=== PATIENT | female | born 1935 | race Caucasian/White ===

== ENCOUNTER 2023-09-21 10:09 | Emergency (ER) | payer MEDICARE, SELFPAY ==
[2023-09-21 10:16] VITALS: BP 183/63; PULSE 56; RESP 20; TEMP 36.7; O2SAT 98
--- NOTE | 2023-09-21 10:37 | ED.SOB ---
HPI - SOB/Dyspnea General Chief Complaint: Unspecified Stated Complaint: Swelling / doesn't feel well History of Present Illness HPI Narrative: Patient presents stating that she just does not feel well. Patient states she has had a 5 lb weight gain over the last 2 weeks and complains of increased swelling to both of her lower extremities with were swelling to the left than the right. Patient is short of breath at rest but denies a history of COPD. 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 Patient also reports that her blood pressure has been elevated home and she has a headache with dizziness at rest. Patient denies any syncopal episodes denies any chest pain. Related Data Home Medications Medication Instructions Recorded Confirmed cephalexin 500 mg capsule See Rx Instructions .Route .COMPLEX 09/21/23 09/21/23 cholecalciferol (vitamin D3) 25 25 mcg PO DAILY 09/21/23 09/21/23 mcg (1,000 unit) tablet (Vitamin D3) cyanocobalamin (vitamin B-12) 1,000 mcg PO DAILY 09/21/23 09/21/23 1,000 mcg tablet donepezil 5 mg tablet 5 mg PO DAILY 09/21/23 09/21/23 escitalopram oxalate 10 mg tablet 10 mg PO DAILY 09/21/23 09/21/23 hydralazine 25 mg tablet 25 mg PO BID 09/21/23 09/21/23 ipratropium bromide 21 mcg (0.03 See Rx Instructions .Route .COMPLEX 09/21/23 09/21/23 %) nasal spray levothyroxine 25 mcg tablet 25 mcg PO DAILY 09/21/23 09/21/23 lisinopril 20 mg tablet 20 mg PO DAILY 09/21/23 09/21/23 meclizine 25 mg tablet 25 mg PO QID PRN Dizziness 09/21/23 09/21/23 metoprolol succinate 25 mg 25 mg PO DAILY 09/21/23 09/21/23 tablet,extended release 24 hr oxybutynin chloride 10 mg 10 mg PO DAILY 09/21/23 09/21/23 tablet,extended release 24 hr ropinirole 2 mg tablet 2 mg PO DAILY 09/21/23 09/21/23 solifenacin 10 mg tablet 10 mg PO DAILY 09/21/23 09/21/23 Allergies Allergy/AdvReac Type Severity Reaction Status Date / Time No Known Allergies Allergy Unverified 09/21/23 10:20 Review of Systems Review of Systems: CONSTITUTIONAL: Denies fever, chills, or sweats. EYES: Denies visual changes, redness, or discharge. ENT: Denies rhinorrhea, congestion, sore throat, or otalgia. CARDIOVASCULAR: Denies chest pain, palpitations, or edema. RESPIRATORY: Denies cough or dyspnea. GASTROINTESTINAL: Denies abdominal pain, nausea, vomiting, or diarrhea. GENITOURINARY: Denies dysuria or hematuria. SKIN: Denies rash or itching. MUSCULOSKELETAL: Denies back pain, joint pain, or myalgia. NEUROLOGIC: Denies headache, numbness, or weakness. PSYCHIATRIC: Denies anxiety or depression. PMFSH Comments At time of signature, agree with nursing past medical, surgical, social and family history. There is no relevant family history pertinent to the presenting complaint Exam Narrative: GENERAL: Well-appearing, well-nourished, and in no acute distress. HEAD: Normocephalic, atraumatic. EYES: PERRLA and EOMI. ENT: Nares clear, no rhinorrhea or epistaxis. Mucous membranes moist. NECK: Supple. CHEST: No respiratory distress. Lungs diminished all 4 quadrants HEART: Regular rate and rhythm. No murmur heard. Normal peripheral pulses. ABDOMEN: Soft, nontender, nondistended, normal active bowel sounds. EXTREMITIES: Normal range of motion. Bilateral edema to both lower extremities with 1+2 left lower extremity pedal pulses palpable SKIN: Warm, dry, no rash. NEURO: No focal deficits. Alert and oriented x3. Darlene Coma Scale Eye Opening: Spontaneous 4 Isabel Coma Scale Motor: Obeys Commands 6 Darlene Coma Scale Verbal: Oriented 5 Isabel Coma Scale Total 15 Course Course Level of Care: Express Care Visit Vital Signs Vital signs: Vital Signs Temperature 36.7 C 09/21/23 10:16 Pulse Rate 56 L 09/21/23 10:16 Respiratory Rate 20 09/21/23 10:16 Blood Pressure 183/63 H 09/21/23 10:16 Pulse Oximetry 98
== END 2023-09-21 10:40 | disposition short-term general hospital (02) ==
PROVIDERS: Emergency Provider Nurse Practitioner Family; PCP Internal Medicine
DX: R06.00 Dyspnea, unspecified (principal); R60.0 Localized edema; R42 Dizziness and giddiness; E78.00 Pure hypercholesterolemia, unspecified; I10 Essential (primary) hypertension; E11.9 Type 2 diabetes mellitus without complications; E03.9 Hypothyroidism, unspecified; Z85.828 Personal history of other malignant neoplasm of skin
CPT/HCPCS: 99212; G0463

== ENCOUNTER 2024-09-24 10:35 | Outpatient (CLI) | payer MEDICARE, SELFPAY ==
--- OUTSIDE RECORDS SUMMARY | 2024-09-24 10:42 | XMS_ITS | Clinical Summary ---
Author Organization [facility] [address] Address [address] [place] [address] Phone Care Team Providers Care Lead Care Manager Name Role Phone Pierre Fuentes Primary Care Provider [phone] Allergies Active Allergy Reactions Criticality Noted Date Comments Penicillin G Itching Low Simvastatin Muscle pain Medium Reaction: Myalgias, Sulfa (Sulfonamide Antibiotics) Unknown Medications cyanocobalamin (Vitamin B-12) 1,000 mcg tablet Take 1 tablet (1,000 mcg total) by mouth daily Active meclizine (ANTIVERT) 25 mg tablet Take 1 tablet (25 mg total) by mouth 4 (four) times a day as needed for dizziness 100 tablet 2 Active solifenacin (VESIcare) 10 mg tablet Take 1 tablet (10 mg total) by mouth daily 30 tablet 11 4 Active escitalopram (LEXAPRO) 10 mg tablet Take 1 tablet (10 mg total) by mouth daily 90 tablet 1 4 Active UNABLE TO FIND 1 each daily Med Name: Neuriva Active donepeziL (ARICEPT) 5 mg tablet Take 1 tablet by mouth once daily 90 tablet 1 4 Active Additional Information Patient taking differently: 5 mg oral Nightly, Take 1 tablet by mouth once daily, Reported on 01/16/2024 levothyroxine (SYNTHROID) 25 mcg tablet Take 1 tablet by mouth once daily 90 tablet 1 4 Active Additional Information Patient taking differently: 25 mcg oral Daily (early AM), Reported on 01/16/2024 oxyBUTYnin XL (DITROPAN-XL) 10 mg 24 hr tablet Take 1 tablet (10 mg total) by mouth daily 4 Active amLODIPine (NORVASC) 2.5 mg tablet Take 1 tablet (2.5 mg total) by mouth daily Active ipratropium (ATROVENT) 21 mcg (0.03 %) nasal spray USE 2 SPRAY(S) IN EACH NOSTRIL TWICE DAILY Active lisinopriL (PRINIVIL,ZESTR IL) 20 mg tablet Take 1 tablet by mouth once daily 90 tablet 4 Active Additional Information Patient taking differently: 20 mg oral Daily, Reported on 01/16/2024 polyethylene glycol (MIRALAX) 17 gram/dose bulk powder Take 17 g by mouth daily 510 g 4 Active rOPINIRole (REQUIP) 2 mg tabletIndicatio ns:Restless legs Take 1 tablet by mouth nightly 90 tablet 4 Active Active Problems Problem Noted Date Diagnosed Date Bilateral impacted cerumen 02/18/2024 Assessment & Plan (02/18/2024 3:52 PM CDT): Avoid ear cleaning techniques Have hearing aids evaluated by Dr [facility] Acute blood loss anemia 01/17/2024 Hematochezia 01/16/2024 Assessment & Plan (01/16/2024 11:03 PM CDT): Pt with BRBPR during several bowel movements x1 day. Differentials include brisk diverticular bleed, colorectal cancer, hemorrhoidal bleed, angiodysplasia. Hgb 10.0 on presentation, acutely decreased from 12.2 on 12/03. - GI consult - NPO from midnight - IVF - continue to monitor CBC STANTON (acute kidney injury) 01/16/2024 Assessment & Plan (01/16/2024 11:14 PM CDT): Patient noted to have STANTON with Cr 1.91 over baseline 1.56 (1 month ago). Suspect due to relative hypovolemia and systemic illness. Currently producing urine; will defer additional lab/imaging diagnostics pending fluid resuscitation. - BMP - s/p 1 L IVF - Continue NS 100 mL/hr - Consider UA with microscopy, Renal/bladder US, Mann, UCr if refractory or significant STANTON - renally dose medications Other forms of dyspnea 11/28/2023 Basal cell carcinoma (BCC) of skin of nose 09/28 Assessment & Plan (10/01/2023 11:11 AM CDT): Continue to cleanse nose and apply Aquaphor ointment twice daily and as needed for 2 more weeks Assessment & Plan (09/29/2023 11:54 AM CDT): Continue to cleanse area twice daily and apply Aquaphor ointment for constant layer Follow up next week for further suture removal Lesion of nose 09/10/2023 Assessment & Plan (09/15/2023 1:47 PM CDT): Excision of 1 cm Nasal dorsum skin lesion with Frozen section and graft or flap repair Risks and complications: Anesthesia, bleeding, infection, benign versus malignant pathology, recurrence of lesion, injury to arteries, nerves and veins, scarring and need for further treatment Assessment & Plan (09/10/2023 10:59 AM CDT): Patient has a lesion on her nose states will not heal she is very concerned worried about it I am going to refer her to Ear Nose and Throat for evaluation. 88 years old I do not want to refer her to [place] to her Ear Nose and Throat or corporate development officer take a look at this so we will for for her to Dr. Xavier at [facility] Persistent cough 08/26/2023 Assessment & Plan (09/10/2023 10:57 AM CDT): Patient has been taking Roxanna. Thinks it is making her feel hung over advised to discontinue the medication. She has not convinced that really helped her in the 1st place. Cough is allergy related so-so chest pain or shortness a breath or fever or chills. She is understands it may just have to run his course with allergy changes Assessment & Plan (08/26/2023 12:30 PM CDT): Patient has a persistent cough productive she is very worried about this chest x-ray was negative patient is so advised. Cough has been present about 3-6 weeks postnasal drainage associated with cough Anxiety 12/30/2022 Assessment & Plan (01/16/2024 11:11 PM CDT): On escitalopram 10 mg p.o. daily prior to admission - citalopram 10 mg p.o. od Assessment & Plan (09/10/2023 10:57 AM CDT): Patient advised me that the citalopram at 5 mg daily is not working would like something stronger advised patient we will increase the dose to 10 mg.. Patient's notify me if this is ineffective. Acute rhinitis 10/08/2022 Assessment & Plan (10/08/2022 3:47 PM CDT): Runny nose for weeks, no other sinus symptoms. Was not tested for COVID. No acute findings on exam. Encouraged Flonase as directed. Can use claritin also. Increase fluids (water) Cool mist humidifier at night Use sinus rinses to help flush bacteria and help with congestion. Encouraged honey, marshmallows, or chloraseptic to help coat throat. Call with any worsening or persistent symptoms. Restless legs 08/20/2022 Assessment & Plan (01/16/2024 11:11 PM CDT): Continue Ropinirole 2 mg p.o. b.i.d. Assessment & Plan (02/22/2023 4:12 PM CDT): Requip 2 mg daily has helped her with her leg cramps. She would like greater improvement but does not want to go to higher dose of the Requip because of side effects . I have no other recommendations at this time patient's so advised Assessment & Plan (12/30/2022 6:08 PM CDT): Patient did not get immediate relief so she stopped taking the medication. Advised patient she needs to resume medication and I am increasing the dose from 1 mg at HS to 2 mg. Assessment & Plan (08/21/2022 1:00 PM CDT): Patient is having restless legs syndrome . Patient's heart day and night. I am starting her on ropinirole 1 mg 2-3 hours before bedtime dispensed 30 with 3 refills. Conductive hearing loss, bilateral 05/16/2022 Assessment & Plan (10/08/2022 3:48 PM CDT): Patient states hearing aides have not helped symptoms. No acute findings on exam. Keep follows with tank house operator. Encouraged flonase and antihistamine as needed for rhinitis. Assessment & Plan (05/16/2022 5:59 PM PRINT LINE SUPERVISOR): Patient did follow through in see the tank house operator. 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 04/04 Assessment & Plan (04/19/2022 12:29 PM PRINT LINE SUPERVISOR): Patient is a poor historian she noticed that she is having more and more difficulty hearing out of her right ear will refer to audiology Overactive bladder 10/07/2019 Assessment & Plan (01/16/2024 11:10 PM CDT): On solifenacin 10 mg po od, oxybutynin XL 10 mg po od at home - continue oxybutynin XL Assessment & Plan (09/10/2023 10:56 AM CDT): Patient states oxybutynin is not working therefore I am going to give this patient a trial of VESIcare 10 mg daily Assessment & Plan (02/22/2023 4:10 PM CDT): Patient's is very happy with results with oxybutynin. Assessment & Plan (08/21/2022 1:01 PM CDT): Symptoms remain control on present medication Ditropan/oxybutynin 10 mg daily Assessment & Plan (11/17/2021 3:41 PM CDT): Symptoms controlled with present medication Assessment & Plan (06/15/2021 2:34 PM PRINT LINE SUPERVISOR): Symptoms well control on present medication no change in therapy Assessment & Plan (08/22/2020 4:51 PM CDT): Patient's condition reasonable control present medication no change in therapy Assessment & Plan (10/07/2019 5:02 PM CDT): Patient complains of frequency urgency and sometimes incontinence month started on oxybutynin 10 mg daily. Medicare annual wellness visit, subsequent 03/03 Assessment & Plan (08/26/2023 12:28 PM CDT): History and physical completed patient's health risk assessment health maintenance reviewed in addressed. Patient's my care for 20 years she is doing very well . Her diabetes has been well controlled patient is not nearly as anxious she has been in the past when her was in living in deteriorating health.. EGFR lipid profile not indicated and 88-year-old lady who is diabetes is excellent. Assessment & Plan (08/21/2022 12:59 PM CDT): History and physical completed patient's health risk assessment health maintenance reviewed in addressed. No new health problems since her last visit with me. Patient's anxiety is decreased over the past year. Diabetes well controlled patient is very stable. Assessment & Plan (06/15/2021 2:32 PM PRINT LINE SUPERVISOR): History and physical completed patient's health risk assessment health maintenance reviewed in addressed. No new health problems since her last visit with me. Patient's health is overall unchanged for last 3 years. She is diabetic which is been well controlled. He has a long anxiety unchanged Assessment & Plan (08/22/2020 4:51 PM CDT): History and physical completed patient's health risk assessment health maintenance reviewed in addressed. Patient's COVID vaccine completed. Assessment & Plan (03/03/2019 2:15 PM CDT): Patient's history and physical completed health risk assessment also come reviewed in completed patient is 84 years old she is doing very well.. Is not in ears anxious today as on previous occasions anxiety seems to be reasonably controlled. I have no new recommendations for this patient she is able to her activities daily living without significant difficulties.. Patient given Prevnar 13 and immunization today Chronic vertigo 07/20/2017 Assessment & Plan (08/22/2020 4:53 PM CDT): Reviewed with this patient she has seen specialists before for this problem.. Patient is description often times describes positional vertigo.. He is aware to fact she that she needs to slow down in changing positions. [place] straining did not help her. Antivert is no longer helping. She complains of her legs jumping at night and frequent dizziness I mother trial on amitriptyline 10 mg see if this will not help. Assessment & Plan (12/29/2018 4:30 PM CDT): Patient constantly complains of dizziness. Had a walk today she had a normal gait I reassured her she has a normal gait. She is afraid on going down stairs she uses four quad cane when doing this. In talking with this patient she admits that she has had a fear of dizziness 40 year in reality is no worse than it was years ago. She discontinue meclizine last has not had any negative effects of getting off this medicine.. In fact she has a little bit more energy without the meclizine. She is less sleepy.. I advised this patient that the dizziness is predominant psychological up more than physiological and is probably going to always be a part of her.. Reassured this patient that she is doing very well for age her gait is normal in terms of steps distance and pace of her walking. Assessment & Plan (04/06/2018 6:26 PM PRINT LINE SUPERVISOR): Patient in the past with complaint of dizziness very frequently on her visit today this not a problem. Assessment & Plan (12/13/2017 4:11 PM CDT): Patient's dizziness is continues I do not think is ever going to go away several times a week she has seen ear nose and throat with this particular problem. Very worried about if she tolerates it is not progressed over the last 5 years. Assessment & Plan (10/15/2017 5:50 PM CDT): Patient's saw Dr. Banuelos for dizziness workup was negative . She was referred to Neurology at [facility] Patient not going to follow through on this because of appointment is into February. Patient realizes not a long time weight since she has been having dizziness 20+ years or longer. She feels the meclizine does help her. Assessment & Plan (07/20/2017 5:58 PM CDT): Patient's dizziness is a chronic problems getting worse she has been using meclizine which helps sometimes. With her dizziness she has no severe headaches no nausea no vomiting no hearing loss. Referred to Ear Nose and Throat for evaluation. SOB (shortness of breath) on exertion 06/21/2017 Assessment & Plan (12/30/2022 6:09 PM CDT): Patient complains breath. Especially on exertion he ambulated in the office using a pulse ox had no difficulty to saturation remained above 94% patient is reassured that she is breathing normal. Patient has a history of anxiety this is an expression of that. Assessment & Plan (04/06/2018 6:26 PM PRINT LINE SUPERVISOR): Patient on previous visits frequently complained of dyspnea today this is not a problem. Assessment & Plan (06/21/2017 4:55 PM PRINT LINE SUPERVISOR): Nonspecific dyspnea check a BNP level Type 2 diabetes mellitus wit hout complication, without long-term current use of insulin 09/18/2013 Overview (08/07/2016): DMII WO CMP NT ST UNCNTR Assessment & Plan (01/16/2024 11:04 PM CDT): Last HbA1c: 6.5 on 08/24; BG 202 on presentation Diet controlled - Pt placed on SSI Assessment & Plan (08/26/2023 12:29 PM CDT): No polyuria polyphagia polydipsia. BP well controlled HgbA1c 6.5 no change in therapy Hgb A1C Estim. Avg Glu (eAG) Latest Ref Rng 4.0 - 5.6 % mg/dL 03/02/2019 6.4 (H) 137 07/12/2019 6.2 (H) 131 03/10/2020 6.3 (H) 134 02/12/2021 6.4 (H) 137 11/16/2021 6.8 (H) 148 04/18/2022 6.5 (H) 140 08/25/2023 6.5 (H) 140 Legend: (H) High Assessment & Plan (02/22/2023 4:12 PM CDT): Hemoglobin HgbA1c has been ordered patient will postpone the test to another date. Diabetic 20 years excellent controlled Assessment & Plan (08/21/2022 1:02 PM CDT): Diabetes has consistently been well controlled HgbA1c less than 6.5 Assessment & Plan (05/16/2022 5:57 PM PRINT LINE SUPERVISOR): Diabetes very well controlled hemoglobin HgbA1c 6.5 Assessment & Plan (04/19/2022 12:23 PM PRINT LINE SUPERVISOR): Diabetes remains well controlled HgbA1c 6.5 no change in therapy Assessment & Plan (11/17/2021 3:40 PM CDT): Update patient's hemoglobin HgbA1c get a BMP would like to know patient's renal functions.. Assessment & Plan (06/15/2021 2:33 PM PRINT LINE SUPERVISOR): Patient's diabetes is well controlled past 4 years her HgbA1c ranges been between 6.0-6.4. Foot exam is normal. Diabetic 20+ years I see no benefit in getting a urine microalbuminuria on this lady at age 86 stable diabetes. Lipid profile done. Blood pressure controlled. Assessment & Plan (02/12/2021 5:49 PM CDT): Update patient's hemoglobin HgbA1c results respect to her diabetes she has been doing very well.. Retinopathy and no nephropathy or neuropathy she has been diabetic 20 plus years. Assessment & Plan (08/22/2020 4:52 PM CDT): Diabetes consistently well control no laboratory studies today Assessment & Plan (03/10/2020 5:27 PM PRINT LINE SUPERVISOR): Check patient's HgbA1c today. Is not bring her glucometer today. Assessment & Plan (11/19/2019 2:55 PM CDT): Glucometer was reviewed blood pressure well control no change in therapy Assessment & Plan (10/07/2019 5:05 PM CDT): Diabetes is continues to be well controlled metformin discontinue. Assessment & Plan (05/06/2019 10:54 AM PRINT LINE SUPERVISOR): Patient's HgbA1c is been excellent him discontinue metformin because of potential cause of diarrhea she has been a diabetic over 20+ years. See her back in the next 3 months HgbA1c 1 week before. Assessment & Plan (03/03/2019 2:16 PM CDT): Patient's HgbA1c came back at 6.4 I reviewed a glucometer she has not had any hypoglycemic reactions patient's diabetic foot exam is very good and I eye exam is current. Assessment & Plan (02/19/2019 6:25 PM CDT): Patient's last hemoglobin HgbA1c was 5.8. Reviewed patient's glucometer findings results were excellent. PATIENT'S DISAPPOINTED BECAUSE HER GLUCOSE SOMETIMES REACHES 166. CHANGE OF HER GLUCOMETER READINGS FOR FROM 104-166. PATIENT'S ADVISED HGBA1C IS EXCELLENT AND THAT HER DIABETES IS VERY WELL CONTROLLED. NO CHANGES IN THERAPY NO EVIDENCE OF HYPOGLYCEMIA BY DESCRIPTION ARE REVIEWING HER GLUCOMETER RESULTS. PATIENT LEFT SOMEWHAT DISSATISFIED BECAUSE OF HER GLUCOSE READINGS IN THE 160S.. Assessment & Plan (04/06/2018 6:25 PM PRINT LINE SUPERVISOR): Patient glucometer readings very good in the low 100s. No change in therapy check a hemoglobin HgbA1c today. B12 Assessment & Plan (12/13/2017 4:13 PM CDT): Diabetes is unchanged. Continue current treatment regimen. Reminded to bring in blood sugar diary at next visit. Dietary recommendations for ADA diet. Discussed ways to avoid symptomatic hypoglycemia. Diabetes will be reassessed in 6 months. Hemoglobin HgbA1c 6.0. Hyperlipidemia 09/18/2013 Overview (08/07/2016): HYPERLIPIDEMIA NEC/NOS Assessment & Plan (10/07/2019 5:04 PM CDT): Discontinue simvastatin as a possible cause of her diarrhea Acquired hypothyroidism 09/18/2013 Overview (08/09/2016): HYPOTHYROIDISM NOS Assessment & Plan (01/16/2024 11:04 PM CDT): On levothyroxine 25 mcg po od prior to admission TSH 2.01 08/2022 - continue same Assessment & Plan (08/21/2022 1:01 PM CDT): TSH level in therapeutic range Assessment & Plan (03/10/2020 5:26 PM PRINT LINE SUPERVISOR): TSH levels have been in therapeutic range will update lab today. Assessment & Plan (07/19/2019 6:07 PM CDT): Update patient's TSH level Assessment & Plan (03/03/2019 2:21 PM CDT): Patient's hypothyroid remains a well controlled Assessment & Plan (08/10/2018 5:57 PM CDT): TSH level in therapeutic range recheck on the next visit. Assessment & Plan (04/06/2018 6:24 PM PRINT LINE SUPERVISOR): TSH level will be checked today. Assessment & Plan (12/13/2017 4:13 PM CDT): Continue to monitor TSH level as well as no change in therapy medication this time. Hypertension, essential 09/18/2013 Overview (08/09/2016): HYPERTENSION NOS Assessment & Plan (01/16/2024 11:05 PM CDT): On amlodipine 2.5 mg po od, hydralazine 25 mg po bid, lisinopril 20 mg po od, toprol XL 25 mg po od - continue same Assessment & Plan (08/26/2023 12:27 PM CDT): Blood pressure readings 146/66 previous blood pressures have been at goal less than 140 systolic less than 90 diastolic is 88 years old and doing well no change in therapy Assessment & Plan (02/22/2023 4:10 PM CDT): Blood pressure remains well controlled patient is tolerating medications no change in therapy Assessment & Plan (12/30/2022 6:08 PM CDT): Blood pressure remains well controlled patient is tolerating medications no change in therapy Assessment & Plan (08/21/2022 1:02 PM CDT): Blood pressure results excellent continue present therapy no symptoms referable to hypertension. Assessment & Plan (04/19/2022 12:22 PM PRINT LINE SUPERVISOR): Blood pressure is elevated today will make no changes. Here back in one-month Assessment & Plan (11/17/2021 3:40 PM CDT): Blood pressure well controlled patient continues present therapy. Assessment & Plan (06/15/2021 2:35 PM PRINT LINE SUPERVISOR): Hypertension remains well control no change in therapy Assessment & Plan (03/27/2021 4:47 PM PRINT LINE SUPERVISOR): Blood pressure remains well controlled increase in pain over joint special left hip. Assessment & Plan (02/12/2021 5:48 PM CDT): Hypertension remains well control no change in therapy Assessment & Plan (03/10/2020 5:25 PM PRINT LINE SUPERVISOR): Blood pressure well controlled patient has no new health problems since her last visit. She is tolerating medications no change in therapy. Assessment & Plan (10/07/2019 5:03 PM CDT): Hypertension well controlled patient is tolerating the present medication no change in therapy. Assessment & Plan (03/03/2019 2:15 PM CDT): Hypertension remains well control no change in therapy Assessment & Plan (02/19/2019 6:26 PM CDT): Hypertension reasonably controlled patient is somewhat anxious today. She has no nausea vomiting no headaches no chest pain. Patient is chronically dizzy for 20 years. Assessment & Plan (12/29/2018 4:27 PM CDT): I added hydralazine 25 mg b.i.d. To her her regimen week ago her blood pressure is very well controlled at this time.. She is tolerating medications she has no side effects no change in therapy at this point. Assessment & Plan (12/26/2018 3:45 PM CDT): Patient's high blood pressure can be very high on some occasions and other times the blood pressure is well controlled patient has been to the emergency room on repeated occasions for blood pressure. She also has a high anxiety level. Patient's blood pressure today is 182/90. Patient does not feel well her pulse is 49 repeated blood pressure is similar pulse and blood pressures were obtained he here in office again. Patient has no chest pain no shortness of breath no severe headaches no diplopia she feels tired which is a chronic problem. And she has dizziness also chronic. I wrote out clear instructions for this patient reviewed with her understands she is to his not take metoprolol for blood pressure. Minutes started on hydralazine 25 mg daily and she is to continue lisinopril 20 mg daily.. Did not think at this time this patient will follow instructions well enough to take hydralazine 3 times a day. I will see this patient back in 3-4 days re-evaluate her blood pressure and pulse. Review of her chart visits prior to this time her pulse is been acceptable above 50. Assessment & Plan (10/19/2018 2:40 PM CDT): I received several phone calls from home health last week in a week for regarding patient's blood pressure. Patient has some occasions refused to come in. On October 16, 2018 she did not feel well advised to get an appointment she walked into the office without appointment I talked to her we checked her blood pressure extraordinary high 200/110. Referred this patient to emergency room advised him prior to arrival. Blood pressure in emergency room was 210 /96 he was treated emergency room observe for several hours released.. She does not feel as nervous anxious or is bad today she did Friday as several other day. Patient's stress concerns regarding her gait. She feels unsteady on her feet she will not use a walker. She is agreeable to start using her cane again.. Patient knows her blood pressure medicines I am going to continue on her present medicine on metoprolol and lisinopril her blood pressure is 119 over 55. Patient give me a progress report later this week. I spent at least 20 minutes of sleep is discussing her hypertension medications and the need for her to use a walker since she is concerned about falling. See her in 2 months. Assessment & Plan (08/10/2018 5:59 PM CDT): Hypertension well controlled patient is tolerating the medication no change in therapy. Assessment & Plan (04/06/2018 6:24 PM PRINT LINE SUPERVISOR): Hypertension is unchanged. Continue current treatment regimen. Dietary sodium restriction. Continue current medications. Blood pressure will be reassessed at the next regular appointment. Assessment & Plan (12/13/2017 4:12 PM CDT): Hypertension is unchanged. Continue current treatment regimen. Blood pressure will be reassessed at the next regular appointment. Assessment & Plan (10/15/2017 5:58 PM CDT): Blood pressure elevated today patient is asymptomatic however she is quite a bit more anxious today than usual will monitor blood pressure on outpatient basis per no change in therapy at this time. She has had elevations like this in the past office and after visit blood pressure comes down however I did not repeat blood pressure today in visit. Assessment & Plan (07/20/2017 5:57 PM CDT): Patient's blood pressure is elevated with a diastolic of 100 this is unusual for her. Patient's more anxious today she has no severe headaches chest pain or shortness of breath. No change in medication will continue monitor blood pressure. Assessment & Plan (03/09/2017 9:20 PM PRINT LINE SUPERVISOR): Hypertension is unchanged. Continue current treatment regimen. Dietary sodium restriction. Continue current medications. Blood pressure will be reassessed at the next regular appointment. Patient's patient's blood pressure is well controlled. Diverticulosis of intestine 03/09/2012 Overview (08/09/2016): Diverticulosis Osteoarthritis 03/09/2012 Overview (08/09/2016): Osteoarthritis Assessment & Plan (03/27/2021 4:46 PM PRINT LINE SUPERVISOR): Patient a of increasing pain in left hip she is convinced she has a fracture despite having no history of a fall. Or any trauma to the hip.. Patient has some symptoms consistent with osteoarthritis and possible bursitis. X-ray of her hip shows degenerative changes and no fracture. Place this patient on prednisone 20 mg twice a day for 10 days progress report next Friday. Patient has been taking about 800 ibuprofen for the day with mild response in terms of pain she has is advised stop ibuprofen while taking the prednisone. Assessment & Plan (02/12/2021 5:51 PM CDT): Patient is having a lot a hip pain is calling his sciatica is more likely this osteoarthritis. Occasional heat or ice to the area. At her age I do not want to take any non steroidal anti-inflammatory as a first-line therapy recommend and ruled out for her to take arthritis Tylenol 1 tablet 3 times a day.. This patient can not ambulate and weightbear without any difficulty. Resolved Problems Problem Noted Date Diagnosed Date Resolved Date Sensation of plugged ear on right side 02/12/2021 06/15/2021 Assessment & Plan (02/12/2021 5:53 PM CDT): Normal exam patient was given samples Zyrtec dry. Ear pain, right 12/23/2019 03/27/2021 Assessment & Plan (12/23/2019 3:44 PM CDT): Patient is not a good historian she complains of with sounds like of sensation of fullness in a year. He denies actual pain. He has been hard hearing for years. Examination of her ear is completely normal he does have some mucus production a nasal pack. No sore throat no fever no chills no headaches.. Possible mild parotitis I gave some Roxanna see if it will help her. Her the 180 mg 10 the samples given. Chronic diarrhea 10/07/2019 11/17/2021 Assessment & Plan (08/22/2020 4:52 PM CDT): Continue Lomotil. Assessment & Plan (11/19/2019 2:54 PM CDT): Patient is here for because of diarrhea and we sent a prescription to [facility] go through head call it and. Diarrhea has improved she is doing well.. Denies any blood or mucus in her stools Assessment & Plan (10/07/2019 5:02 PM CDT): Patient complains of chronic diarrhea she is no longer taking metformin. Plans at this time discontinue simvastatin is a possible cause of her diarrhea. Patient is a poor historian her she may still be taking the metformin.. I am going to start her on Lomotil 2.5 mg b.i.d. I dispense 40. Onychomycosis 07/19/2019 08/22/2020 Assessment & Plan (07/19/2019 6:05 PM CDT): Patient concerned about fungal toenail she has minimal findings on her feet. Been using athlete's feet clean. Patient's advised that up problems a minimal she can continue to athlete's foot cream as needed. Patient reassured this health conditions not a wrist her overall health. Pain of right lower extremity 06/22/2019 08/22/2020 Assessment & Plan (06/22/2019 4:25 PM PRINT LINE SUPERVISOR): S/p fall that occurred greater than one month. She reports numbness and tingling associated in the RLE. Reflex intact, ROM normal, pulses present and no discoloration. Given known injury we will do xray to r/o any acute fracture. Localized edema 06/22/2019 02/12/2021 Assessment & Plan (06/22/2019 4:24 PM PRINT LINE SUPERVISOR): Patient with bilateral lower extremity R>L that occurred post fall over one month ago. She has pain and slight erythema of the RLE. Given her sedentary lifestyle and persistent edema we will do venous doppler to r/o DVT. If no DVT noted have encouraged her to decrease her salt intake and to keep feet elevated to level of heart. She can also use compression for edema. Pain of left lower extremity 06/22/2019 08/22/2020 Assessment & Plan (03/10/2020 5:26 PM PRINT LINE SUPERVISOR): Patient's nonspecific hip pain very mild. Tylenol as needed. Patient is very concerned about her gait. Patient's gait is normal and consistent with someone 85 years of age. Head congestion 05/06/2019 11/19/2019 Assessment & Plan (05/06/2019 10:51 AM PRINT LINE SUPERVISOR): Patient having a lot head congestion mainly nasal passages blockage postnasal drainage no headache no fever no chills some coughing. I recommend this lady try the nasal rinse call simply saline I gave her photocopy of the product she can get a [facility]. No pills are given. Patient's exam is benign lungs are clear no wheezing no rhonchi the mucus in the nasal passage. Generalized anxiety disorder 02/19/2019 08/20/2022 Assessment & Plan (05/16/2022 5:58 PM PRINT LINE SUPERVISOR): Lexapro has made a significant improvement in his patient's mood anxiety is less depression is gone will continue 5 mg daily. Assessment & Plan (04/19/2022 12:22 PM PRINT LINE SUPERVISOR): Patient is not having outbreaks of anger diabetes gotten worse and depression symptoms I am going to discontinue BuSpar start her on Lexapro 5 mg daily see her back in one-month Assessment & Plan (11/17/2021 3:41 PM CDT): Patient's recently diet he been sick for several years. Her anxiety level least 50-75%. Patient is here with her medical power managing attorney who concurs that since her passed patient's more focused and anxiety levels down. Assessment & Plan (06/15/2021 2:35 PM PRINT LINE SUPERVISOR): Patient's anxiety days focus on her 's recent become a patient of mine. This patient is 89 years old he cares on reasonable conversation he walks with the are a slow gait he has advanced arthritis. Patient had bruises easily and skin is thin he sometimes has some bleeding. Laceration scan she is very focus on this bleeding is minimal I advised her is no series consequences from the bleeding is nothing anyone can do he is not on aspirin or blood thinners.. Assessment & Plan (11/19/2019 2:55 PM CDT): Anxieties complete improved over the past year Assessment & Plan (10/07/2019 5:04 PM CDT): Anxieties continues to be improved will continue BuSpar. Assessment & Plan (07/19/2019 6:02 PM CDT): Patient has a generalized anxiety disorder less intense today it has been in the past. Assessment & Plan (03/03/2019 2:20 PM CDT): Today's date patient's general anxiety is very calm and controlled. Assessment & Plan (02/19/2019 6:35 PM CDT): Patient admitted she is very anxious she complains of not being walk straight, she complains that her vision is not right. Patient is seen the manager oncology as sure vision she informs me that day advised her vision was normal.. Patient's gait is normal despite she feels like she is walking awkwardly. He does consistent with someone her age of 84. She is across chronic history of dizziness worry about her 's health. She is on BuSpar. Patient request that she is start on Aricept she because of memory. Patient's mini-mental exam was a 26. Patient was started on Aricept 5 mg daily. Patient's advised Aricept has lots of side effects specially GI. I spent 45 minutes some more going over with very is symptomatology the most likely psychologically related than actual disease UTI (urinary tract infection) 02/19/2019 03/03/2019 Assessment & Plan (02/19/2019 6:34 PM CDT): Patient's convinced she has UTI because of back pain in the morning. She tells and back pain goes away after she urinates.. Patient would not be status foot I without having a urinalysis. However when she was sent to the lab she was not able to give a specimen.. Feeling tired 12/26/2018 02/12/2021 Assessment & Plan (11/19/2019 2:55 PM CDT): Patient's fatigue is resolved she feels well no particular complaints today.. She is less anxious which is I think a big part of her sensation of fatigue. Assessment & Plan (07/19/2019 6:01 PM CDT): Discussed patient's impression of fatigue. Her level of function consistent with a a patient so advised. I previously done laboratory studies for fatigue they were all negative. Assessment & Plan (12/29/2018 4:28 PM CDT): Patient does not have any symptoms of fatigue at this time it may be related to the fact she to stop taking the Antivert.. Part of her fatigue I have always believe was psychological. Assessment & Plan (12/26/2018 3:42 PM CDT): Patient complains of feeling tired she is not any more [place] than this. He has had this complaint on previous occasions. Focus is a lot on feeling dizzy this been going on least 3 years. Takes the meclizine. Possible meclizine is aggravating her sense of feeling tired. Previous TSH level in B12 levels have been normal. This patient does have bradycardia today pulse rate of 49. She saw her orthopedic physician several weeks and had a very slow pulse at that time. Medication changes are made to improve her pulse patient will be seen in the next few days for monitoring. Pityriasis in adult 10/19/2018 10/20/19 19 Diarrhea 08/10/2018 07/19/2019 Assessment & Plan (05/06/2019 10:52 AM PRINT LINE SUPERVISOR): Advised patient totally stop metformin and simvastatin. Both these medications can cause diarrhea she is 84 years old she is very bothered by the diarrhea. Advised to call me in 1 week can give me a progress report anticipate if the medications because that she be 90% improved between 2 and 4 weeks after discontinuing. Assessment & Plan (08/10/2018 5:55 PM CDT): Patient advised me she is having diarrhea 6 months to a year multiple times a day she goes to the bathroom sometimes watery often times very loose. She has had a few accidents. She is taking no medications a causes she has use Lomotil in the past and has helped her some. Her abdominal exam is benign she has no blood or mucus in the stools he has no abdominal pain. At this time I advised her to start with a boat forming age. Call pharmacist [facility] to give this patient Metamucil/FiberCon type product patient like to begin taking the tablet form patient will let me know in a few weeks this helps her. Immunization due 10/15/2017 12/13/2017 Assessment & Plan (10/15/2017 6:02 PM CDT): Will contact patient in update the for Prevnar 13 between now and the next visit. Will consider mailing her prescription he uses a pharmacy. Dry lips 07/20/2017 03/03/2019 Assessment & Plan (07/20/2017 6:00 PM CDT): Patient complains of lips feeling dry she has no medications that should cause excessive dryness. Examination lips are dry no lesions are present nothing to suggest malignancy. Plans give her Kenalog dental paste applied to her lips. Twice a day p.r.n. Acute cystitis without hematuria 06/21/2017 07/20/2017 Assessment & Plan (06/21/2017 4:54 PM PRINT LINE SUPERVISOR): Patient may very well have acute cystitis I am going to not wait for urine results started on doxycycline 100 milligrams twice a day. See assessment on the left flank pain Left lower quadrant pain 05/30/2017 Assessment & Plan (06/21/2017 4:50 PM PRINT LINE SUPERVISOR): Patient complains of urinary urgency frequency and vague left lower quadrant pain. Pain level is approximately 3/10. She is not sure to urine looks any different smells any different. She feels tired. This is not necessary new symptom. Patient has no acute distress. Plans UA reflex culture and sensitivity, started on doxycycline 100 milligrams twice a day for 10 days. Next 4-5 days. Allergic reaction 03/03/2017 08/26/2023 Abdominal aortic aneurysm (AAA) 03/09/2012 05/06/2019 Overview (08/07/2016): Abdominal aortic aneurysm Vitamin D deficiency 03/09/2012 017 Overview (08/07/2016): Vitamin d deficiency Hypercholesterolemia 02/25/2012 019 Overview (08/09/2016): Hypercholesteremia Encounters Date Type Department Care Team Description 08/30/2024 Telephone [facility] Orthopedics and Sports Medicine 4 [facility] [address] [place] [id number] Humble Marquis MD 08/21/2024 9:21 PM CDT - 08/21/2024 11:59 PM CDT Hospital Encounter [facility] Emergency, Room R Discharge Disposition: Discharge to home or self care 08/21/2024 2:03 PM CDT - 08/21/2024 9:21 PM CDT Emergency [facility] Emergency Department [address] [place] [address] Willie Noe MD Elbow fracture, left, closed, initial encounter (Primary Dx); Head injury, initial encounter; Fall, initial encounter; Inability to access health care due to transportation insecurity Discharge Disposition: Discharge to a short term hospital for IP from Last 3 Months Immunizations Immunization Administration Dates Next Due Influenza, Quadrivalent, Hig h Dose, Preservative Free, Intrr 02/18/2023,02/27/2022,02/12/2021 Influenza, Quadrivalent, Spl it, Preservative Free, Intramuscular 03/10/2020 Influenza, Trivalent, High D ose, Split, Preservative Free, Intramuscular 02/19/2019,04/06/2018,03/03/2017,02/21,02/21/2014,02/23/2013 Influenza, Trivalent, IM (MDV) 02/22/2015,2011,02/23/2008 Moderna Sars-cov-2 Bivalent Vaccine 50 Mcg/0.5 mL (12+ YRS)-Blue/Weiss 04/23/2022,11/28/2021 Pneumococcal Conjugate PCV 13 03/02/2019 Pneumococcal Conjugate Pcv20 09/02/2023 Pneumococcal Polysaccharide PPV23 03/10/2020 RSV Vaccine, Pref, Recombina nt, Subunit, Adjuvanted, PF, IM (Arexvy) 09/02/2023 Tdap 10/26/2013 Surgical History Surgery Date Site/Laterality Comments TUBAL LIGATION Bilateral tubal ligation OTHER SURGICAL HISTORY Multiple eye surgeries Medical History Medical History Date Comments Hypothyroidism hypothyroidism Hyperlipidemia Hyperlipidemia Diabetes mellitus (HCC) Diabetes Hypertension Hypertension Depression Depression Hx Other Medical cornea transpla nt Anxiety Family History Medical History Relation Name Comments Blood Clot Father 2 Blood clot; Cau se of : Blood clot Heart disease Father 2 Cardiovascular disease; Other Father 2 PE; Cause of De ath: PE Other Mother 2 Alive and well; Breast cancer Mother's Sister Cancer, padma ast; Hypertension Other Family history of Hypertension; Lung cancer Sister 2 Cancer, lung; C ause of : Cancer, lung Relation Name Status Comments Father 1 (Age 60) Father 2 Mother 1 Alive Mother 2 Mother's Sister Other Sister 1 Sister 2 Social History Tobacco Use Types Packs/Day Years Used Date Smoking Tobacco: Former Smokeless Tobacco: Never Tobacco Cessation:Counseling Given: Not Answered Comments:Smoking History Packs/day: 1 Packs Alcohol Use Standard Drinks/Week Comments No 0 (1 standard drink = 0.6 oz pur e alcohol) [facility] Utilities Answer Date Recorded In the past 12 months has th e electric, gas, oil, or water company threatened to shut off services in your home? No 01/19/2024 Social Connection and Isolat ion Panel [NHANES] Answer Date Recorded In a typical week, how many times do you talk on the phone with family, friends, or neighbors? More than three times a week 01/19/2024 How often do you get togethe r with friends or relatives? More than three times a week 01/19/2024 How often do you attend chur ch or mu-ism services? Never 01/19/2024 Do you belong to any clubs o r organizations such as bahai groups, unions, fraternal or athletic groups, or school groups? No 01/19/2024 How often do you attend meet ings of the clubs or organizations you belong to? Never 01/19/2024 Are you , , di vorced, , never , or living with a partner? 01/19/2024 AUDIT-C Answer Date Recorded Q1: How often do you have a drink containing alcohol? Never 01/16/2024 Q2: How many drinks containi ng alcohol do you have on a typical day when you are drinking? Patient does not drink Q3: How often do you have si x or more drinks on one occasion? Never 01/16/2024 Overall Financial Resource Strain (CARDIA) Answe r Date Recorded How hard is it for you to pa y for the very basics like food, housing, medical care, and heating? Not hard at all 01/19/2024 PHQ-2 Answer Date Recorded PHQ-2 Total Score (If total score is 3 or more points, staff should administer the PHQ-9) 2 08/25/2023 Hunger Vital Sign Answer Date Recorded Within the past 12 months, y ou worried that your food would run out before you got the money to buy more. Never true 01/19/20 24 Within the past 12 months, t he food you bought just didn't last and you didn't have money to get more. Never true 01/19/2024 PRAPARE - Transportation Answer Date Re corded In the past 12 months, has l ack of transportation kept you from medical appointments or from getting medications? No 01/03 In the past 12 months, has l ack of transportation kept you from meetings, work, or from getting things needed for daily living? No 01/19/2024 Housing Stability Vital Sign Answer Josafat e Recorded In the last 12 months, was t here a time when you were not able to pay the mortgage or rent on time? No 01/19/2024 In the past 12 months, how m any times have you moved where you were living? 0 01/19/2024 At any time in the past 12 m [facility], were you homeless or living in a detention (including now)? No 01/19/2024 Personal Safety Answer Date Recorded Have you ever been in or are you currently in a harmful physical or emotional relationship or is someone making you feel afraid or unsafe? Denies 08/21/2024 Comments No Sex and Gender Information Value Date Recorded Sex Assigned at Not on file Legal Sex Female 7:40 PM PRINT LINE SUPERVISOR Gender Identity Not on file Sexual Orientation Not on file Obstetrics History Last Filed Vital Signs Vital Sign Reading Time Taken Comments Blood Pressure 103/39 08/21/2024 8:45 PM CDT Pulse 61 08/21/2024 8:45 PM CDT Temperature 36.3 C (97.4 F) 08/21/2024 2:06 PM CDT Respiratory Rate 17 08/21/2024 8:45 PM CDT Oxygen Saturation 98% 08/21/2024 8:45 PM CDT Inhaled Oxygen Concentration - - Weight 71.2 kg (157 lb) 08/21/2024 2:06 PM CDT Height 157.5 cm (5' 2 ) 08/21/2024 2:06 PM CDT Body Mass Index 28.72 08/21/2024 2:06 PM CDT Plan of Treatment Health Maintenance Due Date Last Done Comments DTaP/Tdap/Td Vaccine (2 - Td or Tdap) 10/27/2023 10/26/2013 Covid-19 Vaccine (2023-2 5 season) 2024 02/18/2023, 04/23/2022, 11/28/2021, Additional history exists Hemoglobin A1C 02/24/2024 08/25/2023, 04/04, 11/16/2021, Additional history exists Dilated Eye Exam 03/13/2024 03/13/2023, 07/10/2022 Depression Screening 08/24/2024 08/25/2023, 08/20/2022, 08/20/2022, Additional history exists Foot Exam 08/24/2024 08/25/2023, 02/03, 12/04/2017, Additional history exists Well Visit 65+ 08/24/2024 08/25/2023, 08/03, 06/15/2021, Additional history exists Fall Risk Assessment 01/23/2025 01/24/2024, 08/25/2023, 08/20/2022, Additional history exists Albumin Creatinine Ratio, Urine Discontinued 03/02/2019, 10/13/2017, 10/01/2016, Additional history exists Lipid Panel Discontinued 03/10/2020, 03/02/2019 Osteoporosis Screening-Bone Density Scan Discontinued 02/15/2021, 02/22/2016 Pneumococcal vaccine 65+ Completed 024, 03/10/2020, 03/02/2019 Influenza Vaccine Completed 02/10/2024, , 02/27/2022, Additional history exists eGFR Discontinued 08/21/2024, 1105/2023, 01/24/2024, Additional history exists Hepatitis B Screening Discontinued Zoster Vaccine Discontinued Procedures Procedure Name Priority Date/Time Associated Diagnosis Comments CO CRITICAL CARE ILL/INJURED PATIENT INIT 30-74 MIN Routine 08/21/2024 9:21 PM CDT TROPONIN T HIGH-SENSITIVITY 6-HOUR Timed 08/21/2024 8:16 PM CDT INFLUENZA A/B, RSV, AND COVID-19 PCR STAT 08/21/2024 7:03 PM CDT ECG 12-LEAD Routine 08/21/2024 6:48 PM CDT TROPONIN T HIGH-SENSITIVITY 4-HR Timed 08/21/2024 6:42 PM CDT TROPONIN T HIGH-SENSITIVITY 2-HOUR Timed 08/21/2024 4:[address] CHEST ABDOMEN PELVIS WO CONTRAST ED 08/21/2024 4:[address] HEAD WO CONTRAST ED 08/21/2024 4 :02 PM CDT ECG 12-LEAD Routine 08/21/2024 2:44 PM CDT XR ELBOW LEFT 2 OR MORE VIEWS ED 08/21/2024 2:42 PM CDT XR HUMERUS LEFT 2 OR MORE VIEWS ED 08/21/2024 2:42 PM CDT XR CHEST 1 VIEW ED 08/21/2024 2:42 PM CDT EGFR STAT 08/21/2024 2:31 PM CDT DIFFERENTIAL AUTO STAT 08/21/2024 2:3 1 PM CDT TROPONIN T HIGH-SENSITIVITY SERIES (BASELINE, 2HR, 4HR, 6HR) STAT 08/21/2024 2:31 PM CDT PRO B-TYPE NATRIURETIC PEPTIDE STAT 08/21/2024 2:31 PM CDT CREATINE KINASE (CK), TOTAL STAT 08/21/2024 2:31 PM CDT PROTIME-INR STAT 08/21/2024 2:31 PM CDT COMPREHENSIVE METABOLIC PANEL STAT 08/21/2024 2:31 PM CDT CBC WITH AUTO DIFFERENTIAL STAT 08/21/2024 2:31 PM CDT HEMOGLOBIN A1C Routine 08/25/2023 2:54 PM CDT Type 2 diabetes mellitus with hyperosmolarity without coma, without long-term current use of insulin (HCC) DEXA AXIAL SKELETON BONE DENSITY 1 OR MORE SITES Schedule Routine, Read Routine (OP Routine) 02/15/2021 10:53 AM CDT Menopause LIPID PANEL Routine 03/10/2020 1:58 PM PRINT LINE SUPERVISOR Type 2 diabetes mellitus with hyperosmolarity without coma, without long-term current use of insulin (HCC) ALBUMIN CREATININE RATIO, URINE Routine 03/02/2019 2:52 PM CDT Type 2 diabetes mellitus with hyperosmolarity without coma, without long-term current use of insulin (HCC) from Last 3 Months or Most Recently Relevant to Health Maintenance Results * CO CRITICAL CARE ILL/INJURED PATIENT INIT 30-74 MIN (08/21/2024 9:21 PM CDT) Narrative Willie Noe MD - 08/21/2024 9:21 PM CDT Willie Noe MD 08/21/2024 10:02 PM Critical Care Performed by: Willie Noe MD Authorized by: Willie Noe MD Critical care provider statement: As reflected in the history, physical exam, orders, notes, and/or MDM, I was personally present while the patient was critically ill and provided critical care services for 35 minutes, excluding time involved in separately billable procedures. Critical care was necessary to treat or prevent imminent or life-threatening deterioration of the following condition(s): atrial fibrillation level 1 trauma Critical care was time spent by me providing the following: continuous telemetry, continuous pulse oximetry, serial bedside patient exams and resuscitation with fluids supplemental oxygen I provided emergent necessary critical care medicine services to this patient. I ordered and reviewed test results and/or imaging studies. I spent time discussing the management of this critically ill patient with consultants and the medical staff. I spent time discussing the management and therapeutic options for this critically ill patient with the patient themselves or with the appropriate designated surrogate decision-maker. I spent time documenting in the medical record. I admitted this patient to a continuous cardiac monitored bed. us Willie Noe MD IN CLINIC/BEDSIDE ORDERABLE S Final Result * (ABNORMAL) Troponin T high-sensitivity 6-hour (08/21/2024 8:16 PM CDT) Trop T hs 38(H) <=14 ng/L Comment: Interpretive Data For further hscTnT resources including the diagnostic algorithm and an aid in interpretation, copy and paste this link: https://nrl.testcatalog.org/show/hsTrop Current Interpretive Data last revised 2020. Trop T hs delta 8 ng/L [facility] ([facility]AT) Trop T hs interp Equivocal [facility]ER [facility] ([facility]) Blood 08/21/2024 8:16 PM CDT 08/21/2024 8:19 PM CDT Willie Noe MD LAB BLOOD ORDERABLES Final Result [facility] [place] [address] * Influenza A/B, RSV, and COVID-19 PCR Nasopharyngeal (08/21/2024 7:03 PM CDT) Pathologist [facility] COVID-19 RNA Negative Negative Influenza A RNA Negative Negative [facility] ([facility]) Influenza B RNA Negative Negative [facility] ([facility]) RSV RNA Negative Negative [facility] ([facility]ERVAT) Comment: Interpretive data: Testing performed by [facility]. This test is performed using the [employer] Xpert Xpress CoV-2/Flu/RSV plus assay. This is a multiplex, real- time reverse transcriptase PCR assay intended for the qualitative detection of nucleic acid from SARS-CoV-2, influenza A, influenza B, and respiratory syncytial virus. This assay has been cleared by the [place] Food and Drug administration. The performance characteristics have been verified by the [facility]. Results must be considered in the clinical context, and a negative result does not rule out infection. Interpretive Data last revised 2023 Nasopharyngeal 08/21/2024 7: 03 PM CDT 08/21/2024 7:06 PM CDT Narrative [facility] ([facility]) - 08/21/2024 7:56 PM CDT Is the Patient experiencing symptoms consistent with COVID?->Yes Willie Noe MD LAB MICROBIOLOGY - GENERAL ORDERABLES Final Result Performing Organization Address [facility] de Phone Number [facility] ([facility]) 1 [facility] Department [place] [address] * ECG 12 lead (08/21/2024 6:48 PM CDT) 08/21/2024 6:48 PM CDT Narrative [facility] - 08/23/2024 7:01 AM CDT Vent Rate: 63 bpm RR Interval: 940 msec CO Interval: 164 msec QRS Duration: 77 msec QT Interval: 325 msec QTC Interval: 333 msec P-R-T Alexander: 131 - 174 - 108 degrees IMPRESSION: SINUS RHYTHM ARM LEADS REVERSED [INVERTED P AND QRS IN I] NORMAL ECG NO CHANGE FROM PREVIOUS TRACING NOTED Electronically Signed By: Carlos Alberto Avery MD Willie Noe MD ECG ORDERABLES Final Resul t Performing Organization Address [facility] Phone Number tydy [facility] * (ABNORMAL) Troponin T high-sensitivity 4-hour (08/21/2024 6:42 PM CDT) Trop T hs 35(H) <=14 ng/L Comment: Interpretive Data For further hscTnT resources including the diagnostic algorithm and an aid in interpretation, copy and paste this link: [email or web address].testcatalog.org/show/hsTrop Current Interpretive Data last revised 2020. Trop T hs delta 5 ng/L [facility] ([facility]) Trop T hs interp Equivocal CER [facility] ([facility]) Blood 08/21/2024 6:42 PM CDT 08/21/2024 6:59 PM CDT Willie Noe MD LAB BLOOD ORDERABLES Final Result Performing Organization Address [facility]/ZIP Co de Phone Number [facility] ([facility]) 1 [facility] [place] [address] * (ABNORMAL) Troponin T high-sensitivity 2-hour (08/21/2024 4:50 PM CDT) Trop T hs 30(H) <=14 ng/L Comment: Interpretive Data For further hscTnT resources including the diagnostic algorithm and an aid in interpretation, copy and paste this link: https://nrl.testcatalog.org/show/hsTrop Current Interpretive Data last revised 2020. Trop T hs delta 0 ng/L [facility] ([place]) Trop T hs interp Insignificant [facility] ([place]) Blood 08/21/2024 4:50 PM CDT 08/21/2024 4:55 PM CDT Willie Noe MD LAB BLOOD ORDERABLES Final Result Performing Organization Address [facility] de Phone Number [facility] ([place]) 1 [facility] [place] [address] * CT Chest Abdomen Pelvis WO Contrast (08/21/2024 4:02 PM CDT) Anatomical Region Laterality Modality Body N/A Computed Tomogra phy 08/21/2024 4:52 PM CDT Narrative 08/21/2024 5:00 PM CDT EXAM DESCRIPTION: CT CHEST ABDOMEN PELVIS WO CONTRAST REASON FOR STUDY: Polytrauma, blunt Pt states she fell out of bed sometime lastnight, hitting her L side of her face on a nightstand. Denies LOC, denies neckpain. Obvious swelling and deformaty to L elbow, lac noted to left eye, dry blood noted with bruising around eye. Pt Ax03 at time of arrival. TECHNIQUE: CT scan of the chest, abdomen, and pelvis performed without intravenous and without oral contrast using helical scanning technique. Reconstructed coronal and sagittal MPR images reviewed. All images stored on PACS. Automated exposure control was used as a dose optimization technique for this examination. COMPARISON: CT abdomen and pelvis 01/16/2024 FINDINGS: The sensitivity for detection of visceral lesions is diminished without the use of intravenous contrast. CHEST LUNGS: No nodules or masses. No pneumonia. PLEURA: No effusion. No pneumothorax. MEDIASTINUM/ABDULLAHI: No identified masses or abnormal nodes. HEART: Heart size is normal with no pericardial effusion. CORONARY ARTERY CALCIFICATION: Severe. VASCULATURE CHEST: No thoracic aortic aneurysm. AXILLA: No adenopathy. CHEST WALL: No masses. No subcutaneous air. HARDWARE/LINES/TUBES: None. MUSCULOSKELETAL CHEST: No significant abnormality. ABDOMEN/PELVIS LIVER: Normal size. No suspicious hepatic lesions. Numerous calcified granulomas. GALLBLADDER: No stones identified. No wall thickening or inflammatory changes. BILE DUCTS: No intrahepatic or extrahepatic ductal dilatation. SPLEEN: Normal size. No suspicious lesion. Numerous splenic granulomas. PANCREAS: No identified cystic or solid masses. No significant calcifications. No adjacent inflammation or peripancreatic fluid collections. Pancreatic duct not dilated. ADRENALS: Normal. KIDNEYS/URINARY TRACT: No suspicious renal lesion. Stable right renal cyst. No stones. No hydronephrosis or hydroureter. Urinary bladder is decompressed with a Ewing catheter in place. GI: No dilated bowel loops. No obvious wall thickening. Normal appendix. Colonic diverticulosis. PERITONEUM: No ascites or free air. RETROPERITONEUM: No mass or adenopathy. REPRODUCTIVE: No significant abnormality. VASCULATURE ABDOMEN: No abdominal aortic aneurysm. MUSCULOSKELETAL ABDOMEN PELVIS: No acute finding. OTHER: No significant abnormality. IMPRESSION: No acute findings of the chest, abdomen, or pelvis. THIS IS AN ELECTRONICALLY VERIFIED FINAL REPORT 08/21/2024 5:00 PM - Electronically signed by German Sotelo M.D. KR: HIEN Report ID: [id number] Reading Location: [id number] Procedure Note German Sotelo MD - 08/21/2024 EXAM DESCRIPTION: CT CHEST ABDOMEN PELVIS WO CONTRAST REASON FOR STUDY: Polytrauma, blunt Pt states she fell out of bed sometime lastnight, hitting her L side ofher face on a nightstand. Denies LOC, denies neckpain. Obvious swelling and deformaty to L elbow, lac noted to left eye, dry blood noted with bruising around eye. Pt Ax03 at time of arrival. TECHNIQUE: CT scan of the chest, abdomen, and pelvis performed without intravenous and without oral contrast using helical scanning technique. Reconstructed coronal and sagittal MPR images reviewed. All images storedon PACS. Automated exposure control was used as a dose optimizationtechnique for this examination. COMPARISON: CT abdomen and pelvis 01/16/2024 FINDINGS: The sensitivity for detection of visceral lesions is diminished withoutthe use of intravenous contrast. CHEST LUNGS: No nodules or masses. No pneumonia. PLEURA: No effusion. No pneumothorax. MEDIASTINUM/ABDULLAHI: No identified masses or abnormal nodes. HEART: Heart size is normal with no pericardial effusion. CORONARY ARTERY CALCIFICATION: Severe. VASCULATURE CHEST: No thoracic aortic aneurysm. AXILLA: No adenopathy. CHEST WALL: No masses. No subcutaneous air. HARDWARE/LINES/TUBES: None. MUSCULOSKELETAL CHEST: No significant abnormality. ABDOMEN/PELVIS LIVER: Normal size. No suspicious hepatic lesions. Numerous calcified granulomas. GALLBLADDER: No stones identified. No wall thickening or inflammatory changes. BILE DUCTS: No intrahepatic or extrahepatic ductal dilatation. SPLEEN: Normal size. No suspicious lesion. Numerous splenicgranulomas. PANCREAS: No identified cystic or solid masses. No significant calcifications. No adjacent inflammation or peripancreatic fluidcollections. Pancreatic duct not dilated. ADRENALS: Normal. KIDNEYS/URINARY TRACT: No suspicious renal lesion. Stable right renalcyst. No stones. No hydronephrosis or hydroureter. Urinary bladder is decompressed with a Ewing catheter in place. GI: No dilated bowel loops. No obvious wall thickening. Normalappendix. Colonic diverticulosis. PERITONEUM: No ascites or free air. RETROPERITONEUM: No mass or adenopathy. REPRODUCTIVE: No significant abnormality. VASCULATURE ABDOMEN: No abdominal aortic aneurysm. MUSCULOSKELETAL ABDOMEN PELVIS: No acute finding. OTHER: No significant abnormality. IMPRESSION: No acute findings of the chest, abdomen, or pelvis. THIS IS AN ELECTRONICALLY VERIFIED FINAL REPORT 08/21/2024 5:00 PM - Electronically signed by German Sotelo M.D. KR: HIEN Report ID: [id number] Reading Location: [place] [address] Willie Noe MD IMG CT PROCEDURES Final Res ult * CT Head WO Contrast (08/21/2024 4:02 PM CDT) Anatomical Region Laterality Modality Head and Neck N/A Computed Tomogra phy 08/21/2024 4:48 PM CDT Narrative 08/21/2024 4:52 PM CDT EXAM DESCRIPTION: CT HEAD WO CONTRAST REASON FOR STUDY: Headache, no red flags Pt states she fell out of bed sometime lastnight, hitting her L side of her face on a nightstand. Denies LOC, denies neckpain. Obvious swelling and deformaty to L elbow, lac noted to left eye, dry blood noted with bruising around eye. Pt Ax03 at time of arrival. TECHNIQUE: Axial images acquired through the brain without intravenous contrast. Images stored on PACS. Automated exposure control was used as a dose optimization technique for this examination. COMPARISON: None FINDINGS: BRAIN: No hemorrhage, edema or mass effect. No recent infarct. Nonspecific periventricular white matter hypoattenuation, most consistent with chronic microvascular ischemic changes. EXTRA-AXIAL SPACES: No fluid collections. No masses. CALVARIUM: No fracture. SINUSES/MASTOIDS: No fluid or mucosal thickening. ORBITS: No significant abnormality. OTHER: No other significant abnormality. IMPRESSION: No acute intracranial findings. THIS IS AN ELECTRONICALLY VERIFIED FINAL REPORT 08/21/2024 4:52 PM - Electronically signed by German Sotelo M.D. KR: HIEN Report ID: [id number] Reading Location: [id number] Procedure Note German Sotelo MD - 08/21/2024 EXAM DESCRIPTION: CT HEAD WO CONTRAST REASON FOR STUDY: Headache, no red flags Pt states she fell out of bed sometime lastnight, hitting her L side ofher face on a nightstand. Denies LOC, denies neckpain. Obvious swelling and deformaty to L elbow, lac noted to left eye, dry blood noted with bruising around eye. Pt Ax03 at time of arrival. TECHNIQUE: Axial images acquired through the brain without intravenous contrast. Images stored on PACS. Automated exposure control was used asa dose optimization technique for this examination. COMPARISON: None FINDINGS: BRAIN: No hemorrhage, edema or mass effect. No recent infarct. Nonspecific periventricular white matter hypoattenuation, most consistentwith chronic microvascular ischemic changes. EXTRA-AXIAL SPACES: No fluid collections. No masses. CALVARIUM: No fracture. SINUSES/MASTOIDS: No fluid or mucosal thickening. ORBITS: No significant abnormality. OTHER: No other significant abnormality. IMPRESSION: No acute intracranial findings. THIS IS AN ELECTRONICALLY VERIFIED FINAL REPORT 08/21/2024 4:52 PM - Electronically signed by German Sotelo M.D. KR: HIEN Report ID: [id number] Reading Location: [place] [address] Willie Noe MD IMG [address] PROCEDURES Final Res ult * ECG 12 lead (08/21/2024 2:44 PM CDT) 08/21/2024 2:44 PM CDT Narrative [facility] - 08/23/2024 7:01 AM CDT Vent Rate: 74 bpm RR Interval: 803 msec CO Interval: 0 msec QRS Duration: 81 msec QT Interval: 318 msec QTC Interval: 346 msec P-R-T Alexander: 50311 - 29 - 52 degrees IMPRESSION: Baseline artifact, probable sinus rhythm with first-degree AV block LOW QRS VOLTAGE IN PRECORDIAL LEADS [QRS DEFLECTION < 1.0 mV IN CHEST LEADS] NONSPECIFIC ST \T\ T-WAVE ABNORMALITY Recommend repeat EKG with stable baseline for accurate rhythm assessment Electronically Signed By: Carlos Alberto Avery MD Willie Noe MD ECG ORDERABLES Final Resul t [facility] [employer] [facility] * XR Chest 1 Vw Portable (08/21/2024 2:42 PM CDT) Anatomical Region Laterality Modality Body, Chest N/A Computed Radiogr aphy 08/21/2024 3:09 PM CDT Narrative 08/21/2024 3:10 PM CDT EXAM DESCRIPTION: XR CHEST 1 VIEW REASON FOR STUDY: Shortness of breath Pt. arrives by EMS from home for complaints of a fall. Pt states she fell out of bed sometime lastnight, hitting her L side of her face on a nightstand. Denies LOC, denies neckpain. Obvious swelling and deformaty to L elbow, lac noted to left eye, dry blood noted with bruising around eye. Pt Ax03 at time of arrival. TECHNIQUE: 1 radiographic view(s) of the chest. COMPARISON: 08/25/2023. 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 No consolidative opacity is seen. No pulmonary edema identified. Left lung base calcified granulomas noted. No pleural effusion or pneumothorax is seen HEART/MEDIASTINUM: Heart size and cardiomediastinal contours are normal in unchanged. Aortic atherosclerosis is present. LINES/TUBES: None. BONES: No acute displaced fracture or aggressive bone lesion is identified grossly. IMPRESSION: No acute cardiopulmonary findings. THIS IS AN ELECTRONICALLY VERIFIED FINAL REPORT 08/21/2024 3:10 PM - Electronically signed by Erik Poon M.D. MZ: MZ Report ID: [id number] Reading Location: [place] [address] Procedure Note Erik Poon MD - 08/21/2024 EXAM DESCRIPTION: XR CHEST 1 VIEW REASON FOR STUDY: Shortness of breath Pt. arrives by EMS from home for complaints of a fall. Pt states she fellout of bed sometime lastnight, hitting her L side of her face on a nightstand. Denies LOC, denies neckpain. Obvious swelling and deformaty to L elbow,lac noted to left eye, dry blood noted with bruising around eye. Pt Ax03 attime of arrival. TECHNIQUE: 1 radiographic view(s) of the chest. COMPARISON: 08/25/2023. 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 No consolidative opacity is seen. No pulmonary edema identified. Left lungbase calcified granulomas noted. No pleural effusion or pneumothorax is seen HEART/MEDIASTINUM: Heart size and cardiomediastinal contours are normalin unchanged. Aortic atherosclerosis is present. LINES/TUBES: None. BONES: No acute displaced fracture or aggressive bone lesion isidentified grossly. IMPRESSION: No acute cardiopulmonary findings. THIS IS AN ELECTRONICALLY VERIFIED FINAL REPORT 08/21/2024 3:10 PM - Electronically signed by Erik Poon M.D. MZ: MZ Report ID: [id number] Reading Location: [place] [address] us Willie Noe MD IMG XR PROCEDURES Final Res ult * XR Elbow Left 2 Views (08/21/2024 2:42 PM CDT) Anatomical Region Laterality Modality Upper Extremities, Elbow Left Compute d Radiography 08/21/2024 3:03 PM CDT Narrative 08/21/2024 3:08 PM CDT EXAM DESCRIPTION: XR ELBOW LEFT 2 VIEWS; XR HUMERUS LEFT 2 OR MORE VIEWS REASON FOR STUDY: accidental fall Pt. arrives by EMS from home for complaints of a fall. Pt states she fell out of bed sometime lastnight, hitting her L side of her face on a nightstand. Denies LOC, denies neckpain. Obvious swelling and deformaty to L elbow, lac noted to left eye, dry blood noted with bruising around eye. Pt Ax03 at time of arrival. TECHNIQUE: Two views of the left humerus and two views of the left elbow submitted for interpretation. COMPARISON: None available FINDINGS: The humeral head projects over the glenoid. 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 There is a comminuted intra-articular fracture of the left olecranon with 13 mm of proximal displacement of the proximal fracture fragment on the lateral view. There is a large joint effusion. There is associated soft tissue swelling. There are multiple calcific densities in the posterior soft tissues of the forearm. Radiocapitellar alignment appears preserved IMPRESSION: Comminuted, displaced intra-articular left olecranon fracture. Large left elbow joint effusion. THIS IS AN ELECTRONICALLY VERIFIED FINAL REPORT 08/21/2024 3:08 PM - Electronically signed by Erik Poon M.D. MZ: MZ Report ID: [id number] Reading Location: [place] [address] Procedure Note Erik Poon MD - 08/21/2024 EXAM DESCRIPTION: XR ELBOW LEFT 2 VIEWS; XR HUMERUS LEFT 2 OR MORE VIEWS REASON FOR STUDY: accidental fall Pt. arrives by EMS from home for complaints of a fall. Pt states she fellout of bed sometime lastnight, hitting her L side of her face on a nightstand. Denies LOC, denies neckpain. Obvious swelling and deformaty to L elbow,lac noted to left eye, dry blood noted with bruising around eye. Pt Ax03 attime of arrival. TECHNIQUE: Two views of the left humerus and two views of the left elbow submitted for interpretation. COMPARISON: None available FINDINGS: The humeral head projects over the glenoid. 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 There is a comminuted intra-articular fracture of the left olecranonwith 13 mm of proximal displacement of the proximal fracture fragment on the lateral view. There is a large joint effusion. There is associated soft tissue swelling. There are multiple calcific densities in the posteriorsoft tissues of the forearm. Radiocapitellar alignment appears preserved IMPRESSION: Comminuted, displaced intra-articular left olecranon fracture. Large left elbow joint effusion. THIS IS AN ELECTRONICALLY VERIFIED FINAL REPORT 08/21/2024 3:08 PM - Electronically signed by Erik Poon M.D. MZ: MZ Report ID: [id number] Reading Location: [place] [address] us Willie Noe MD IMG XR PROCEDURES Final Res ult * XR Humerus Left 2 or More Views (08/21/2024 2:42 PM CDT) Anatomical Region Laterality Modality Upper Extremities, Upper Arm Left Com puted Radiography 08/21/2024 3:03 PM CDT Narrative 08/21/2024 3:08 PM CDT EXAM DESCRIPTION: XR ELBOW LEFT 2 VIEWS; XR HUMERUS LEFT 2 OR MORE VIEWS REASON FOR STUDY: accidental fall Pt. arrives by EMS from home for complaints of a fall. Pt states she fell out of bed sometime lastnight, hitting her L side of her face on a nightstand. Denies LOC, denies neckpain. Obvious swelling and deformaty to L elbow, lac noted to left eye, dry blood noted with bruising around eye. Pt Ax03 at time of arrival. TECHNIQUE: Two views of the left humerus and two views of the left elbow submitted for interpretation. COMPARISON: None available FINDINGS: The humeral head projects over the glenoid. 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 There is a comminuted intra-articular fracture of the left olecranon with 13 mm of proximal displacement of the proximal fracture fragment on the lateral view. There is a large joint effusion. There is associated soft tissue swelling. There are multiple calcific densities in the posterior soft tissues of the forearm. Radiocapitellar alignment appears preserved IMPRESSION: Comminuted, displaced intra-articular left olecranon fracture. Large left elbow joint effusion. THIS IS AN ELECTRONICALLY VERIFIED FINAL REPORT 08/21/2024 3:08 PM - Electronically signed by Erik Poon M.D. MZ: RUEL Report ID: [id number] Reading Location: [id number] Procedure Note Erik Poon MD - 08/21/2024 EXAM DESCRIPTION: XR ELBOW LEFT 2 VIEWS; XR HUMERUS LEFT 2 OR MORE VIEWS REASON FOR STUDY: accidental fall Pt. arrives by EMS from home for complaints of a fall. Pt states she fellout of bed sometime lastnight, hitting her L side of her face on a nightstand. Denies LOC, denies neckpain. Obvious swelling and deformaty to L elbow,lac noted to left eye, dry blood noted with bruising around eye. Pt Ax03 attime of arrival. TECHNIQUE: Two views of the left humerus and two views of the left elbow submitted for interpretation. COMPARISON: None available FINDINGS: The humeral head projects over the glenoid. 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 There is a comminuted intra-articular fracture of the left olecranonwith 13 mm of proximal displacement of the proximal fracture fragment on the lateral view. There is a large joint effusion. There is associated soft tissue swelling. There are multiple calcific densities in the posteriorsoft tissues of the forearm. Radiocapitellar alignment appears preserved IMPRESSION: Comminuted, displaced intra-articular left olecranon fracture. Large left elbow joint effusion. THIS IS AN ELECTRONICALLY VERIFIED FINAL REPORT 08/21/2024 3:08 PM - Electronically signed by Erik Poon M.D. MZ: RUEL Report ID: [id number] Reading Location: [place] [address] Willie Noe MD IMG XR PROCEDURES Final Res ult * (ABNORMAL) Troponin T high-sensitivity series (baseline, 2hr, 4hr, 6hr) (08/21/2024 2:31 PM CDT) Trop T hs 30(H) <=14 ng/L Comment: Interpretive Data For further hscTnT resources including the diagnostic algorithm and an aid in interpretation, copy and paste this link: https://nrl.testcatalog.org/show/hsTrop Current Interpretive Data last revised 2020. Blood 08/21/2024 2:31 PM CDT 08/21/2024 2:35 PM CDT Willie Noe MD LAB BLOOD ORDERABLES Final Result [facility] [place]) 1 [facility] [place] [address] [phone] * (ABNORMAL) eGFR (08/21/2024 2:31 PM CDT) Pathologist [facility] eGFR 38(L) >=60 mL/min/1. 73 m2 Comment: Interpretive Data Reference Interval Normal >/= 90 mL/min/1.73m2 Mildly decreased* 60 - 89 mL/min/1.73m2 Mildly to moderately decreased 45 - 59 mL/min/1.73m2 Moderately to severely decreased 30 - 44 mL/min/1.73m2 Severely decreased 15 - 29 mL/min/1.73m2 Kidney Failure < 15 mL/min/1.73m2 *Relative to young adult level Estimated glomerular filtration rate is determined by the 2020 CKD-EPI equation recommended by the [employer] (A Unifying Approach to GFR Estimation: Recommendations of the NKF-ASK Task Force on Reassessing the Inclusion of Race in Diagnosing Kidney Disease, JASN 2020). The CKD-EPI equation should not be used for patients with unstable renal function and has not been validated in children and those over 70. Current interpretive data was last reviewed 2021. Blood 08/21/2024 2:31 PM CDT 08/21/2024 2:35 PM CDT Willie Noe MD LAB BLOOD ORDERABLES Final Result [facility] ([place]) 1 [facility] [place] [address] * (ABNORMAL) Differential, auto (08/21/2024 2:31 PM CDT) Neutrophil abs 12.78(H) 1.50 - 6.50 K/cumm Imm gran abs 0.06 0.00 - 0.10 K/cumm [facility] ([place]) Lymphocyte abs 1.03 0.80 - 3.30 K/cumm [facility] ([place]) Monocyte abs 0.86(H) 0.20 - 0.80 K/cumm [facility] ([place]) Eosinophil abs 0.02 0.00 - 0.50 K/cumm [facility] ([place]) Basophil abs 0.06 0.00 - 0.10 K/cumm [facility] ([place]) Neutrophil pct 86.3 % [facility] ([place]) Comment: Interpretive Data Percent cell count reference ranges are not reported, since discordance with absolute values may lead to misinterpretation of CBC data. Current Interpretive Data was last revised on 2017. Imm gran pct 0.4 % [facility] ([place]) Comment: Interpretive Data Percent cell count reference ranges are not reported, since discordance with absolute values may lead to misinterpretation of CBC data. Current Interpretive Data was last revised on 2017. Lymphocyte pct 7.0 % [facility] ([place]) Comment: Interpretive Data Percent cell count reference ranges are not reported, since discordance with absolute values may lead to misinterpretation of CBC data. Current Interpretive Data was last revised on 2017. Monocyte pct 5.8 % [facility] ([place]) Comment: Interpretive Data Percent cell count reference ranges are not reported, since discordance with absolute values may lead to misinterpretation of CBC data. Current Interpretive Data was last revised on 2017. Eosinophil pct 0.1 % [facility] ([place]) Comment: Interpretive Data Percent cell count reference ranges are not reported, since discordance with absolute values may lead to misinterpretation of CBC data. Current Interpretive Data was last revised on 2017. Basophil pct 0.4 % [facility] ([place]) Comment: Interpretive Data Percent cell count reference ranges are not reported, since discordance with absolute values may lead to misinterpretation of CBC data. Current Interpretive Data was last revised on 2017. Blood 08/21/2024 2:31 PM CDT 08/21/2024 2:34 PM CDT us Willie Noe MD LAB BLOOD ORDERABLES Final Result [facility] ([place]) 1 [facility] [place] [address] * (ABNORMAL) Pro B-type natriuretic peptide (08/21/2024 2:31 PM CDT) NT-proBNP 596(H) <=450 pg/mL Comment: Interpretive Comments: A. Dyspnea in Acute Care Setting All Ages: < 300 pg/ml, acute heart failure unlikely. < 50 yrs: 300 - 450 pg/ml, further investigation warranted. > 450 pg/ml, acute heart failure likely. 50 - 74 yrs: 300 - 900 pg/ml, further investigation warranted. > 900 pg/ml, acute heart failure likely . > or = 75 yrs: 450 - 1800 pg/ml, further investigation warranted. > 1800 pg/ml, acute heart failure likely. B. Non-acute Setting < 75 yrs < 125 pg/ml, rules out heart failure. > or = 125 pg/ml, further investigation warranted. > or = 75 yrs < 450 pg/ml, rules out heart failure. > or = 450 pg/ml, further investigation warranted. - Knowledge of each individual patient's NT-proBNP range may be more useful than using similar cut-points for every patient. Please note that marked elevations in NT-proBNP levels may be observed in state other than Left Ventricular Congestive Failure, including: acute coronary syndromes, right heart strain/failure (including pulmonary embolism and cor pulmonale), critical illness, renal failure, as well as advanced age. - References: 1. Molly JL et.al. Eur Heart J. 2006:27:330-337. 2. Gage RW, Leny RICE. J. AM Cris Cardiol: Cardiovasc Imag. 2009;2: 216- 225. Interpretive Data Last Revised Date: 2017. Blood 08/21/2024 2:31 PM CDT 08/21/2024 5:50 PM CDT us Willie Noe MD LAB BLOOD ORDERABLES Final Result [facility] ([place]) 1 [facility] [place] [address] * (ABNORMAL) CBC with auto differential (08/21/2024 2:31 PM CDT) Pathologist [facility] WBC 14.81(H) 3.80 - 9.90 K/cumm Hgb 13.2 11.9 - 15.5 g/dL [facility] ([place]) Hct 39.8 35.6 - 45.5 % [facility] ([place]) Plt 271 150 - 400 K/cumm [facility] ([place]) MPV 9.2 9.1 - 12.3 fL [facility] ([place]) RBC 4.42 3.90 - 5.20 M/cumm [facility] ([place]) MCV 90.0 81.3 - 96.4 fL [facility] ([place]) MCH 29.9 27.1 - 33.3 pg [facility] ([place]) MCHC 33.2 32.3 - 35.7 g/dL [facility] ([place]) RDW CV 12.4 11.1 - 14.9 % [facility] ([place]) RDW SD 41.4 35.7 - 48.1 fL [facility] ([place]) NRBC abs 0.00 0.00 - 0.01 K/cumm [facility] ([place]) Blood 08/21/2024 2:31 PM CDT 08/21/2024 2:34 PM CDT Willie Noe MD LAB BLOOD ORDERABLES Final Result [facility] ([place]) 1 [facility] Department of Laboratories [place], [place] [id number] * Protime-INR (08/21/2024 2:31 PM CDT) PT 12.0 9.7 - 13.0 sec [facility] ([place]) INR 1.11 0.90 - 1.20 [facility] ([place]) Comment: Interpretive data Oral anticoagulant therapeutic ranges: Venous thromboembolism prophylaxis or treatment: 2.0-3.0 CARDIOLOGY Standard range: 2.0-3.0 High-intensity range: 2.5-3.5 Refer to indication-specific guidelines for appropriate target ranges for prosthetic heart valve replacement. Current interpretive data was last revised on 2019. Blood 08/21/2024 2:31 PM CDT 08/21/2024 2:35 PM CDT Willie Noe MD LAB BLOOD ORDERABLES Final Result [facility] ([place]) 1 [facility] [place] [address] * (ABNORMAL) Creatine kinase (CK), total (08/21/2024 2:31 PM CDT) Pathologist [facility] CK 1,102(H) 30 - 200 Units/L Blood 08/21/2024 2:31 PM CDT 08/21/2024 2:35 PM CDT Willie Noe MD LAB BLOOD ORDERABLES Final Result Performing Organization Address City/[facility]/ZIP Co de Phone Number [facility] ([place]) 1 [place] [address] * (ABNORMAL) Comprehensive metabolic panel (08/21/2024 2:31 PM CDT) [facility] Sodium 137 135 - 145 mmol/L Potassium, pl 3.6 3.3 - 4.9 mmol/L [facility] ([place]) Chloride 98 97 - 110 mmol/L [facility] ([place]) CO2 26 22 - 32 mmol/L [facility] ([place]) Anion gap 13 2 - 15 mmol/L [facility] ([place]) BUN 14 6 - 25 mg/dL [facility] ([place]) Creatinine 1.34(H) 0.60 - 1.10 mg/dL [facility] ([place] Glucose 157 70 - 199 mg/dL [facility] ([place]) Comment: Interpretive Data Fasting glucose >/= 126 mg/dl is diagnostic for diabetes. Fasting is defined as no caloric intake for at least 8 hours. Fasting glucose between 100 mg/dl to 125 mg/dl is diagnostic of prediabetes. In a patient with classic symptoms of hyperglycemia or hyperglycemic crisis, a random glucose >/= 200 mg/dl is diagnostic for diabetes. In the absence of unequivocal hyperglycemia, results should be confirmed by repeat testing. The classification and Diagnosis of Diabetes Diabetes Care 2021; 46: S19-S40. Current interpretive data was last revised 2022. Calcium 8.9 8.5 - 10.3 mg/dL [facility] ([place]) Bilirubin, total 1.0 0.1 - 1.2 mg/dL [facility] ([place] Protein, pl 6.5 6.5 - 8.5 g/dL [facility] ([place]) Albumin 3.5 3.5 - 5.0 g/dL [facility] ([place]) Alk phos 83 40 - 130 Units/L [facility] ([place]) ALT 18 7 - 45 Units/L [facility] ([place]) AST 41 10 - 45 Units/L [facility] ([place]) Comment:Slightly Hemolyzed S pecimen Blood 08/21/2024 2:31 PM CDT 08/21/2024 2:35 PM CDT us Willie Noe MD LAB BLOOD ORDERABLES Final Result Performing Organization Address City/[facility]/ZIP Co de Phone Number [facility] ([place]) [address] [place] [address] Department [place] [address] * (ABNORMAL) Hemoglobin A1c (08/25/2023 2:54 PM CDT) Hgb A1C 6.5(H) 4.0 - 5.6 % Comment:Testing performed by : [address] [place] [address] Estimated Average Glucose 140 mg/dL [facility] Comment: The ADA recommends reporting an estimated Average Glucose (eAG) with all Hemoglobin A1c results using the equation derived from a study of 507 normal and diabetic adults. Minority populations were underrepresented and children were not included. (Diabetes Care 31:1498-6262, 2008). The eAG is not equivalent to a fasting glucose. Testing performed by: [facility], [address] [place] [address], [place]., [address] Blood 08/25/2023 2:54 PM CDT 08/25/2023 5:36 PM CDT us Quincy Butt MD LAB BLOOD ORDERABLES Final Result Performing Organization Address City/[facility]/ZIP Co de Phone Number [facility] [id number] [place] [address] Department [place] [address] * Dexa Axial Skeleton Bone Density 1 or 2 Site (02/15/2021 10:53 AM CDT) Anatomical Region Laterality Modality Body N/A Other 02/15/2021 12:5 0 PM CDT Narrative 02/15/2021 12:52 PM CDT EXAM DESCRIPTION: DEXA AXIAL SKELETON BONE DENSITY 1 OR MORE SITES REASON FOR STUDY: 86 year old female with given history of osteoarthritis, postmenopausal state. 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 FINDINGS: AP LUMBAR SPINE L1-L4: Total BMD is 1.317 g/cm2 T-score is 2.5 LEFT HIP: Total BMD is 0.948 g/cm2 T-score is 0.0 Femoral neck BMD is 0.668 g/cm2 T-score is -1.6 IMPRESSION: Low bone mass (based on left femoral neck BMD). Fracture risk assessment (FRAX): 10 year risk for a major osteoporotic fracture is 14 % 10 year risk for a hip fracture is 3.8 % The FRAX tool has not been validated in patients currently or previously treated with pharmacotherapy for osteoporosis. In such patients, clinical judgement must be exercised in interpreting FRAX scores as the fracture risk may be overestimated. REFERENCE: Bone mineral density: Normal (T-score above or = -1.0) Low bone mass (T-score between -1.0 and -2.5) replaces the previously used term osteopenia Osteoporosis (T-score = or below -2.5) Medical evaluation for secondary causes of low bone mineral density may be appropriate. FRAX is a World Health Organization validated fracture risk assessment tool that calculates a person's 10 year probability of a major osteoporosis related fracture and hip fracture. According to the National Osteoporosis Foundation guidelines, postmenopausal women and men age 50 or older with low bone mass and a 10 year probability of a major osteoporosis related fracture = or greater than 20% or a 10 year probability of a hip fracture = or greater than 3% should be considered for treatment. For further information, including treatment recommendations, please refer to the 2013 ISCD Official Positions (http://www.iscd.org) and the NOF's Clinician's Guide to Prevention and Treatment of Osteoporosis (http://www.nof.org/professionals/clinical-guidelines) THIS IS AN ELECTRONICALLY VERIFIED FINAL REPORT 02/15/2021 12:52 PM - Electronically signed by Tavon Ferrera M.D. MD: Report ID: [id number] Reading Location: [place] [address] Procedure Note Tavon Ferrera MD - 02/15/2021 EXAM DESCRIPTION: DEXA AXIAL SKELETON BONE DENSITY 1 OR MORE SITES REASON FOR STUDY: 86 year old female with given history ofosteoarthritis, postmenopausal state. 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 FINDINGS: AP LUMBAR SPINE L1-L4: Total BMD is 1.317 g/cm2 T-score is 2.5 LEFT HIP: Total BMD is 0.948 g/cm2 T-score is 0.0 Femoral neck BMD is 0.668 g/cm2 T-score is -1.6 IMPRESSION: Low bone mass (based on left femoral neck BMD). Fracture risk assessment (FRAX): 10 year risk for a major osteoporotic fracture is 14 % 10 year risk for a hip fracture is 3.8 % The FRAX tool has not been validated in patients currently or previously treated with pharmacotherapy for osteoporosis. In such patients, clinical judgement must be exercised in interpreting FRAX scores as the fracturerisk may be overestimated. REFERENCE: Bone mineral density: Normal (T-score above or = -1.0) Low bone mass (T-score between -1.0 and -2.5) replaces thepreviously used term osteopenia Osteoporosis (T-score = or below -2.5) Medical evaluation for secondary causes of low bone mineral density may be appropriate. FRAX is a World Health Organization validated fracture risk assessmenttool that calculates a person's 10 year probability of a major osteoporosisrelated fracture and hip fracture. According to the National OsteoporosisFoundation guidelines, postmenopausal women and men age 50 or older with low bonemass and a 10 year probability of a major osteoporosis related fracture = or greater than 20% or a 10 year probability of a hip fracture = or greaterthan 3% should be considered for treatment. For further information, including treatment recommendations, please referto the 2013 ISCD Official Positions (http://www.iscd.org) and the NOF's Clinician's Guide to Prevention and Treatment of Osteoporosis (http://www.nof.org/professionals/clinical-guidelines) THIS IS AN ELECTRONICALLY VERIFIED FINAL REPORT 02/15/2021 12:52 PM - Electronically signed by Tavon Ferrera M.D. MD: Report ID: [id number] Reading Location: [place] [address] Quincy Butt MD IMG DXA PROCEDURES Final R esult * (ABNORMAL) Lipid panel (03/10/2020 1:58 PM PRINT LINE SUPERVISOR) [facility] Cholesterol 233(H) 30 - 199 mg/dL [facility] Comment: Interpretive Data Ages < or = 19 years Acceptable: <170 mg/dL Borderline high: 170-199 mg/dL High: >or= 200 mg/dL Ages > or = 20 years Desirable: <200 mg/dL Borderline high: 200-239 mg/dL High: >or= 240 mg/dL Literature References: 1. Expert Panel on Integrated Guidelines for Cardiovascular Health and Risk Reduction in Children and Adolescents. Pediatrics 2011;128:S213 2. NCEP Expert Panel. Circulation 2004;110:227 Current Interpretive Data was last revised on 2017. Triglycerides 216(H) <=149 mg/dL [facility] Comment: Interpretive Data Ages < or = 9 years Acceptable: <75 mg/dL Borderline high: 75-99 mg/dL High: >or= 100 mg/dL Ages 10 to 20 years Acceptable: <90 mg/dL Borderline high: 90-129 mg/dL High: >or= 130 mg/dL Ages > or = 20 years Desirable: <150 mg/dL Borderline high: 150-199 mg/dL High: 200-499 mg/dL Very high: >or= 499 mg/dL Literature References: 1. Expert Panel on Integrated Guidelines for Cardiovascular Health and Risk Reduction in Children and Adolescents. Pediatrics 2011;128:S213 2. NCEP Expert Panel. Circulation 2004;110:227 Current Interpretive Data was last revised on 2017. HDL 56 >=40 mg/dL JIN Comment: Interpretive Data Ages < or = 19 years Acceptable: >45 mg/dL Borderline low: 40-45 mg/dL Low: <40 mg/dL Ages > or = 20 years Desirable: >or= 60 mg/dL Low: <40 mg/dL Literature References: 1. Expert Panel on Integrated Guidelines for Cardiovascular Health and Risk Reduction in Children and Adolescents. Pediatrics 2011;128:S213 2. NCEP Expert Panel. Circulation 2004;110:227 Current Interpretive Data was last revised on 2017. LDL, calculated 134(H) <=129 mg/dL JIN Comment: Interpretive Data Ages < or = 19 years Acceptable: <110 mg/dL Borderline high: 110-129 mg/dL High: >or= 130 mg/dL Ages > or = 20 years Optimal: <100 mg/dL Near optimal: 100-129 mg/dL Borderline high: 130-159 mg/dL High: >160 mg/dL Literature References: 1. Expert Panel on Integrated Guidelines for Cardiovascular Health and Risk Reduction in Children and Adolescents. Pediatrics 2011;128:S213 2. NCEP Expert Panel. Circulation 2004;110:227 Current Interpretive Data was last revised on 2017. Non-HDL Cholesterol 177 mg/dL JIN Comment: Interpretive Data Ages < or = 19 years Acceptable: <120 mg/dL Borderline high: 120-144 mg/dL High: >145 mg/dL Ages > or = 20 years When triglycerides are >200 mg/dL, Non-HDL cholesterol is a secondary target of therapy with treatment goals that are 30 mg/dL greater than the LDL cholesterol target. Literature References: 1. Expert Panel on Integrated Guidelines for Cardiovascular Health and Risk Reduction in Children and Adolescents. Pediatrics 2011;128:S213 2. NCEP Expert Panel. Circulation 2004;110:227 Current Interpretive Data was last revised on 2017. Chol/HDL ratio 4 JIN Blood specimen (specimen) 03/10/2020 1:58 PM PRINT LINE SUPERVISOR 03/10/2020 4:49 PM PRINT LINE SUPERVISOR Quincy Butt MD LAB BLOOD ORDERABLES Final Result Performing Organization Address [facility] Co de Phone Number JIN [facility] [address] [place] [address] * Albumin Creatinine Ratio, Urine (03/02/2019 2:52 PM CDT) Albumin Ur 28.1 mg/L [facility] Comment: Interpretive Data No reference range established. Current interpretive data was last revised 2018. Creatinine Ur 148.4 mg/dL JIN Comment: Interpretive Data No reference range established. Current interpretive data was last revised 2018. Albumin Creatinine Ratio, Ur 19 1 - 29 mg/g [facility] Urine 03/02/2019 2:52 PM CDT 03/02/2019 8:54 PM CDT Quincy Butt MD LAB URINE ORDERABLES Final Result Performing Organization Address [facility] de Phone Number JIN [facility] [address] [place] [address] from Last 3 Months or Most Recently Relevant to Health Maintenance Insurance COMMERCIAL GENERIC MEDICARE MEDICARE ADVANTAGE [facility] MEDICARE ADVANTAGE Advance Directives For more information, please contact: [phone] * Full Code (Latest Code Status on File) Date Activated Date Inactivated Comments 01/20/2024 4:19 PM 01/24/2024 6:00 PM * Full Code Date Activated Date Inactivated Comments 01/16/2024 9:42 PM 01/20/2024 4:19 PM Care Teams Lead Care Manager Relationship Specialty Start Date End Date Pierre Fuentes PA [address] [place] [address] PCP - General Family Practice 10/01/23
--- OUTSIDE RECORDS SUMMARY | 2024-09-24 10:42 | XMS_ITS | Data Portability ---
Author Organization [facility] Address [address] [place] [address] Care Team Providers Care Armament Mechanic Name Role Phone CASIE FUENTES Primary Care Provider Assessment No assessment recorded. Plan of Treatment Reminders Order Date Submit Date Provider Last Modified By Organization Details Last Modified Time Details Appointments None recorded. Lab HbA1c (hemoglobi n A1c), blood 2024 025 jnann In-Office Order, Internal Use Only DO Not Attach Compendium DO Not Attach Compendium, Do Not Delete/merge, [id number] 5 12:03:49 influenza virus A + B + SARS-CoV-2 (COVID19) Ag panel, rapid IA, upper respirator y specimen 2024 025 [facility] Order, Internal Use Only DO Not Attach Compendium DO Not Attach Compendium, Do Not Delete/merge, [id number] 5 12:03:49 urinalysis , dipstick 2024 025 FREDDIE In-Office Order, Internal Use Only DO Not Attach Compendium DO Not Attach Compendium, Do Not Delete/merge, [id number] 5 12:17:36 CBC 2024 025 FREDDIE [facility], [address] [facility], [facility] [address], [place], [address], 5 10:14:14 CMP, serum or plasma 2024 025 FREDDIE [facility], [address] [facility], [place], [address], 5 10:14:11 lipid panel, serum 2024 025 FREDDIE [facility], [address], [place], [address], 5 10:14:09 CBC 2023 024 FREDDIE [facility], [address], [place], [address], 4 06:16:22 CBC 2023 024 FREDDIE [facility], [address], [place], [address], 4 15:11:40 CMP, serum or plasma 2023 024 FREDDIE [facility], [address], [place], [address], 4 15:11:37 lipid panel, serum 2023 024 FREDDIE [facility], [address], [place], [address], 4 15:11:36 HbA1c (hemoglobi n A1c), blood 2023 024 FREDDIE In-Office Order, Internal Use Only DO Not Attach Compendium DO Not Attach Compendium, Do Not Delete/merge, [id number] 4 11:04:54 TSH + free T4, serum 2023 024 FREDDIE [facility], [address], [place], [address], 4 15:11:35 BNP (B-type natriureti c peptide), serum or plasma 2023 024 FREDDIE [facility], [address], [place], [address], 4 08:27:[address] referral 2023 [place], [address], [facility] [address], [place], [address], 4 13:21:12 Procedures None recorded. Surgeries None recorded. Imaging US, echocardio gram, transthora cic, complete 2023 [facility], [address] [facility] [place], [address], 4 13:04:17 Medication Orders [facility]izine 25 [facility] tablet 2024 [facility] [address], [place], [address], 5 13:12:28 ondansetro n HCl 4 mg tablet 2023 024 [facility] [address], [address], [place], [address], 4 11:45:32 amlodipine 2.5 mg tablet 2023 [facility] [address], [address], [place], [address], 4 10:38:37 Patient TargetsNo targets recorded. Patient Instructions Encounter Date Encounter Id Patient Instructions Last Modified By Organization Details Last Modified Time 10/01/2023 [id number] type 2 diabetes: care instructions jnanney Not available 10/01/2023 10:33:41 learning about high blood pressure jnanney Not available 10/01/2023 10:33:40 hypothyroidism: care instructions jnanney Not available 10/01/2023 10:41:24 10/15/2023 [id number] A healthy lifestyle: care instructions jnanney Not available 10/15/2023 10:49:23 learning about high blood pressure jnanney Not available 10/15/2023 10:49:23 02/10/2024 [id number] influenza (flu) vaccine: care instructions jnanney Not available 02/10/2024 12:01:06 A healthy lifestyle: care instructions jnanney Not available 02/10/2024 11:45:26 nausea and vomiting: care instructions jnanney Not available 02/10/2024 11:45:26 diverticulosis: care instructions jnanney Not available 02/10/2024 11:45:27 learning about diverticulosis and diverticulitis jnanney Not available 02/10/2024 11:45:26 iron deficiency anemia: care instructions jnanney Not available 02/10/2024 11:45:27 07/09/2024 [id number] benign paroxysma l positional vertigo (bppv): care instructions jnanney Not available 07/09/2024 16:21:23 07/15/2024 [id number] learning about high blood sugar jnanney Not available 07/15/2024 12:03:49 Reason for Referral Report Developer Referral for Dy spnea on exertion Referring Physician: Casie Fuentes, Family Medicine, Encounter Date: 10/01/2023 Results Created Date Observation Date Name Description Value Unit Range Abnormal Flag Note LastModifiedBy Organization Detail LastModifiedTime 10/01/1910/02/2023 B-TYP E NATRI URETI C PEPTI DE B-type natriuretic peptide 197.3 pg/mL 0.0-10 0.0 above high normal Sieme ns [facility] Not Available [facility] ([facility]) [address] [facility], [place], [address], 10/02/2023 08:27:04 10/01/1910/02/2023 TSH+F REE T4 TSH 1.750 uIU/m L 0.450- 4.500 Not Available [facility] [id number] [place] [address], [address], 10/02/2023 15:11:35 10/01/1910/02/2023 TSH+F REE T4 T4,free(dire ct) 1.22 NG/dL 0.82-1 .77 Not Available [facility] [address] [place] [address], [address], 10/02/2023 15:11:35 10/01/19 24 10/02/2023 LIPID PANEL cholesterol, total 219 mg/dL 100-19 9 above high normal Not Available [address], [address], 10/02/2023 15:11:36 10/01/19 24 10/02/2023 LIPID PANEL triglyceride s 127 mg/dL 0-149 Not Available [address], [address], 10/02/2023 15:11:36 10/01/19 24 10/02/2023 LIPID PANEL HDL cholesterol 69 mg/dL >39 Not Available [address], [address], 10/02/2023 15:11:36 10/01/19 24 10/02/2023 LIPID PANEL VLDL cholesterol ines 22 mg/dL 5-40 Not Available [address], [address], 10/02/2023 15:11:36 10/01/19 24 10/02/2023 LIPID PANEL LDL chol calc (nih) 128 mg/dL 0-99 above high normal Not Available [address], [address], 10/02/2023 15:11:36 10/01/19 24 10/02/2023 COMP. METAB OLIC PANEL (14) glucose 128 mg/dL 70-99 above high normal Not Available [address], [address], 10/02/2023 15:11:37 10/01/19 24 10/02/2023 COMP. METAB OLIC PANEL (14) BUN 21 mg/dL 8-27 Not Available [address], [address], 10/02/2023 15:11:37 10/01/19 24 10/02/2023 COMP. METAB OLIC PANEL (14) creatinine 1.51 mg/dL 0.57-1 .00 above high normal Not Available [address], [address], 10/02/2023 15:11:37 10/01/19 24 10/02/2023 COMP. METAB OLIC PANEL (14) eGFR 33 mL/mi n/1.7 3 >59 below low normal Not Available [address], [address], 10/02/2023 15:11:37 10/01/19 24 10/02/2023 COMP. METAB OLIC PANEL (14) BUN/creatini ne ratio 14 12-28 Not Available [address], [address], 10/02/2023 15:11:37 10/01/19 24 10/02/2023 COMP. METAB OLIC PANEL (14) sodium 140 mmol/ L 134-14 4 Not Available [address], [address], 10/02/2023 15:11:37 10/01/19 24 10/02/2023 COMP. METAB OLIC PANEL (14) potassium 4.5 mmol/ L 3.5-5. 2 Not Available [address], [address], 10/02/2023 15:11:37 10/01/19 24 10/02/2023 COMP. METAB OLIC PANEL (14) chloride 101 mmol/ L 96-106 Not Available [address], [address], 10/02/2023 15:11:37 10/01/19 24 10/02/2023 COMP. METAB OLIC PANEL (14) carbon dioxide, total 25 mmol/ L Not Available [address], [address], 10/02/2023 15:11:37 10/01/19 24 10/02/2023 COMP. METAB OLIC PANEL (14) calcium 8.8 mg/dL 8.7-10 .3 Not Available [address], [address], 10/02/2023 15:11:37 10/01/19 24 10/02/2023 COMP. METAB OLIC PANEL (14) protein, total 6.0 g/dL 6.0-8. 5 Not Available [address], [address], 10/02/2023 15:11:37 10/01/19 24 10/02/2023 COMP. METAB OLIC PANEL (14) albumin 3.6 g/dL 3.7-4. 7 below low normal Not Available [address], [address], 10/02/2023 15:11:37 10/01/19 24 10/02/2023 COMP. METAB OLIC PANEL (14) globulin, total 2.4 g/dL 1.5-4. 5 Not Available [address], [address], 10/02/2023 15:11:37 10/01/19 24 10/02/2023 COMP. METAB OLIC PANEL (14) A/G ratio 1.5 1.2-2. 2 Not Available [address], [address], 10/02/2023 15:11:37 10/01/19 24 10/02/2023 COMP. METAB OLIC PANEL (14) bilirubin, total 0.4 mg/dL 0.0-1. 2 Not Available [address], [address], 10/02/2023 15:11:37 10/01/19 24 10/02/2023 COMP. METAB OLIC PANEL (14) alkaline phosphatase 83 IU/L 44-121 Not Available [address], [address], 10/02/2023 15:11:37 10/01/19 24 10/02/2023 COMP. METAB OLIC PANEL (14) AST (SGOT) 17 IU/L 0-40 Not Available [address], [address], 10/02/2023 15:11:37 10/01/19 24 10/02/2023 COMP. METAB OLIC PANEL (14) ALT (SGPT) 8 IU/L 0-32 Not Available [address], [address], 10/02/2023 15:11:37 10/01/19 24 10/02/2023 LITHO LINK CKD PROGR AM interpretati on Note Suppl ement al repor t is avail able. Not Available [address], [address], 10/02/2023 15:11:39 10/01/19 24 10/02/2023 LITHO LINK CKD PROGR AM pdf . Not Available [address], [address], 10/02/2023 15:11:39 10/01/19 24 10/02/2023 CARDI OVASC ULAR REPOR T interpretati on Note Suppl ement al repor t is avail able. Not Available [address], [address], 10/02/2023 15:11:40 10/01/19 24 10/02/2023 CARDI OVASC ULAR REPOR T pdf Not applic able Not Available [address], [address], 10/02/2023 15:11:40 10/01/19 24 10/02/2023 CBC, PLATE LET, NO DIFFE RENTI AL WBC 7.9 x10e3 /uL 3.4-10 .8 Not Available [address], [address], 10/02/2023 15:11:40 10/01/19 24 10/02/2023 CBC, PLATE LET, NO DIFFE RENTI AL RBC 4.21 x10e6 /uL 3.77-5 .28 Not Available [address], [address], 10/02/2023 15:11:40 10/01/19 24 10/02/2023 CBC, PLATE LET, NO DIFFE RENTI AL hemoglobin 12.4 g/dL 11.1-1 5.9 Not Available [address], [address], 10/02/2023 15:11:40 10/01/19 24 10/02/2023 CBC, PLATE LET, NO DIFFE RENTI AL hematocrit 39.3 % 34.0-4 6.6 Not Available [address], [address], 10/02/2023 15:11:40 10/01/19 24 10/02/2023 CBC, PLATE LET, NO DIFFE RENTI AL MCV 93 fL 79-97 Not Available [address], [address], 10/02/2023 15:11:40 10/01/19 24 10/02/2023 CBC, PLATE LET, NO DIFFE RENTI AL MCH 29.5 pg 26.6-3 3.0 Not Available [address], [address], 10/02/2023 15:11:40 10/01/19 24 10/02/2023 CBC, PLATE LET, NO DIFFE RENTI AL MCHC 31.6 g/dL 31.5-3 5.7 Not Available [address], [address], 10/02/2023 15:11:40 10/01/19 24 10/02/2023 CBC, PLATE LET, NO DIFFE RENTI AL RDW 13.1 % 11.7-1 5.4 Not Available [address], [address], 10/02/2023 15:11:40 10/01/19 24 10/02/2023 CBC, PLATE LET, NO DIFFE RENTI AL platelets 279 x10e3 /uL 150-45 0 Not Available [address], [address], 10/02/2023 15:11:40 10/01/19 24 10/01/2023 HbA1c (hemo globi n A1c), blood HbA1c 6.3 Not Available In-Office Order Internal Use Only DO Not Attach Compendium DO Not Attach Compendium, Do Not Delete/merge, [id number] 10/01/2023 10:29:09 02/10/20 24 02/11/2024 CBC, PLATE LET, NO DIFFE RENTI AL WBC 7.4 x10e3 /uL 3.4-10 .8 Not Available [facility] ([facility]) [address] [facility], [place], [address], 02/11/2024 06:16:22 02/10/20 24 02/11/2024 CBC, PLATE LET, NO DIFFE RENTI AL RBC 3.35 x10e6 /uL 3.77-5 .28 below low normal Not Available [facility] ([facility]) [address] [facility], [place], [address], 02/11/2024 06:16:22 02/10/2002/11/2024 CBC, PLATE LET, NO DIFFE RENTI AL hemoglobin 9.7 g/dL 11.1-1 5.9 below low normal Not Available [facility] ([facility]) [address] [facility], [place], [address], 02/11/2024 06:16:22 02/10/2002/11/2024 CBC, PLATE LET, NO DIFFE RENTI AL hematocrit 31.6 % 34.0-4 6.6 below low normal Not Available [facility] ([facility]) [address] [facility], [place], [address], 02/11/2024 06:16:22 02/10/2002/11/2024 CBC, PLATE LET, NO DIFFE RENTI AL MCV 94 fL 79-97 Not Available [facility] ([facility]) [address] [facility], [place], [address], 02/11/2024 06:16:22 02/10/2002/11/2024 CBC, PLATE LET, NO DIFFE RENTI AL MCH 29.0 pg 26.6-3 3.0 Not Available [facility] ([facility]) [address] [facility], [place], [address], 02/11/2024 06:16:22 02/10/2002/11/2024 CBC, PLATE LET, NO DIFFE RENTI AL MCHC 30.7 g/dL 31.5-3 5.7 below low normal Not Available [facility] ([facility]) [address] [facility], [place], [address], 02/11/2024 06:16:22 02/10/2002/11/2024 CBC, PLATE LET, NO DIFFE RENTI AL RDW 13.4 % 11.7-1 5.4 Not Available [facility] ([facility]) [address] [facility], [place], [address], 02/11/2024 06:16:22 02/10/20 24 02/11/2024 CBC, PLATE LET, NO DIFFE RENTI AL platelets 291 x10e3 /uL 150-45 0 Not Available [facility] ([facility]) [address] [facility], [place], [address], 02/11/2024 06:16:22 07/16/19 25 07/16/2024 LIPID PANEL cholesterol, total 235 mg/dL 100-19 9 above high normal Not Available [address], [address], 07/16/2024 10:14:09 07/16/19 25 07/16/2024 LIPID PANEL triglyceride s 206 mg/dL 0-149 above high normal Not Available [address], [address], 07/16/2024 10:14:09 07/16/19 25 07/16/2024 LIPID PANEL HDL cholesterol 63 mg/dL >39 Not Available [address], [address], 07/16/2024 10:14:09 07/16/19 25 07/16/2024 LIPID PANEL VLDL cholesterol ines 36 mg/dL 5-40 Not Available [address], [address], 07/16/2024 10:14:09 07/16/19 25 07/16/2024 LIPID PANEL LDL chol calc ([facility]) 136 mg/dL 0-99 above high normal Not Available [address], [address], 07/16/2024 10:14:09 07/16/19 25 07/16/2024 COMP. METAB OLIC PANEL (14) glucose 211 mg/dL 70-99 above high normal Not Available [address], [address], 07/16/2024 10:14:11 07/16/19 25 07/16/2024 COMP. METAB OLIC PANEL (14) BUN 17 mg/dL 8-27 Not Available [address], [address], 07/16/2024 10:14:11 07/16/19 25 07/16/2024 COMP. METAB OLIC PANEL (14) creatinine 1.36 mg/dL 0.57-1 .00 above high normal Not Available [address], [address], 07/16/2024 10:14:11 07/16/19 25 07/16/2024 COMP. METAB OLIC PANEL (14) eGFR 37 mL/mi n/1.7 3 >59 below low normal Not Available [address], [address], 07/16/2024 10:14:11 07/16/19 25 07/16/2024 COMP. METAB OLIC PANEL (14) BUN/creatini ne ratio 13 12-28 Not Available [address], [address], 07/16/2024 10:14:11 07/16/19 25 07/16/2024 COMP. METAB OLIC PANEL (14) sodium 140 mmol/ L 134-14 4 Not Available [address], [address], 07/16/2024 10:14:11 07/16/19 25 07/16/2024 COMP. METAB OLIC PANEL (14) potassium 4.0 mmol/ L 3.5-5. 2 Not Available [address], [address], 07/16/2024 10:14:11 07/16/19 25 07/16/2024 COMP. METAB OLIC PANEL (14) chloride 100 mmol/ L 96-106 Not Available [address], [address], 07/16/2024 10:14:11 07/16/19 25 07/16/2024 COMP. METAB OLIC PANEL (14) carbon dioxide, total 24 mmol/ L 20-29 Not Available [address], [address], 07/16/2024 10:14:11 07/16/19 25 07/16/2024 COMP. METAB OLIC PANEL (14) calcium 8.9 mg/dL 8.7-10 .3 Not Available [address], [address], 07/16/2024 10:14:11 07/16/19 25 07/16/2024 COMP. METAB OLIC PANEL (14) protein, total 6.1 g/dL 6.0-8. 5 Not Available [address], [address], 07/16/2024 10:14:11 07/16/19 25 07/16/2024 COMP. METAB OLIC PANEL (14) albumin 3.8 g/dL 3.7-4. 7 Not Available [address], [address], 07/16/2024 10:14:11 07/16/19 25 07/16/2024 COMP. METAB OLIC PANEL (14) globulin, total 2.3 g/dL 1.5-4. 5 Not Available [address], [address], 07/16/2024 10:14:11 07/16/19 25 07/16/2024 COMP. METAB OLIC PANEL (14) bilirubin, total 0.5 mg/dL 0.0-1. 2 Not Available [address], [address], 07/16/2024 10:14:11 07/16/19 25 07/16/2024 COMP. METAB OLIC PANEL (14) alkaline phosphatase 92 IU/L 44-121 Not Available [address], [address], 07/16/2024 10:14:11 07/16/19 25 07/16/2024 COMP. METAB OLIC PANEL (14) AST (SGOT) 15 IU/L 0-40 Not Available [address], [address], 07/16/2024 10:14:11 07/16/19 25 07/16/2024 COMP. METAB OLIC PANEL (14) ALT (SGPT) 6 IU/L 0-32 Not Available [address], [address], 07/16/2024 10:14:11 07/16/19 25 07/16/2024 LITHO LINK CKD PROGR AM interpretati on Note Suppl ement al repor t is avail able. Not Available [address], [address], 07/16/2024 10:14:12 07/16/19 25 07/16/2024 LITHO LINK CKD PROGR AM pdf . Not Available [address], [address], 07/16/2024 10:14:12 07/16/19 25 07/16/2024 CARDI OVASC ULAR REPOR T interpretati on Note Suppl ement al repor t is avail able. Not Available [address], [address], 07/16/2024 10:14:13 07/16/19 25 07/16/2024 CARDI OVASC ULAR REPOR T pdf Not applic able Not Available [address], [address], 07/16/2024 10:14:13 07/16/19 25 07/16/2024 CBC, PLATE LET, NO DIFFE RENTI AL WBC 12.0 x10e3 /uL 3.4-10 .8 above high normal Not Available [address], [address], 07/16/2024 10:14:14 07/16/1907/16/2024 CBC, PLATE LET, NO DIFFE RENTI AL RBC 4.57 x10e6 /uL 3.77-5 .28 Not Available [address], [address], 07/16/2024 10:14:14 07/16/19 25 07/16/2024 CBC, PLATE LET, NO DIFFE RENTI AL hemoglobin 13.4 g/dL 11.1-1 5.9 Not Available [address], [address], 07/16/2024 10:14:14 07/16/19 25 07/16/2024 CBC, PLATE LET, NO DIFFE RENTI AL hematocrit 43.6 % 34.0-4 6.6 Not Available [address], [address], 07/16/2024 10:14:14 07/16/1907/16/2024 CBC, PLATE LET, NO DIFFE RENTI AL MCV 95 fL 79-97 Not Available [address], [address], 07/16/2024 10:14:14 07/16/19 25 07/16/2024 CBC, PLATE LET, NO DIFFE RENTI AL MCH 29.3 pg 26.6-3 3.0 Not Available [address], [address], 07/16/2024 10:14:14 07/16/19 25 07/16/2024 CBC, PLATE LET, NO DIFFE RENTI AL MCHC 30.7 g/dL 31.5-3 5.7 below low normal Not Available [address], [address], 07/16/2024 10:14:14 07/16/1907/16/2024 CBC, PLATE LET, NO DIFFE RENTI AL RDW 13.1 % 11.7-1 5.4 Not Available [address], [address], 07/16/2024 10:14:14 07/16/19 25 07/16/2024 CBC, PLATE LET, NO DIFFE RENTI AL platelets 246 x10e3 /uL 150-45 0 Not Available [address], [address], 07/16/2024 10:14:14 07/16/1907/15/2024 urina lysis , dipst ick Leukocytes Negati ve Not Available In-Office Order Internal Use Only DO Not Attach Compendium DO Not Attach Compendium, Do Not Delete/merge, 07/15/2024 11:30:52 07/16/1907/15/2024 urina lysis , dipst ick Nitrite negati ve Not Available In-Office Order Internal Use Only DO Not Attach Compendium DO Not Attach Compendium, Do Not Delete/merge, 07/15/2024 11:30:52 07/16/19 25 07/15/2024 urina lysis , dipst ick Urobilinogen .2 Not Available In-Of fice Order Internal Use Only DO Not Attach Compendium DO Not Attach Compendium, Do Not Delete/merge, 07/15/2024 11:30:52 07/16/19 25 07/15/2024 urina lysis , dipst ick Protein Trace Not Available In-Office Order Internal Use Only DO Not Attach Compendium DO Not Attach Compendium, Do Not Delete/merge, 07/15/2024 11:30:52 07/16/19 25 07/15/2024 urina lysis , dipst ick pH 6.0 Not Available In-Office Order Internal Use Only DO Not Attach Compendium DO Not Attach Compendium, Do Not Delete/merge, 07/15/2024 11:30:52 07/16/19 25 07/15/2024 urina lysis , dipst ick Blood Negati ve Not Available In-Office Order Internal Use Only DO Not Attach Compendium DO Not Attach Compendium, Do Not Delete/merge, 07/15/2024 11:30:52 07/16/19 25 07/15/2024 urina lysis , dipst ick Specific Marsing 1.030 Not Available In-Off ice Order Internal Use Only DO Not Attach Compendium DO Not Attach Compendium, Do Not Delete/merge, 07/15/2024 11:30:52 07/16/19 25 07/15/2024 urina lysis , dipst ick Ketone Negati ve Not Available In-Office Order Internal Use Only DO Not Attach Compendium DO Not Attach Compendium, Do Not Delete/merge, 07/15/2024 11:30:52 07/16/19 25 07/15/2024 urina lysis , dipst ick Bilirubin Negati ve Not Available In-Office Order Internal Use Only DO Not Attach Compendium DO Not Attach Compendium, Do Not Delete/merge, 07/15/2024 11:30:52 07/16/19 25 07/15/2024 urina lysis , dipst ick Glucose Negati ve Not Available In-Office Order Internal Use Only DO Not Attach Compendium DO Not Attach Compendium, Do Not Delete/merge, 07/15/2024 11:30:52 07/16/19 25 07/15/2024 urina lysis , dipst ick Appearance Turbid Not Available In-Offi ce Order Internal Use Only DO Not Attach Compendium DO Not Attach Compendium, Do Not Delete/merge, 07/15/2024 11:30:52 07/16/19 25 07/15/2024 urina lysis , dipst ick Color Dark Yellow Not Available In-Office Order Internal Use Only DO Not Attach Compendium DO Not Attach Compendium, Do Not Delete/merge, 07/15/2024 11:30:52 07/16/19 25 07/15/2024 HbA1c (hemo globi n A1c), blood HbA1c 7.1 Not Available In-Office Order Internal Use Only DO Not Attach Compendium DO Not Attach Compendium, Do Not Delete/merge, 07/14/2024 17:30:38 07/16/19 25 07/15/2024 influ trav virus A + B + SARS- CoV-2 (COVI D19) Ag panel , rapid IA, upper respi rator y speci men Flu A negati ve Not Available In-Office Order Internal Use Only DO Not Attach Compendium DO Not Attach Compendium, Do Not Delete/merge, 07/15/2024 11:23:27 07/16/19 25 07/15/2024 influ trav virus A + B + SARS- CoV-2 (COVI D19) Ag panel , rapid IA, upper respi rator y speci men Flu B negati ve Not Available In-Office Order Internal Use Only DO Not Attach Compendium DO Not Attach Compendium, Do Not Delete/merge, 07/15/2024 11:23:27 07/16/19 25 07/15/2024 influ trav virus A + B + SARS- CoV-2 (COVI D19) Ag panel , rapid IA, upper respi rator y speci men Rapid SARS CoV 2 Ag, QL IA, respiratory specimen negati ve Not Available In-Office Order Internal Use Only DO Not Attach Compendium DO Not Attach Compendium, Do Not Delete/merge, 07/15/2024 11:23:27 08/23/19 25 08/22/2024 Urina lysis compl ete panel - Urine color of urine YELLOW COLOR (U) JEREMYLLO W 08/22 6:10 PM CDT [facility] Not Available Not Available 08/28/2024 02:22:24 08/23/19 25 08/22/2024 Urina lysis compl ete panel - Urine clarity of urine SLIGHT LY CLOUDY TRANS PAREN CY SLIGH TLY CLOUD Y 08/22 6:10 PM CDT [facility] Not Available Not Available 08/28/2024 02:22:24 08/23/19 25 08/22/2024 Urina lysis compl ete panel - Urine specific gravity of urine 1.02 low: 1.002h igh: 1.035 SPECI FIC GRAVI TY (U) 1.020 1.002 - 1.035 08/22 6:10 PM CDT [facility] Not Available Not Available 08/28/2024 02:22:24 08/23/19 25 08/22/2024 Urina lysis compl ete panel - Urine pH of urine 5 low: 5high: 8 U PH 5.0 5 - 8 08/22 6:10 PM CDT [facility] Not Available Not Available 08/28/2024 02:22:24 08/23/19 25 08/22/2024 Urina lysis compl ete panel - Urine protein [presence] in urine by automated test strip 20 text: negati ve abnormal PROTE IN RANDO M (U) 20 (A) NEGAT MADISYN 08/22 6:10 PM CDT [facility] Not Available Not Available 08/28/2024 02:22:24 08/23/19 25 08/22/2024 Urina lysis compl ete panel - Urine glucose [mass/volume ] in urine NEGATI VE text: negati ve mg/dL GLUCO SE (U) NEGAT MADISYN NEGAT MADISYN MG/DL 08/22 6:10 PM CDT [facility] Not Available Not Available 08/28/2024 02:22:24 08/23/19 25 08/22/2024 Urina lysis compl ete panel - Urine ketones [presence] in urine by automated test strip NEGATI VE text: negati ve KETON ES MG/DL (U) NEGAT MADISYN NEGAT MADISYN 08/22 6:10 PM CDT [facility] Not Available Not Available 08/28/2024 02:22:24 08/23/19 25 08/22/2024 Urina lysis compl ete panel - Urine bilirubin.to bita [presence] in urine by automated test strip NEGATI VE text: negati ve BILIR UBIN (U) NEGAT MADISYN NEGAT MADISYN 08/22 6:10 PM CDT [facility] Not Available Not Available 08/28/2024 02:22:24 08/23/19 25 08/22/2024 Urina lysis compl ete panel - Urine erythrocytes [#/volume] in urine by automated test strip 1+ text: negati ve abnormal BLOOD (U) 1+ (A) NEGAT MADISYN 08/22 6:10 PM CDT [facility] Not Available Not Available 08/28/2024 02:22:24 08/23/19 25 08/22/2024 Urina lysis compl ete panel - Urine nitrite [presence] in urine by test strip NEGATI VE text: negati ve NITRI SIMIN NEGAT MADISYN NEGAT MADISYN 08/22 6:10 PM CDT [facility] Not Available Not Available 08/28/2024 02:22:24 08/23/19 25 08/22/2024 Urina lysis compl ete panel - Urine urobilinogen [units/volum e] in urine by test strip 2 text: 0 - 1 eu/dL high UROBI LINOG EN 2.0 (H) 0 - 1 EU/DL 08/22 6:10 PM CDT [facility] Not Available Not Available 08/28/2024 02:22:24 08/23/19 25 08/22/2024 Urina lysis compl ete panel - Urine leukocyte esterase [presence] in urine by test strip 2+ text: negati ve abnormal LEUKO CYTES (U) 2+ (A) NEGAT MADISYN 08/22 6:10 PM CDT [facility] Not Available Not Available 08/28/2024 02:22:24 08/23/19 25 08/22/2024 Urina lysis compl ete panel - Urine erythrocytes [#/area] in urine sediment by microscopy high power field 17 text: 0 - 3 /hpf high RBC/H PF 17 (H) 0 - 3 /HPF 08/22 6:10 PM CDT [facility] Not Available Not Available 08/28/2024 02:22:24 08/23/19 25 08/22/2024 Urina lysis compl ete panel - Urine leukocytes [#/area] in urine sediment by microscopy high power field 26 text: 0 - 6 /hpf high WBC/H PF 26 (H) 0 - 6 /HPF 08/22 6:10 PM CDT [facility] Not Available Not Available 08/28/2024 02:22:24 08/23/19 25 08/22/2024 Urina lysis compl ete panel - Urine bacteria [#/area] in urine sediment by microscopy high power field PRESEN T text: /hpf BACTE DOMINIQUE (U) PRESE NT /HPF 08/22 6:10 PM CDT [facility] Not Available Not Available 08/28/2024 02:22:24 08/23/19 25 08/22/2024 Urina lysis compl ete panel - Urine epithelial cells.squamo us [presence] in urine sediment by light microscopy SQUAM OUS EPITH ELIAL S <1 08/22 6:10 PM CDT [facility] Not Available Not Available 08/28/2024 02:22:24 08/23/19 25 08/22/2024 Urina lysis compl ete panel - Urine epithelial cells.non-sq uamous [#/area] in urine sediment by microscopy high power field text: /hpf NON SQUAM OUS EPITH ELIAL <1 /HPF 08/22 6:10 PM CDT [facility] Not Available Not Available 08/28/2024 02:22:24 08/23/19 25 08/22/2024 Urina lysis compl ete panel - Urine hyaline casts [#/area] in urine sediment by microscopy low power field 54 HYALI NE CASTS 54 08/22 6:10 PM CDT [facility] Not Available Not Available 08/28/2024 02:22:24 08/23/19 25 08/22/2024 Urina lysis compl ete panel - Urine interpretati on and review of laboratory results Abnorm al Not Available Not Available 02:22:24 08/23/19 25 08/22/2024 Thyro tropi n [Unit s/vol ume] in Serum or Plasm a thyrotropin [units/volum e] in serum or plasma 1.5 text: 0.358 - 3.740 uIU/mL TSH 1.500 0.358 - 3.740 uIU/M L 08/22 4:11 AM T [facility] Not Available Not Available 08/28/2024 02:22:24 08/23/19 25 08/22/2024 Creat ine kinas e [Enzy matic activ ity/v olume ] in Serum or Plasm a creatine kinase [enzymatic activity/vol ume] in serum or plasma 637 U/L low: 26U/Lh igh: 192U/L high CPK 637 (H) 26 - 192 U/L 08/22 4:11 AM T [facility] Not Available Not Available 08/28/2024 02:22:24 08/23/19 25 08/22/2024 Creat ine kinas e [Enzy matic activ ity/v olume ] in Serum or Plasm a interpretati on and review of laboratory results Abnorm al Not Available Not Available 02:22:24 08/23/19 25 08/22/2024 Basic metab olic 2000 panel - Serum or Plasm a sodium [moles/volum e] in serum or plasma 141 text: 136 - 145 mmol/L SODIU M S/P/B 141 136 - 145 MMOL/ L 08/22 4:11 AM [facility] Not Available Not Available 08/28/2024 02:22:24 08/23/19 25 08/22/2024 Basic metab olic 1999 panel - Serum or Plasm a potassium [moles/volum e] in serum or plasma 3.2 text: 3.5 - 5.1 mmol/L low POTAS SIUM S/P/B 3.2 (L) 3.5 - 5.1 MMOL/ L 08/22 4:[address] [facility] Not Available Not Available 08/28/2024 02:22:24 08/23/19 25 08/22/2024 Basic metab olic 1999 panel - Serum or Plasm a chloride [moles/volum e] in serum or plasma 106 text: 97 - 115 mmol/L CHLOR CORDELL S/P/B 106 97 - 115 MMOL/ L 08/22 4:[address] [facility] Not Available Not Available 08/28/2024 02:22:24 08/23/19 25 08/22/2024 Basic metab olic 1999 panel - Serum or Plasm a carbon dioxide, total [moles/volum e] in serum or plasma 28.9 text: 21.0 - 32.0 mmol/L CO2 28.9 21.0 - 32.0 MMOL/ L 08/22 4:[address] [facility] Not Available Not Available 08/28/2024 02:22:24 08/23/19 25 08/22/2024 Basic metab olic 1999 panel - Serum or Plasm a glucose [mass/volume ] in serum or plasma 180 text: 74 - 106 mg/dL high GLUCO SE 180 (H) 74 - 106 MG/DL 08/22 4:[address] [facility] Not Available Not Available 08/28/2024 02:22:24 08/23/19 25 08/22/2024 Basic metab olic 2000 panel - Serum or Plasm a urea nitrogen [mass/volume ] in serum or plasma 19 text: 7 - 18 mg/dL high BUN 19 (H) 7 - 18 MG/DL 08/22 4:[address] [facility] Not Available Not Available 08/28/2024 02:22:24 08/23/19 25 08/22/2024 Basic metab olic 1999 panel - Serum or Plasm a creatinine [mass/volume ] in serum or plasma 1.84 text: 0.55 - 1.02 mg/dL high CREAT ININE S/P/B 1.84 (H) 0.55 - 1.02 MG/DL 08/22 4:[address] [facility] Not Available Not Available 08/28/2024 02:22:24 08/23/19 25 08/22/2024 Basic metab olic 2000 panel - Serum or Plasm a calcium [mass/volume ] in serum or plasma 7.8 text: 8.5 - 10.1 mg/dL low CALCI UM S/P/B 7.8 (L) 8.5 - 10.1 MG/DL 08/22 4:[address] [facility] Not Available Not Available 08/28/2024 02:22:24 08/23/19 25 08/22/2024 Basic metab olic 2000 panel - Serum or Plasm a anion gap in serum or plasma by calculation 6.1 text: 2.0 - 10.0 mmol/L ANION GAP 6.1 2.0 - 10.0 MMOL/ L 08/22 4:[address] [facility] Not Available Not Available 08/28/2024 02:22:24 08/23/19 25 08/22/2024 Basic metab olic 2000 panel - Serum or Plasm a osmolality of serum or plasma by calculated by sum of electrolytes 299 text: mOsm/k g OSMOL ALITY (CALC ) 299 MOSM/ KG 08/22 4:[address] [facility] Not Available Not Available 08/28/2024 02:22:24 08/23/19 25 08/22/2024 Basic metab olic 2000 panel - Serum or Plasm a glomerular filtration rate [volume rate/area] in serum, plasma or blood by creatinine-b ased formula (CKD-epi 2020)/1.73 sq M 26 text: >90 mL/min /1.73 M2 low GFR ESTIM ATE 26 (L) >90 ML/NC N/1.7 3 M2 08/22 4:11 AM CDT [facility] Not Available Not Available 08/28/2024 02:22:24 08/23/19 25 08/22/2024 Basic metab olic 2000 panel - Serum or Plasm a GFR notes GFR REFERE NCES: GFR NOTES GFR REFER ENCES : 08/22 4:11 AM CDT [facility] Not Available Not Available 08/28/2024 02:22:24 08/23/19 25 08/22/2024 Basic metab olic 2000 panel - Serum or Plasm a interpretati on and review of laboratory results Abnorm al Not Available Not Available 02:22:24 08/23/19 25 08/22/2024 CBC W Auto Diffe renti al panel - Blood leukocytes [#/volume] in blood by automated count 11.94 text: 4.00 - 10.80 x10'3/ uL high WBC 11.94 (H) 4.00 - 10.80 x10'3 /uL 08/22 3:35 AM CDT [facility] Not Available Not Available 08/28/2024 02:22:24 08/23/19 25 08/22/2024 CBC W Auto Diffe renti al panel - Blood erythrocytes [#/volume] in blood by automated count 3.83 text: 4.10 - 5.40 x10'6/ uL low RBC 3.83 (L) 4.10 - 5.40 x10'6 /uL 08/22 3:35 AM CDT [facility] Not Available Not Available 08/28/2024 02:22:24 08/23/19 25 08/22/2024 CBC W Auto Diffe renti al panel - Blood hemoglobin [mass/volume ] in blood 11.2 text: 12.0 - 16.0 g/dL low HGB 11.2 (L) 12.0 - 16.0 G/DL 08/22 3:35 AM CDT [facility] Not Available Not Available 08/28/2024 02:22:24 08/23/19 25 08/22/2024 CBC W Auto Diffe bert al panel - Blood hematocrit [volume fraction] of blood by calculation 35.6 % low: 36%hig h: 47% low HCT 35.6 (L) 36.0 - 47.0 % 08/22 3:35 AM T [facility] Not Available Not Available 08/28/2024 02:22:24 08/23/19 25 08/22/2024 CBC W Auto Diffe renti al panel - Blood MCV [entitic mean volume] in red blood cells 93 text: 78.0 - 100.0 fL MCV 93.0 78.0 - 100.0 FL 08/22 3:35 AM CDT [facility] Not Available Not Available 08/28/2024 02:22:24 08/23/19 25 08/22/2024 CBC W Auto Diffe bert al panel - Blood MCH [entitic mass] 29.2 pg low: 27pghi gh: 31pg MCH 29.2 27.0 - 31.0 PG 08/22 3:35 AM CDT [facility] Not Available Not Available 08/28/2024 02:22:24 08/23/19 25 08/22/2024 CBC W Auto Diffe bert al panel - Blood MCHC [entitic mass/volume] in red blood cells 31.5 text: 33.0 - 36.0 g/dL low MCHC 31.5 (L) 33.0 - 36.0 G/DL 08/22 3:35 AM CDT [facility] Not Available Not Available 08/28/2024 02:22:24 08/23/19 25 08/22/2024 CBC W Auto Diffe renti al panel - Blood RDW 12.6 % low: 11.5%h igh: 14.5% RDW 12.6 11.5 - 14.5 % 08/22 3:35 AM T [facility] Not Available Not Available 08/28/2024 02:22:24 08/23/19 25 08/22/2024 CBC W Auto Diffe renti al panel - Blood platelets [#/volume] in blood 234 text: 150 - 350 x10'3/ uL PLT 234 150 - 350 x10'3 /uL 08/22 3:35 AM CDT [facility] Not Available Not Available 08/28/2024 02:22:24 08/23/19 25 08/22/2024 CBC W Auto Diffe renti al panel - Blood platelet [entitic mean volume] in blood 9.4 text: 7.4 - 10.4 fL MPV 9.4 7.4 - 10.4 FL 08/22 3:35 AM CDT [facility] Not Available Not Available 08/28/2024 02:22:24 08/23/19 25 08/22/2024 CBC W Auto Diffe renti al panel - Blood differential cell count method - blood AUTOMA KATHI DIFFER ENTIAL DIFFE RENTI AL TYPE AUTOM ATED DIFFE RENTI AL 08/22 3:35 AM CDT [facility] Not Available Not Available 08/28/2024 02:22:24 08/23/19 25 08/22/2024 CBC W Auto Diffe renti al panel - Blood neutrophils/ leukocytes in blood by automated count 81 % SEG NEUTR OPHIL S 81.0 % 08/22 3:35 AM CDT [facility] Not Available Not Available 08/28/2024 02:22:24 08/23/19 25 08/22/2024 CBC W Auto Diffe renti al panel - Blood lymphocytes/ leukocytes in blood by automated count 10.4 % LYMPH OCYTE S 10.4 % 08/22 3:35 AM CDT [facility] Not Available Not Available 08/28/2024 02:22:24 08/23/19 25 08/22/2024 CBC W Auto Diffe renti al panel - Blood monocytes/le ukocytes in blood by automated count 7.6 % MONOC YTES 7.6 % 08/22 3:35 AM CDT [facility] Not Available Not Available 08/28/2024 02:22:24 08/23/19 25 08/22/2024 CBC W Auto Diffe renti al panel - Blood eosinophils/ leukocytes in blood by automated count 0.4 % EOSIN OPHIL S 0.4 % 08/22 3:35 AM CDT [facility] Not Available Not Available 08/28/2024 02:22:24 08/23/19 25 08/22/2024 CBC W Auto Diffe renti al panel - Blood basophils/le ukocytes in blood by automated count 0.3 % BASOP HILS 0.3 % 08/22 3:35 AM CDT [facility] Not Available Not Available 08/28/2024 02:22:24 08/23/19 25 08/22/2024 CBC W Auto Diffe renti al panel - Blood immature granulocytes /leukocytes in blood by automated count 0.3 % IMMAT URE GRANS % 0.3 % 08/22 3:35 AM CDT [facility] Not Available Not Available 08/28/2024 02:22:24 08/23/19 25 08/22/2024 CBC W Auto Diffe renti al panel - Blood neutrophils [#/volume] in blood 9.67 text: 1.60 - 8.30 x10'3/ uL high ABS. NEUTR OPHIL S 9.67 (H) 1.60 - 8.30 x10'3 /uL 08/22 3:35 AM CDT [facility] Not Available Not Available 08/28/2024 02:22:24 08/23/19 25 08/22/2024 CBC W Auto Diffe renti al panel - Blood lymphocytes [#/volume] in blood 1.24 text: 0.80 - 4.70 x10'3/ uL ABS. LYMPH OCYTE S 1.24 0.80 - 4.70 x10'3 /uL 08/22 3:35 AM CDT [facility] Not Available Not Available 08/28/2024 02:22:24 08/23/19 25 08/22/2024 CBC W Auto Diffe renti al panel - Blood monocytes [#/volume] in blood 0.91 text: 0.00 - 1.50 x10'3/ uL ABS. MONOC YTES 0.91 0.00 - 1.50 x10'3 /uL 08/22 3:35 AM CDT [facility] Not Available Not Available 08/28/2024 02:22:24 08/23/19 25 08/22/2024 CBC W Auto Diffe renti al panel - Blood eosinophils [#/volume] in blood 0.05 text: 0.00 - 0.40 x10'3/ uL ABS. EOSIN OPHIL S 0.05 0.00 - 0.40 x10'3 /uL 08/22 3:35 AM CDT [facility] Not Available Not Available 08/28/2024 02:22:24 08/23/19 25 08/22/2024 CBC W Auto Diffe renti al panel - Blood basophils [#/volume] in blood 0.03 text: 0.00 - 0.20 x10'3/ uL ABS. BASOP HILS 0.03 0.00 - 0.20 x10'3 /uL 08/22 3:35 AM CDT [facility] Not Available Not Available 08/28/2024 02:22:24 08/23/19 25 08/22/2024 CBC W Auto Diffe renti al panel - Blood immature granulocytes [#/volume] in blood 0.04 text: 0.00 - 0.03 x10'3/ uL high ABS. IMMAT URE GRANU LOCYT ES 0.04 (H) 0.00 - 0.03 x10'3 /uL 08/22 3:35 AM CDT [facility] Not Available Not Available 08/28/2024 02:22:24 08/23/19 25 08/22/2024 CBC W Auto Diffe renti al panel - Blood nucleated erythrocytes [#/volume] in blood 0 text: 0.00 - 0.01 x10'3/ uL ABS. NUCLE ATED RBC'S 0.00 0.00 - 0.01 x10'3 /uL 04/20 /2025 3:35 AM CDT [facility] Not Available Not Available 08/28/2024 02:22:24 08/23/1908/22/2024 CBC W Auto Diffe renti al panel - Blood nucleated erythrocytes /leukocytes [ratio] in blood 0 % NRBC % 0.0 % 08/22 3:35 AM CDT [facility] Not Available Not Available 08/28/2024 02:22:24 08/23/19 25 08/22/2024 CBC W Auto Diffe renti al panel - Blood interpretati on and review of laboratory results Abnorm al Not Available Not Available 02:22:24 08/23/19 25 08/22/2024 25-hy droxy vitam in D3 [Mass /volu me] in Serum or Plasm a 25-hydroxyvi tamin D3 [mass/volume ] in serum or plasma 24 text: 20.0 - 50.0 NG/mL VITAM IN D 25 HYDRO XY S/P/B 24.0 20.0 - 50.0 NG/ML 08/22 1:[address] [facility] Not Available Not Available 08/28/2024 02:22:24 08/23/19 25 08/22/2024 Calci um.io nized [Mass /volu me] in Serum or Plasm a calcium.ioni zed [mass/volume ] in serum or plasma 1.09 text: 1.15 - 1.33 mmol/L low CALCI UM IONIZ ED 1.09 (L) 1.15 - 1.33 MMOL/ L 08/22 12:[address] [facility] Not Available Not Available 08/28/2024 02:22:23 08/23/19 25 08/22/2024 Calci um.io nized [Mass /volu me] in Serum or Plasm a interpretati on and review of laboratory results Abnorm al Not Available Not Available 02:22:23 08/23/19 25 08/22/2024 Phosp hate [Mass /volu me] in Serum or Plasm a phosphate [mass/volume ] in serum or plasma 4.6 text: 2.5 - 4.9 mg/dL PHOSP HORUS 4.6 2.5 - 4.9 MG/DL 08/22 12:42 AM CDT [facility] Not Available Not Available 08/28/2024 02:22:23 08/23/19 25 08/22/2024 Magne sium [Mass /volu me] in Serum or Plasm a magnesium [mass/volume ] in serum or plasma 1.4 text: 1.6 - 2.6 mg/dL low MAGNE SIUM 1.4 (L) 1.6 - 2.6 MG/DL 08/22 12:42 AM CDT [facility] Not Available Not Available 08/28/2024 02:22:23 08/23/19 25 08/22/2024 Magne sium [Mass /volu me] in Serum or Plasm a interpretati on and review of laboratory results Abnorm al Not Available Not Available 02:22:23 08/23/19 25 08/22/2024 Compr ehens madisyn metab olic 1999 panel - Serum or Plasm a sodium [moles/volum e] in serum or plasma 139 text: 136 - 145 mmol/L SODIU M S/P/B 139 136 - 145 MMOL/ L 08/22 12:42 AM CDT [facility] Not Available Not Available 08/28/2024 02:22:23 08/23/19 25 08/22/2024 Compr ehens madisyn metab olic 1999 panel - Serum or Plasm a potassium [moles/volum e] in serum or plasma 3.6 text: 3.5 - 5.1 mmol/L POTAS SIUM S/P/B 3.6 3.5 - 5.1 MMOL/ L 08/22 12:42 AM CDT [facility] Not Available Not Available 08/28/2024 02:22:23 08/23/19 25 08/22/2024 Compr ehens madisyn metab olic 1999 panel - Serum or Plasm a chloride [moles/volum e] in serum or plasma 103 text: 97 - 115 mmol/L CHLOR CORDELL S/P/B 103 97 - 115 MMOL/ L 08/22 12:42 AM CDT [facility] Not Available Not Available 08/28/2024 02:22:23 08/23/19 25 08/22/2024 Compr ehens madisyn metab olic 1999 panel - Serum or Plasm a carbon dioxide, total [moles/volum e] in serum or plasma 31.2 text: 21.0 - 32.0 mmol/L CO2 31.2 21.0 - 32.0 MMOL/ L 08/22 12:42 AM CDT [facility] Not Available Not Available 08/28/2024 02:22:23 08/23/19 25 08/22/2024 Compr ehens madisyn metab olic 1999 panel - Serum or Plasm a glucose [mass/volume ] in serum or plasma 168 text: 74 - 106 mg/dL high GLUCO SE 168 (H) 74 - 106 MG/DL 08/22 12:42 AM T [facility] Not Available Not Available 08/28/2024 02:22:23 08/23/19 25 08/22/2024 Compr ehens madisyn metab olic 1999 panel - Serum or Plasm a urea nitrogen [mass/volume ] in serum or plasma 19 text: 7 - 18 mg/dL high BUN 19 (H) 7 - 18 MG/DL 08/22 12:42 AM CDT [facility] Not Available Not Available 08/28/2024 02:22:23 08/23/19 25 08/22/2024 Compr ehens madisyn metab olic 1999 panel - Serum or Plasm a creatinine [mass/volume ] in serum or plasma 1.82 text: 0.55 - 1.02 mg/dL high CREAT ININE S/P/B 1.82 (H) 0.55 - 1.02 MG/DL 08/22 12:42 AM T [facility] Not Available Not Available 08/28/2024 02:22:23 08/23/19 25 08/22/2024 Compr ehens madisyn metab olic 2000 panel - Serum or Plasm a calcium [mass/volume ] in serum or plasma 8.4 text: 8.5 - 10.1 mg/dL low CALCI UM S/P/B 8.4 (L) 8.5 - 10.1 MG/DL 08/22 12:42 AM CDT [facility] Not Available Not Available 08/28/2024 02:22:23 08/23/19 25 08/22/[address] [facility] 1999 panel - Serum or Plasm a bilirubin.to bita [mass/volume ] in serum or plasma 0.9 text: 0.2 - 1.0 mg/dL BILIR UBIN TOTAL S/P/B 0.9 0.2 - 1.0 MG/DL 08/22 12:42 AM CDT [facility] Not Available Not Available 08/28/2024 02:22:23 08/23/19 25 08/22/2024 Compr ens madisyn metab ic 1999 panel - Serum or Plasm a alkaline phosphatase [enzymatic activity/vol ume] in serum or plasma 65 U/L low: 55U/Lh igh: 142U/L ALKAL INE PHOSP HATAS E S/P/B 65 55 - 142 U/L 08/22 12:42 AM CDT [facility] Not Available Not Available 08/28/2024 02:22:23 08/23/19 25 08/22/2024 Compr ens madisyn metab olic 1999 panel - Serum or Plasm a aspartate aminotransfe rase [enzymatic activity/vol ume] in serum or plasma 41 U/L low: 15U/Lh igh: 37U/L high AST 41 (H) 15 - 37 U/L 08/22 12:42 AM CDT [facility] Not Available Not Available 08/28/2024 02:22:23 08/23/19 25 08/22/2024 Compr ehens madisyn metab olic 1999 panel - Serum or Plasm a alanine aminotransfe rase [enzymatic activity/vol ume] in serum or plasma 23 U/L low: 13U/Lh igh: 56U/L ALT 23 13 - 56 U/L 08/22 12:[address] [facility] Not Available Not Available 08/28/2024 02:22:23 08/23/19 25 08/22/2024 Compr manetchens madisyn metab olic 2000 panel - Serum or Plasm a protein [mass/volume ] in serum or plasma 5.7 text: 6.4 - 8.2 g/dL low TOTAL PROTE IN S/P/B 5.7 (L) 6.4 - 8.2 G/DL 08/22 12:[address] [facility] Not Available Not Available 08/28/2024 02:22:23 08/23/19 25 08/22/2024 Compr manetchens madisyn Tripeese olic 2000 panel - Serum or Plasm a albumin [mass/volume ] in serum or plasma 2.6 text: 3.4 - 5.0 g/dL low ALBUM IN S/P/B 2.6 (L) 3.4 - 5.0 G/DL 08/22 12:42 AM T [facility] Not Available Not Available 08/28/2024 02:22:23 08/23/19 25 08/22/2024 Compr manetchens madisyn Tripeese olic 2000 panel - Serum or Plasm a anion gap in serum or plasma by calculation 4.8 text: 2.0 - 10.0 mmol/L ANION GAP 4.8 2.0 - 10.0 MMOL/ L 08/22 12:[address] [facility] Not Available Not Available 08/28/2024 02:22:23 08/23/19 25 08/22/2024 Compr manetchens madisyn Tripeese olic 2000 panel - Serum or Plasm a osmolality of serum or plasma by calculated by sum of electrolytes 294 text: mOsm/k g OSMOL ALITY (CALC ) 294 MOSM/ KG 08/22 12:[address] [facility] Not Available Not Available 08/28/2024 02:22:23 08/23/19 25 08/22/2024 Compr manetchens madisyn metab olic 2000 panel - Serum or Plasm a glomerular filtration rate [volume rate/area] in serum, plasma or blood by creatinine-b ased formula (CKD-epi 2020)/1.73 sq M 26 text: >90 mL/min /1.73 M2 low GFR ESTIM ATE 26 (L) >90 ML/NC N/1.7 3 M2 08/22 12:42 AM CDT [facility] Not Available Not Available 08/28/2024 02:22:23 08/23/1908/22/2024 Compr ehens madisyn metab olic 2000 panel - Serum or Plasm a GFR notes GFR REFERE NCES: GFR NOTES GFR REFER ENCES : 08/22 12:42 AM CDT [facility] Not Available Not Available 08/28/2024 02:22:23 08/23/19 25 08/22/2024 Compr ehens madisyn metab olic 2000 panel - Serum or Plasm a interpretati on and review of laboratory results Abnorm al Not Available Not Available 02:22:23 08/23/19 25 08/22/2024 CBC W Auto Diffe renti al panel - Blood leukocytes [#/volume] in blood by automated count 11.58 text: 4.00 - 10.80 x10'3/ uL high WBC 11.58 (H) 4.00 - 10.80 x10'3 /uL 08/22 12:13 AM T [facility] Not Available Not Available 08/28/2024 02:22:23 08/23/1908/22/2024 CBC W Auto Diffe renti al panel - Blood erythrocytes [#/volume] in blood by automated count 4.08 text: 4.10 - 5.40 x10'6/ uL low RBC 4.08 (L) 4.10 - 5.40 x10'6 /uL 08/22 12:[address] [facility] Not Available Not Available 08/28/2024 02:22:23 08/23/19 25 08/22/2024 CBC W Auto Diffe renti al panel - Blood hemoglobin [mass/volume ] in blood 11.9 text: 12.0 - 16.0 g/dL low HGB 11.9 (L) 12.0 - 16.0 G/DL 08/22 12:13 AM T [facility] Not Available Not Available 08/28/2024 02:22:23 08/23/19 25 08/22/2024 CBC W Auto Diffe renti al panel - Blood hematocrit [volume fraction] of blood by calculation 37.8 % low: 36%hig h: 47% HCT 37.8 36.0 - 47.0 % 08/22 12:13 AM T [facility] Not Available Not Available 08/28/2024 02:22:23 08/23/19 25 08/22/2024 CBC W Auto Diffe renti al panel - Blood MCV [entitic mean volume] in red blood cells 92.6 text: 78.0 - 100.0 fL MCV 92.6 78.0 - 100.0 FL 08/22 12:13 AM T [facility] Not Available Not Available 08/28/2024 02:22:23 08/23/19 25 08/22/2024 CBC W Auto Diffe renti al panel - Blood MCH [entitic mass] 29.2 pg low: 27pghi gh: 31pg MCH 29.2 27.0 - 31.0 PG 08/22 12:13 AM T [facility] Not Available Not Available 08/28/2024 02:22:23 08/23/19 25 08/22/2024 CBC W Auto Diffe renti al panel - Blood MCHC [entitic mass/volume] in red blood cells 31.5 text: 33.0 - 36.0 g/dL low MCHC 31.5 (L) 33.0 - 36.0 G/DL 08/22 12:[address] [facility] Not Available Not Available 08/28/2024 02:22:23 08/23/19 25 08/22/2024 CBC W Auto Diffe renti al panel - Blood RDW 12.5 % low: 11.5%h igh: 14.5% RDW 12.5 11.5 - 14.5 % 08/22 12:13 AM T [facility] Not Available Not Available 08/28/2024 02:22:23 08/23/19 25 08/22/2024 CBC W Auto Diffe renti al panel - Blood platelets [#/volume] in blood 245 text: 150 - 350 x10'3/ uL PLT 245 150 - 350 x10'3 /uL 08/22 12:13 AM T [facility] Not Available Not Available 08/28/2024 02:22:23 08/23/19 25 08/22/2024 CBC W Auto Diffe renti al panel - Blood platelet [entitic mean volume] in blood 9.2 text: 7.4 - 10.4 fL MPV 9.2 7.4 - 10.4 FL 08/22 12:13 AM T [facility] Not Available Not Available 08/28/2024 02:22:23 08/23/19 25 08/22/2024 CBC W Auto Diffe renti al panel - Blood differential cell count method - blood AUTOMA KATHI DIFFER ENTIAL DIFFE RENTI AL TYPE AUTOM ATED DIFFE RENTI AL 08/22 12:13 AM T [facility] Not Available Not Available 08/28/2024 02:22:23 08/23/19 25 08/22/2024 CBC W Auto Diffe renti al panel - Blood neutrophils/ leukocytes in blood by automated count 79.9 % SEG NEUTR OPHIL S 79.9 % 08/22 12:13 AM CDT [facility] Not Available Not Available 08/28/2024 02:22:23 08/23/19 25 08/22/2024 CBC W Auto Diffe renti al panel - Blood lymphocytes/ leukocytes in blood by automated count 11.4 % LYMPH OCYTE S 11.4 % 08/22 12:13 AM T [facility] Not Available Not Available 08/28/2024 02:22:23 08/23/19 25 08/22/2024 CBC W Auto Diffe renti al panel - Blood monocytes/le ukocytes in blood by automated count 7.4 % MONOC YTES 7.4 % 08/22 12:[address] [facility] Not Available Not Available 08/28/2024 02:22:23 08/23/19 25 08/22/2024 CBC W Auto Diffe renti al panel - Blood eosinophils/ leukocytes in blood by automated count 0.6 % EOSIN OPHIL S 0.6 % 08/22 12:13 AM CDT [facility] Not Available Not Available 08/28/2024 02:22:23 08/23/19 25 08/22/2024 CBC W Auto Diffe renti al panel - Blood basophils/le ukocytes in blood by automated count 0.3 % BASOP HILS 0.3 % 08/22 12:[address] [facility] Not Available Not Available 08/28/2024 02:22:23 08/23/19 25 08/22/2024 CBC W Auto Diffe renti al panel - Blood immature granulocytes /leukocytes in blood by automated count 0.4 % IMMAT URE GRANS % 0.4 % 08/22 12:[address] [facility] Not Available Not Available 08/28/2024 02:22:23 08/23/19 25 08/22/2024 CBC W Auto Diffe renti al panel - Blood neutrophils [#/volume] in blood 9.24 text: 1.60 - 8.30 x10'3/ uL high ABS. NEUTR OPHIL S 9.24 (H) 1.60 - 8.30 x10'3 /uL 08/22 12:[address] [facility] Not Available Not Available 08/28/2024 02:22:23 08/23/19 25 08/22/2024 CBC W Auto Diffe renti al panel - Blood lymphocytes [#/volume] in blood 1.32 text: 0.80 - 4.70 x10'3/ uL ABS. LYMPH OCYTE S 1.32 0.80 - 4.70 x10'3 /uL 08/22 12:13 AM CDT [facility] Not Available Not Available 08/28/2024 02:22:23 08/23/19 25 08/22/2024 CBC W Auto Diffe renti al panel - Blood monocytes [#/volume] in blood 0.86 text: 0.00 - 1.50 x10'3/ uL ABS. MONOC YTES 0.86 0.00 - 1.50 x10'3 /uL 08/22 12:13 AM CDT [facility] Not Available Not Available 08/28/2024 02:22:23 08/23/19 25 08/22/2024 CBC W Auto Diffe renti al panel - Blood eosinophils [#/volume] in blood 0.07 text: 0.00 - 0.40 x10'3/ uL ABS. EOSIN OPHIL S 0.07 0.00 - 0.40 x10'3 /uL 08/22 12:13 AM CDT [facility] Not Available Not Available 08/28/2024 02:22:23 08/23/19 25 08/22/2024 CBC W Auto Diffe renti al panel - Blood basophils [#/volume] in blood 0.04 text: 0.00 - 0.20 x10'3/ uL ABS. BASOP HILS 0.04 0.00 - 0.20 x10'3 /uL 08/22 12:13 AM T [facility] Not Available Not Available 08/28/2024 02:22:23 08/23/19 25 08/22/2024 CBC W Auto Diffe renti al panel - Blood immature granulocytes [#/volume] in blood 0.05 text: 0.00 - 0.03 x10'3/ uL high ABS. IMMAT URE GRANU LOCYT ES 0.05 (H) 0.00 - 0.03 x10'3 /uL 08/22 12:13 AM T [facility] Not Available Not Available 08/28/2024 02:22:23 08/23/19 25 08/22/2024 CBC W Auto Diffe renti al panel - Blood nucleated erythrocytes [#/volume] in blood 0 text: 0.00 - 0.01 x10'3/ uL ABS. NUCLE ATED RBC'S 0.00 0.00 - 0.01 x10'3 /uL 08/22 12:13 AM CDT [facility] Not Available Not Available 08/28/2024 02:22:23 08/23/19 25 08/22/2024 CBC W Auto Difftal house panel - Blood nucleated erythrocytes /leukocytes [ratio] in blood 0 % NRBC % 0.0 % 08/22 12:13 AM T [facility] Not Available Not Available 08/28/2024 02:22:23 08/23/19 25 08/22/2024 CBC W Auto Abiel house panel - Blood interpretati on and review of laboratory results [facility] Not Available Not Available 02:22:23 08/24/19 25 08/23/2024 CBC W Auto Abiel house panel - Blood leukocytes [#/volume] in blood by automated count 13.99 text: 4.00 - 10.80 x10'3/ uL high WBC 13.99 (H) 4.00 - 10.80 x10'3 /uL 08/23 3:56 AM T [facility] Not Available Not Available 08/28/2024 02:22:24 08/24/19 25 08/23/2024 CBC W Auto Difftal house panel - Blood erythrocytes [#/volume] in blood by automated count 3.46 text: 4.10 - 5.40 x10'6/ uL low RBC 3.46 (L) 4.10 - 5.40 x10'6 /uL 08/23 3:56 AM CDT [facility] Not Available Not Available 08/28/2024 02:22:24 08/24/19 25 08/23/2024 CBC W Auto Abiel house panel - Blood hemoglobin [mass/volume ] in blood 10.1 text: 12.0 - 16.0 g/dL low HGB 10.1 (L) 12.0 - 16.0 G/DL 08/23 3:56 AM CDT [facility] Not Available Not Available 08/28/2024 02:22:24 08/24/19 25 08/23/2024 CBC W Auto Diffe renti al panel - Blood hematocrit [volume fraction] of blood by calculation 32.7 % low: 36%hig h: 47% low HCT 32.7 (L) 36.0 - 47.0 % 08/23 3:56 AM CDT [facility] Not Available Not Available 08/28/2024 02:22:24 08/24/19 25 08/23/2024 CBC W Auto Diffe renti al panel - Blood MCV [entitic mean volume] in red blood cells 94.5 text: 78.0 - 100.0 fL MCV 94.5 78.0 - 100.0 FL 08/23 3:56 AM CDT [facility] Not Available Not Available 08/28/2024 02:22:24 08/24/19 25 08/23/2024 CBC W Auto Diffe renti al panel - Blood MCH [entitic mass] 29.2 pg low: 27pghi gh: 31pg MCH 29.2 27.0 - 31.0 PG 08/23 3:56 AM CDT [facility] Not Available Not Available 08/28/2024 02:22:24 08/24/19 25 08/23/2024 CBC W Auto Diffe renti al panel - Blood MCHC [entitic mass/volume] in red blood cells 30.9 text: 33.0 - 36.0 g/dL low MCHC 30.9 (L) 33.0 - 36.0 G/DL 08/23 3:56 AM CDT [facility] Not Available Not Available 08/28/2024 02:22:24 08/24/19 25 08/23/2024 CBC W Auto Diffe renti al panel - Blood RDW 12.8 % low: 11.5%h igh: 14.5% RDW 12.8 11.5 - 14.5 % 08/23 3:56 AM CDT [facility] Not Available Not Available 08/28/2024 02:22:24 08/24/19 25 08/23/2024 CBC W Auto Diffe renti al panel - Blood platelets [#/volume] in blood 198 text: 150 - 350 x10'3/ uL PLT 198 150 - 350 x10'3 /uL 08/23 3:56 AM CDT [facility] Not Available Not Available 08/28/2024 02:22:24 08/24/19 25 08/23/2024 CBC W Auto Diffe renti al panel - Blood platelet [entitic mean volume] in blood 9.3 text: 7.4 - 10.4 fL MPV 9.3 7.4 - 10.4 FL 08/23 3:56 AM CDT [facility] Not Available Not Available 08/28/2024 02:22:24 08/24/19 25 08/23/2024 CBC W Auto Diffe renti al panel - Blood differential cell count method - blood AUTOMA KATHI DIFFER ENTIAL DIFFE RENTI AL TYPE AUTOM ATED DIFFE RENTI AL 08/23 3:56 AM CDT [facility] Not Available Not Available 08/28/2024 02:22:24 08/24/19 25 08/23/2024 CBC W Auto Diffe renti al panel - Blood neutrophils/ leukocytes in blood by automated count 80.9 % SEG NEUTR OPHIL S 80.9 % 08/23 3:56 AM CDT [facility] Not Available Not Available 08/28/2024 02:22:24 08/24/19 25 08/23/2024 CBC W Auto Diffe renti al panel - Blood lymphocytes/ leukocytes in blood by automated count 10.9 % LYMPH OCYTE S 10.9 % 08/23 3:56 AM CDT [facility] Not Available Not Available 08/28/2024 02:22:24 08/24/19 25 08/23/2024 CBC W Auto Diffe renti al panel - Blood monocytes/le ukocytes in blood by automated count 6.4 % MONOC YTES 6.4 % 08/23 3:56 AM CDT [facility] Not Available Not Available 08/28/2024 02:22:24 08/24/19 25 08/23/2024 CBC W Auto Diffe renti al panel - Blood eosinophils/ leukocytes in blood by automated count 1 % EOSIN OPHIL S 1.0 % 08/23 3:56 AM CDT [facility] Not Available Not Available 08/28/2024 02:22:24 08/24/19 25 08/23/2024 CBC W Auto Diffe renti al panel - Blood basophils/le ukocytes in blood by automated count 0.3 % BASOP HILS 0.3 % 08/23 3:[address] [facility] Not Available Not Available 08/28/2024 02:22:24 08/24/19 25 08/23/2024 CBC W Auto Diffe renti al panel - Blood immature granulocytes /leukocytes in blood by automated count 0.5 % IMMAT URE GRANS % 0.5 % 08/23 3:[address] [facility] Not Available Not Available 08/28/2024 02:22:24 08/24/19 25 08/23/2024 CBC W Auto Diffe renti al panel - Blood neutrophils [#/volume] in blood 11.33 text: 1.60 - 8.30 x10'3/ uL high ABS. NEUTR OPHIL S 11.33 (H) 1.60 - 8.30 x10'3 /uL 08/23 3:56 AM CDT [facility] Not Available Not Available 08/28/2024 02:22:24 08/24/19 25 08/23/2024 CBC W Auto Diffe renti al panel - Blood lymphocytes [#/volume] in blood 1.52 text: 0.80 - 4.70 x10'3/ uL ABS. LYMPH OCYTE S 1.52 0.80 - 4.70 x10'3 /uL 08/23 3:56 AM CDT [facility] Not Available Not Available 08/28/2024 02:22:24 08/24/19 25 08/23/2024 CBC W Auto Diffe renti al panel - Blood monocytes [#/volume] in blood 0.89 text: 0.00 - 1.50 x10'3/ uL ABS. MONOC YTES 0.89 0.00 - 1.50 x10'3 /uL 08/23 3:56 AM CDT [facility] Not Available Not Available 08/28/2024 02:22:24 08/24/19 25 08/23/2024 CBC W Auto Diffe renti al panel - Blood eosinophils [#/volume] in blood 0.14 text: 0.00 - 0.40 x10'3/ uL ABS. EOSIN OPHIL S 0.14 0.00 - 0.40 x10'3 /uL 08/23 3:56 AM CDT [facility] Not Available Not Available 08/28/2024 02:22:24 08/24/19 25 08/23/2024 CBC W Auto Diffe renti al panel - Blood basophils [#/volume] in blood 0.04 text: 0.00 - 0.20 x10'3/ uL ABS. BASOP HILS 0.04 0.00 - 0.20 x10'3 /uL 08/23 3:56 AM CDT [facility] Not Available Not Available 08/28/2024 02:22:24 08/24/19 25 08/23/2024 CBC W Auto Diffe renti al panel - Blood immature granulocytes [#/volume] in blood 0.07 text: 0.00 - 0.03 x10'3/ uL high ABS. IMMAT URE GRANU LOCYT ES 0.07 (H) 0.00 - 0.03 x10'3 /uL 08/23 3:56 AM CDT [facility] Not Available Not Available 08/28/2024 02:22:24 08/24/19 25 08/23/2024 CBC W Auto Diffe renti al panel - Blood nucleated erythrocytes [#/volume] in blood 0 text: 0.00 - 0.01 x10'3/ uL ABS. NUCLE ATED RBC'S 0.00 0.00 - 0.01 x10'3 /uL 08/23 3:56 AM CDT [facility] Not Available Not Available 08/28/2024 02:22:24 08/24/19 25 08/23/2024 CBC W Auto Diffe renti al panel - Blood nucleated erythrocytes /leukocytes [ratio] in blood 0 % NRBC % 0.0 % 08/23 3:56 AM CDT [facility] Not Available Not Available 08/28/2024 02:22:24 08/24/19 25 08/23/2024 CBC W Auto Diffe renti al panel - Blood interpretati on and review of laboratory results Abnorm al Not Available Not Available 02:22:24 08/24/19 25 08/23/2024 Magne sium [Mass /volu me] in Serum or Plasm a magnesium [mass/volume ] in serum or plasma 2.9 text: 1.6 - 2.6 mg/dL high MAGNE SIUM 2.9 (H) 1.6 - 2.6 MG/DL 08/23 3:37 AM CDT [facility] Not Available Not Available 08/28/2024 02:22:24 08/24/19 25 08/23/2024 Magne sium [Mass /volu me] in Serum or Plasm a interpretati on and review of laboratory results Abnorm al Not Available Not Available 02:22:24 08/24/19 25 08/23/2024 Basic metab olic 1999 panel - Serum or Plasm a sodium [moles/volum e] in serum or plasma 136 text: 136 - 145 mmol/L SODIU M S/P/B 136 136 - 145 MMOL/ L 08/23 3:37 AM T [facility] Not Available Not Available 08/28/2024 02:22:24 08/24/19 25 08/23/2024 Basic metab olic 2000 panel - Serum or Plasm a potassium [moles/volum e] in serum or plasma 4.1 text: 3.5 - 5.1 mmol/L POTAS SIUM S/P/B 4.1 3.5 - 5.1 MMOL/ L 08/23 3:[address] [facility] Not Available Not Available 08/28/2024 02:22:24 08/24/19 25 08/23/2024 Basic metab olic 1999 panel - Serum or Plasm a chloride [moles/volum e] in serum or plasma 106 text: 97 - 115 mmol/L CHLOR CRODELL S/P/B 106 97 - 115 MMOL/ L 08/23 3:37 AM T [facility] Not Available Not Available 08/28/2024 02:22:24 08/24/19 25 08/23/2024 Basic metab olic 1999 panel - Serum or Plasm a carbon dioxide, total [moles/volum e] in serum or plasma 27.6 text: 21.0 - 32.0 mmol/L CO2 27.6 21.0 - 32.0 MMOL/ L 08/23 3:[address] [facility] Not Available Not Available 08/28/2024 02:22:24 08/24/19 25 08/23/2024 Basic metab olic 1999 panel - Serum or Plasm a glucose [mass/volume ] in serum or plasma 180 text: 74 - 106 mg/dL high GLUCO SE 180 (H) 74 - 106 MG/DL 08/23 3:[address] [facility] Not Available Not Available 08/28/2024 02:22:24 08/24/19 25 08/23/2024 Basic metab olic 2000 panel - Serum or Plasm a urea nitrogen [mass/volume ] in serum or plasma 30 text: 7 - 18 mg/dL high BUN 30 (H) 7 - 18 MG/DL 08/23 3:[address] [facility] Not Available Not Available 08/28/2024 02:22:24 08/24/19 25 08/23/2024 Basic metab olic 2000 panel - Serum or Plasm a creatinine [mass/volume ] in serum or plasma 2.47 text: 0.55 - 1.02 mg/dL high CREAT ININE S/P/B 2.47 (H) 0.55 - 1.02 MG/DL 08/23 3:37 AM T [facility] Not Available Not Available 08/28/2024 02:22:24 08/24/19 25 08/23/2024 Basic metab olic 2000 panel - Serum or Plasm a calcium [mass/volume ] in serum or plasma 8.2 text: 8.5 - 10.1 mg/dL low CALCI UM S/P/B 8.2 (L) 8.5 - 10.1 MG/DL 08/23 3:37 AM T [facility] Not Available Not Available 08/28/2024 02:22:24 08/24/1908/23/2024 Basic metab olic 2000 panel - Serum or Plasm a anion gap in serum or plasma by calculation 2.4 text: 2.0 - 10.0 mmol/L ANION GAP 2.4 2.0 - 10.0 MMOL/ L 08/23 3:37 AM T [facility] Not Available Not Available 08/28/2024 02:22:24 08/24/1908/23/2024 Basic metab olic 2000 panel - Serum or Plasm a osmolality of serum or plasma by calculated by sum of electrolytes 293 text: mOsm/k g OSMOL ALITY (CALC ) 293 MOSM/ KG 08/23 3:37 AM T [facility] Not Available Not Available 08/28/2024 02:22:24 08/24/1908/23/2024 Basic metab olic 2000 panel - Serum or Plasm a glomerular filtration rate [volume rate/area] in serum, plasma or blood by creatinine-b ased formula (CKD-epi 2020)/1.73 sq M 18 text: >90 mL/min /1.73 M2 low GFR ESTIM ATE 18 (L) >90 ML/NC N/1.7 3 M2 08/23 3:37 AM T [facility] Not Available Not Available 08/28/2024 02:22:24 08/24/19 25 08/23/2024 Basic metab olic 2000 panel - Serum or Plasm a GFR notes GFR REFERE NCES: GFR NOTES GFR REFER ENCES : 08/23 3:37 AM CDT [facility] Not Available Not Available 08/28/2024 02:22:24 08/24/19 25 08/23/2024 Basic metab olic 2000 panel - Serum or Plasm a interpretati on and review of laboratory results Abnorm al Not Available Not Available 02:22:24 08/24/19 25 08/23/2024 Creat ine kinas e [Enzy matic activ ity/v olume ] in Serum or Plasm a creatine kinase [enzymatic activity/vol ume] in serum or plasma 798 U/L low: 26U/Lh igh: 192U/L high CPK 798 (H) 26 - 192 U/L 08/23 3:37 AM CDT [facility] Not Available Not Available 08/28/2024 02:22:24 08/24/19 25 08/23/2024 Creat ine kinas e [Enzy matic activ ity/v olume ] in Serum or Plasm a interpretati on and review of laboratory results Abnorm al Not Available Not Available 02:22:24 08/25/19 25 08/24/2024 CBC panel - Blood by Autom ated count leukocytes [#/volume] in blood by automated count 9.17 text: 4.00 - 10.80 x10'3/ uL WBC 9.17 4.00 - 10.80 x10'3 /uL 08/24 3:08 AM CDT [facility] Not Available Not Available 08/28/2024 02:22:24 08/25/19 25 08/24/2024 CBC panel - Blood by Autom ated count erythrocytes [#/volume] in blood by automated count 3.38 text: 4.10 - 5.40 x10'6/ uL low RBC 3.38 (L) 4.10 - 5.40 x10'6 /uL 08/24 3:08 AM CDT [facility] Not Available Not Available 08/28/2024 02:22:24 08/25/19 25 08/24/2024 CBC panel - Blood by Autom ated count hemoglobin [mass/volume ] in blood 10 text: 12.0 - 16.0 g/dL low HGB 10.0 (L) 12.0 - 16.0 G/DL 08/24 3:[address] [facility] Not Available Not Available 08/28/2024 02:22:24 08/25/19 25 08/24/2024 CBC panel - Blood by Autom ated count hematocrit [volume fraction] of blood by calculation 32.4 % low: 36%hig h: 47% low HCT 32.4 (L) 36.0 - 47.0 % 08/24 3:[address] [facility] Not Available Not Available 08/28/2024 02:22:24 08/25/19 25 08/24/2024 CBC panel - Blood by Autom ated count MCV [entitic mean volume] in red blood cells 95.9 text: 78.0 - 100.0 fL MCV 95.9 78.0 - 100.0 FL 08/24 3:08 AM T [facility] Not Available Not Available 08/28/2024 02:22:24 08/25/19 25 08/24/2024 CBC panel - Blood by Autom ated count MCH [entitic mass] 29.6 pg low: 27pghi gh: 31pg MCH 29.6 27.0 - 31.0 PG 08/24 3:08 AM T [facility] Not Available Not Available 08/28/2024 02:22:24 08/25/19 25 08/24/2024 CBC panel - Blood by Autom ated count MCHC [entitic mass/volume] in red blood cells 30.9 text: 33.0 - 36.0 g/dL low MCHC 30.9 (L) 33.0 - 36.0 G/DL 08/24 3:08 AM T [facility] Not Available Not Available 08/28/2024 02:22:24 08/25/19 25 08/24/2024 CBC panel - Blood by Autom ated count RDW 12.7 % low: 11.5%h igh: 14.5% RDW 12.7 11.5 - 14.5 % 08/24 3:08 AM CDT [facility] Not Available Not Available 08/28/2024 02:22:24 08/25/19 25 08/24/2024 CBC panel - Blood by Autom ated count platelets [#/volume] in blood 191 text: 150 - 350 x10'3/ uL PLT 191 150 - 350 x10'3 /uL 08/24 3:08 AM CDT [facility] Not Available Not Available 08/28/2024 02:22:24 08/25/19 25 08/24/2024 CBC panel - Blood by Autom ated count platelet [entitic mean volume] in blood 9.5 text: 7.4 - 10.4 fL MPV 9.5 7.4 - 10.4 FL 08/24 3:08 AM CDT [facility] Not Available Not Available 08/28/2024 02:22:24 08/25/19 25 08/24/2024 CBC panel - Blood by Autom ated count interpretati on and review of laboratory results Abnorm al Not Available Not Available 02:22:24 08/25/19 25 08/24/2024 Basic metab olic 2000 panel - Serum or Plasm a sodium [moles/volum e] in serum or plasma 138 text: 136 - 145 mmol/L SODIU M S/P/B 138 136 - 145 MMOL/ L 08/24 3:54 AM CDT [facility] Not Available Not Available 08/28/2024 02:22:24 08/25/19 25 08/24/2024 Basic metab olic 2000 panel - Serum or Plasm a potassium [moles/volum e] in serum or plasma 4.2 text: 3.5 - 5.1 mmol/L POTAS SIUM S/P/B 4.2 3.5 - 5.1 MMOL/ L 08/24 3:54 AM CDT [facility] Not Available Not Available 08/28/2024 02:22:24 08/25/19 25 08/24/2024 Basic metab olic 1999 panel - Serum or Plasm a chloride [moles/volum e] in serum or plasma 106 text: 97 - 115 mmol/L CHLOR CORDELL S/P/B 106 97 - 115 MMOL/ L 08/24 3:54 AM CDT [facility] Not Available Not Available 08/28/2024 02:22:24 08/25/19 25 08/24/2024 Basic metab olic 1999 panel - Serum or Plasm a carbon dioxide, total [moles/volum e] in serum or plasma 25.2 text: 21.0 - 32.0 mmol/L CO2 25.2 21.0 - 32.0 MMOL/ L 08/24 3:54 AM T [facility] Not Available Not Available 08/28/2024 02:22:24 08/25/19 25 08/24/2024 Basic metab olic 1999 panel - Serum or Plasm a glucose [mass/volume ] in serum or plasma 142 text: 74 - 106 mg/dL high GLUCO SE 142 (H) 74 - 106 MG/DL 08/24 3:54 AM T [facility] Not Available Not Available 08/28/2024 02:22:24 08/25/19 25 08/24/2024 Basic metab olic 1999 panel - Serum or Plasm a urea nitrogen [mass/volume ] in serum or plasma 30 text: 7 - 18 mg/dL high BUN 30 (H) 7 - 18 MG/DL 08/24 3:54 AM T [facility] Not Available Not Available 08/28/2024 02:22:24 08/25/19 25 08/24/2024 Basic metab olic 2000 panel - Serum or Plasm a creatinine [mass/volume ] in serum or plasma 2.22 text: 0.55 - 1.02 mg/dL high CREAT ININE S/P/B 2.22 (H) 0.55 - 1.02 MG/DL 08/24 3:54 AM T [facility] Not Available Not Available 08/28/2024 02:22:24 08/25/19 25 08/24/2024 Basic metab olic 1999 panel - Serum or Plasm a calcium [mass/volume ] in serum or plasma 7.6 text: 8.5 - 10.1 mg/dL low CALCI UM S/P/B 7.6 (L) 8.5 - 10.1 MG/DL 08/24 3:54 AM CDT [facility] Not Available Not Available 08/28/2024 02:22:24 08/25/19 25 08/24/2024 Basic metab olic 1999 panel - Serum or Plasm a anion gap in serum or plasma by calculation 6.8 text: 2.0 - 10.0 mmol/L ANION GAP 6.8 2.0 - 10.0 MMOL/ L 08/24 3:54 AM T [facility] Not Available Not Available 08/28/2024 02:22:24 08/25/19 25 08/24/2024 Basic metab olic 2000 panel - Serum or Plasm a osmolality of serum or plasma by calculated by sum of electrolytes 295 text: mOsm/k g OSMOL ALITY (CALC ) 295 MOSM/ KG 08/24 3:[address] [facility] Not Available Not Available 08/28/2024 02:22:24 08/25/19 25 08/24/2024 Basic metab olic 2000 panel - Serum or Plasm a glomerular filtration rate [volume rate/area] in serum, plasma or blood by creatinine-b ased formula (CKD-epi 2020)/1.73 sq M 21 text: >90 mL/min /1.73 M2 low GFR ESTIM ATE 21 (L) >90 ML/NC N/1.7 3 M2 08/24 3:[address] [facility] Not Available Not Available 08/28/2024 02:22:24 08/25/19 25 08/24/2024 Basic metab olic 2000 panel - Serum or Plasm a GFR notes GFR REFERE NCES: GFR NOTES GFR REFER ENCES : 08/24 3:54 AM CDT [facility] Not Available Not Available 08/28/2024 02:22:24 08/25/19 25 08/24/2024 Basic metab olic 2000 panel - Serum or Plasm a interpretati on and review of laboratory results Abnorm al Not Available Not Available 02:22:24 08/25/19 25 08/24/2024 Creat ine kinas e [Enzy matic activ ity/v olume ] in Serum or Plasm a creatine kinase [enzymatic activity/vol ume] in serum or plasma 1330 U/L low: 26U/Lh igh: 192U/L high CPK 1,330 (H) 26 - 192 U/L 08/24 3:54 AM CDT [facility] Not Available Not Available 08/28/2024 02:22:24 08/25/19 25 08/24/2024 Creat ine kinas e [Enzy matic activ ity/v olume ] in Serum or Plasm a interpretati on and review of laboratory results Abnorm al Not Available Not Available 02:22:24 08/26/19 25 08/25/2024 Creat ine kinas e [Enzy matic activ ity/v olume ] in Serum or Plasm a creatine kinase [enzymatic activity/vol ume] in serum or plasma 683 U/L low: 26U/Lh igh: 192U/L high CPK 683 (H) 26 - 192 U/L 08/25 10:16 AM CDT [facility] Not Available Not Available 08/28/2024 02:22:25 08/26/19 25 08/25/2024 Creat ine kinas e [Enzy matic activ ity/v olume ] in Serum or Plasm a interpretati on and review of laboratory results Abnorm al Not Available Not Available 02:22:25 08/26/19 25 08/25/2024 CBC panel - Blood by Autom ated count leukocytes [#/volume] in blood by automated count 8.18 text: 4.00 - 10.80 x10'3/ uL WBC 8.18 4.00 - 10.80 x10'3 /uL 08/25 6:35 AM T [facility] Not Available Not Available 08/28/2024 02:22:25 08/26/1908/25/2024 CBC panel - Blood by Autom ated count erythrocytes [#/volume] in blood by automated count 3.24 text: 4.10 - 5.40 x10'6/ uL low RBC 3.24 (L) 4.10 - 5.40 x10'6 /uL 08/25 6:35 AM T [facility] Not Available Not Available 08/28/2024 02:22:25 08/26/1908/25/2024 CBC panel - Blood by Autom ated count hemoglobin [mass/volume ] in blood 9.5 text: 12.0 - 16.0 g/dL low HGB 9.5 (L) 12.0 - 16.0 G/DL 08/25 6:[address] [facility] Not Available Not Available 08/28/2024 02:22:25 08/26/1908/25/2024 CBC panel - Blood by Autom ated count hematocrit [volume fraction] of blood by calculation 31.8 % low: 36%hig h: 47% low HCT 31.8 (L) 36.0 - 47.0 % 08/25 6:[address] [facility] Not Available Not Available 08/28/2024 02:22:25 08/26/1908/25/2024 CBC panel - Blood by Autom ated count MCV [entitic mean volume] in red blood cells 98.1 text: 78.0 - 100.0 fL MCV 98.1 78.0 - 100.0 FL 08/25 6:[address] [facility] Not Available Not Available 08/28/2024 02:22:25 08/26/19 25 08/25/2024 CBC panel - Blood by Autom ated count MCH [entitic mass] 29.3 pg low: 27pghi gh: 31pg MCH 29.3 27.0 - 31.0 PG 08/25 6:35 AM T [facility] Not Available Not Available 08/28/2024 02:22:25 08/26/1908/25/2024 CBC panel - Blood by Autom ated count MCHC [entitic mass/volume] in red blood cells 29.9 text: 33.0 - 36.0 g/dL low MCHC 29.9 (L) 33.0 - 36.0 G/DL 08/25 6:35 AM T [facility] Not Available Not Available 08/28/2024 02:22:25 08/26/19 25 08/25/2024 CBC panel - Blood by Autom ated count RDW 12.7 % low: 11.5%h igh: 14.5% RDW 12.7 11.5 - 14.5 % 08/25 6:35 AM T [facility] Not Available Not Available 08/28/2024 02:22:25 08/26/19 25 08/25/2024 CBC panel - Blood by Autom ated count platelets [#/volume] in blood 194 text: 150 - 350 x10'3/ uL PLT 194 150 - 350 x10'3 /uL 08/25 6:35 AM T [facility] Not Available Not Available 08/28/2024 02:22:25 08/26/1908/25/2024 CBC panel - Blood by Autom ated count platelet [entitic mean volume] in blood 9.6 text: 7.4 - 10.4 fL MPV 9.6 7.4 - 10.4 FL 08/25 6:[address] [facility] Not Available Not Available 08/28/2024 02:22:25 08/26/19 25 08/25/2024 CBC panel - Blood by Autom ated count interpretati on and review of laboratory results Abnorm al Not Available Not Available 02:22:25 08/26/19 25 08/25/2024 Basic metab olic 2000 panel - Serum or Plasm a sodium [moles/volum e] in serum or plasma 139 text: 136 - 145 mmol/L SODIU M S/P/B 139 136 - 145 MMOL/ L 08/25 6:56 AM T [facility] Not Available Not Available 08/28/2024 02:22:24 08/26/19 25 08/25/2024 Basic metab olic 2000 panel - Serum or Plasm a potassium [moles/volum e] in serum or plasma 4.2 text: 3.5 - 5.1 mmol/L POTAS SIUM S/P/B 4.2 3.5 - 5.1 MMOL/ L 08/25 6:56 AM CDT [facility] Not Available Not Available 08/28/2024 02:22:24 08/26/19 25 08/25/2024 Basic metab olic 2000 panel - Serum or Plasm a chloride [moles/volum e] in serum or plasma 110 text: 97 - 115 mmol/L CHLOR CORDELL S/P/B 110 97 - 115 MMOL/ L 08/25 6:56 AM CDT [facility] Not Available Not Available 08/28/2024 02:22:24 08/26/19 25 08/25/2024 Basic metab olic 2000 panel - Serum or Plasm a carbon dioxide, total [moles/volum e] in serum or plasma 22.2 text: 21.0 - 32.0 mmol/L CO2 22.2 21.0 - 32.0 MMOL/ L 08/25 6:56 AM T [facility] Not Available Not Available 08/28/2024 02:22:24 08/26/19 25 08/25/2024 Basic metab olic 2000 panel - Serum or Plasm a glucose [mass/volume ] in serum or plasma 128 text: 74 - 106 mg/dL high GLUCO SE 128 (H) 74 - 106 MG/DL 08/25 6:56 AM T [facility] Not Available Not Available 08/28/2024 02:22:24 08/26/19 25 08/25/2024 Basic metab olic 2000 panel - Serum or Plasm a urea nitrogen [mass/volume ] in serum or plasma 29 text: 7 - 18 mg/dL high BUN 29 (H) 7 - 18 MG/DL 08/25 6:[address] [facility] Not Available Not Available 08/28/2024 02:22:24 08/26/19 25 08/25/2024 Basic metab olic 1999 panel - Serum or Plasm a creatinine [mass/volume ] in serum or plasma 1.83 text: 0.55 - 1.02 mg/dL high CREAT ININE S/P/B 1.83 (H) 0.55 - 1.02 MG/DL 08/25 6:[address] [facility] Not Available Not Available 08/28/2024 02:22:24 08/26/1908/25/2024 Basic metab olic 2000 panel - Serum or Plasm a calcium [mass/volume ] in serum or plasma 7.9 text: 8.5 - 10.1 mg/dL low CALCI UM S/P/B 7.9 (L) 8.5 - 10.1 MG/DL 08/25 6:[address] [facility] Not Available Not Available 08/28/2024 02:22:24 08/26/19 25 08/25/2024 Basic metab olic 1999 panel - Serum or Plasm a anion gap in serum or plasma by calculation 6.8 text: 2.0 - 10.0 mmol/L ANION GAP 6.8 2.0 - 10.0 MMOL/ L 08/25 6:[address] [facility] Not Available Not Available 08/28/2024 02:22:24 08/26/19 25 08/25/2024 Basic metab olic 2000 panel - Serum or Plasm a osmolality of serum or plasma by calculated by sum of electrolytes 295 text: mOsm/k g OSMOL ALITY (CALC ) 295 MOSM/ KG 08/25 6:[address] [facility] Not Available Not Available 08/28/2024 02:22:24 08/26/19 25 08/25/2024 Basic metab olic 2000 panel - Serum or Plasm a glomerular filtration rate [volume rate/area] in serum, plasma or blood by creatinine-b ased formula (CKD-epi 2020)/1.73 sq M 26 text: >90 mL/min /1.73 M2 low GFR ESTIM ATE 26 (L) >90 ML/NC N/1.7 3 M2 08/25 6:56 AM CDT [facility] Not Available Not Available 08/28/2024 02:22:24 08/26/1908/25/2024 Basic metab olic 2000 panel - Serum or Plasm a GFR notes GFR REFERE NCES: GFR NOTES GFR REFER ENCES : 08/25 6:56 AM CDT [facility] Not Available Not Available 08/28/2024 02:22:24 08/26/1908/25/2024 Basic metab olic 2000 panel - Serum or Plasm a interpretati on and review of laboratory results Abnorm al Not Available Not Available 02:22:24 08/27/1908/26/2024 CBC W Auto Diffe renti al panel - Blood leukocytes [#/volume] in blood by automated count 7.84 text: 4.00 - 10.80 x10'3/ uL WBC 7.84 4.00 - 10.80 x10'3 /uL 08/26 4:[address] [facility] Not Available Not Available 08/28/2024 02:22:25 08/27/1908/26/2024 CBC W Auto Diffe renti al panel - Blood erythrocytes [#/volume] in blood by automated count 3.39 text: 4.10 - 5.40 x10'6/ uL low RBC 3.39 (L) 4.10 - 5.40 x10'6 /uL 08/26 4:07 AM T [facility] Not Available Not Available 08/28/2024 02:22:25 08/27/19 25 08/26/2024 CBC W Auto Diffe renti al panel - Blood hemoglobin [mass/volume ] in blood 10 text: 12.0 - 16.0 g/dL low HGB 10.0 (L) 12.0 - 16.0 G/DL 08/26 4:[address] [facility] Not Available Not Available 08/28/2024 02:22:25 08/27/19 25 08/26/2024 CBC W Auto Diffe renti al panel - Blood hematocrit [volume fraction] of blood by calculation 32.8 % low: 36%hig h: 47% low HCT 32.8 (L) 36.0 - 47.0 % 08/26 4:[address] [facility] Not Available Not Available 08/28/2024 02:22:25 08/27/19 25 08/26/2024 CBC W Auto Diffe renti al panel - Blood MCV [entitic mean volume] in red blood cells 96.8 text: 78.0 - 100.0 fL MCV 96.8 78.0 - 100.0 FL 08/26 4:[address] [facility] Not Available Not Available 08/28/2024 02:22:25 08/27/19 25 08/26/2024 CBC W Auto Diffe renti al panel - Blood MCH [entitic mass] 29.5 pg low: 27pghi gh: 31pg MCH 29.5 27.0 - 31.0 PG 08/26 4:[address] [facility] Not Available Not Available 08/28/2024 02:22:25 08/27/19 25 08/26/2024 CBC W Auto Diffe renti al panel - Blood MCHC [entitic mass/volume] in red blood cells 30.5 text: 33.0 - 36.0 g/dL low MCHC 30.5 (L) 33.0 - 36.0 G/DL 08/26 4:[address] [facility] Not Available Not Available 08/28/2024 02:22:25 08/27/19 25 08/26/2024 CBC W Auto Diffe renti al panel - Blood RDW 12.5 % low: 11.5%h igh: 14.5% RDW 12.5 11.5 - 14.5 % 08/26 4:[address] [facility] Not Available Not Available 08/28/2024 02:22:25 08/27/19 25 08/26/2024 CBC W Auto Diffe renti al panel - Blood platelets [#/volume] in blood 219 text: 150 - 350 x10'3/ uL PLT 219 150 - 350 x10'3 /uL 08/26 4:07 AM T [facility] Not Available Not Available 08/28/2024 02:22:25 08/27/19 25 08/26/2024 CBC W Auto Diffe renti al panel - Blood platelet [entitic mean volume] in blood 9.7 text: 7.4 - 10.4 fL MPV 9.7 7.4 - 10.4 FL 08/26 4:[address] [facility] Not Available Not Available 08/28/2024 02:22:25 08/27/19 25 08/26/2024 CBC W Auto Diffe renti al panel - Blood differential cell count method - blood AUTOMA KATHI DIFFER ENTIAL DIFFE RENTI AL TYPE AUTOM ATED DIFFE RENTI AL 08/26 4:[address] [facility] Not Available Not Available 08/28/2024 02:22:25 08/27/19 25 08/26/2024 CBC W Auto Diffe renti al panel - Blood neutrophils/ leukocytes in blood by automated count 72.1 % SEG NEUTR OPHIL S 72.1 % 08/26 4:07 AM T [facility] Not Available Not Available 08/28/2024 02:22:25 08/27/19 25 08/26/2024 CBC W Auto Diffe renti al panel - Blood lymphocytes/ leukocytes in blood by automated count 15.1 % LYMPH OCYTE S 15.1 % 08/26 4:[address] [facility] Not Available Not Available 08/28/2024 02:22:25 08/27/19 25 08/26/2024 CBC W Auto Diffe renti al panel - Blood monocytes/le ukocytes in blood by automated count 9.3 % MONOC YTES 9.3 % 08/26 4:07 AM CDT [facility] Not Available Not Available 08/28/2024 02:22:25 08/27/19 25 08/26/2024 CBC W Auto Diffe renti al panel - Blood eosinophils/ leukocytes in blood by automated count 2.7 % EOSIN OPHIL S 2.7 % 08/26 4:07 AM CDT [facility] Not Available Not Available 08/28/2024 02:22:25 08/27/19 25 08/26/2024 CBC W Auto Diffe renti al panel - Blood basophils/le ukocytes in blood by automated count 0.4 % BASOP HILS 0.4 % 08/26 4:[address] [facility] Not Available Not Available 08/28/2024 02:22:25 08/27/19 25 08/26/2024 CBC W Auto Diffe renti al panel - Blood immature granulocytes /leukocytes in blood by automated count 0.4 % IMMAT URE GRANS % 0.4 % 08/26 4:[address] [facility] Not Available Not Available 08/28/2024 02:22:25 08/27/19 25 08/26/2024 CBC W Auto Diffe renti al panel - Blood neutrophils [#/volume] in blood 5.66 text: 1.60 - 8.30 x10'3/ uL ABS. NEUTR OPHIL S 5.66 1.60 - 8.30 x10'3 /uL 08/26 4:07 AM CDT [facility] Not Available Not Available 08/28/2024 02:22:25 08/27/19 25 08/26/2024 CBC W Auto Diffe renti al panel - Blood lymphocytes [#/volume] in blood 1.18 text: 0.80 - 4.70 x10'3/ uL ABS. LYMPH OCYTE S 1.18 0.80 - 4.70 x10'3 /uL 08/26 4:[address] [facility] Not Available Not Available 08/28/2024 02:22:25 08/27/19 25 08/26/2024 CBC W Auto Diffe renti al panel - Blood monocytes [#/volume] in blood 0.73 text: 0.00 - 1.50 x10'3/ uL ABS. MONOC YTES 0.73 0.00 - 1.50 x10'3 /uL 08/26 4:07 AM CDT [facility] Not Available Not Available 08/28/2024 02:22:25 08/27/19 25 08/26/2024 CBC W Auto Diffe renti al panel - Blood eosinophils [#/volume] in blood 0.21 text: 0.00 - 0.40 x10'3/ uL ABS. EOSIN OPHIL S 0.21 0.00 - 0.40 x10'3 /uL 08/26 4:07 AM CDT [facility] Not Available Not Available 08/28/2024 02:22:25 08/27/19 25 08/26/2024 CBC W Auto Diffe renti al panel - Blood basophils [#/volume] in blood 0.03 text: 0.00 - 0.20 x10'3/ uL ABS. BASOP HILS 0.03 0.00 - 0.20 x10'3 /uL 08/26 4:[address] [facility] Not Available Not Available 08/28/2024 02:22:25 08/27/19 25 08/26/2024 CBC W Auto Diffe renti al panel - Blood immature granulocytes [#/volume] in blood 0.03 text: 0.00 - 0.03 x10'3/ uL ABS. IMMAT URE GRANU LOCYT ES 0.03 0.00 - 0.03 x10'3 /uL 08/26 4:[address] [facility] Not Available Not Available 08/28/2024 02:22:25 08/27/19 25 08/26/2024 CBC W Auto Diffe renti al panel - Blood nucleated erythrocytes [#/volume] in blood 0 text: 0.00 - 0.01 x10'3/ uL ABS. NUCLE ATED RBC'S 0.00 0.00 - 0.01 x10'3 /uL 08/26 4:[address] [facility] Not Available Not Available 08/28/2024 02:22:25 08/27/19 25 08/26/2024 CBC W Auto Diffe renti al panel - Blood nucleated erythrocytes /leukocytes [ratio] in blood 0 % NRBC % 0.0 % 08/26 4:[address] [facility] Not Available Not Available 08/28/2024 02:22:25 08/27/1908/26/2024 CBC W Auto Diffe renti al panel - Blood interpretati on and review of laboratory results Abnorm al Not Available Not Available 02:22:25 08/27/19 25 08/26/2024 Magne sium [Mass /volu me] in Serum or Plasm a magnesium [mass/volume ] in serum or plasma 1.9 text: 1.6 - 2.6 mg/dL MAGNE SIUM 1.9 1.6 - 2.6 MG/DL 08/26 4:[address] [facility] Not Available Not Available 08/28/2024 02:22:25 08/27/19 25 08/26/2024 Basic metab olic 1999 panel - Serum or Plasm a sodium [moles/volum e] in serum or plasma 142 text: 136 - 145 mmol/L SODIU M S/P/B 142 136 - 145 MMOL/ L 08/26 4:[address] [facility] Not Available Not Available 08/28/2024 02:22:25 08/27/19 25 08/26/2024 Basic metab olic 1999 panel - Serum or Plasm a potassium [moles/volum e] in serum or plasma 4.4 text: 3.5 - 5.1 mmol/L POTAS SIUM S/P/B 4.4 3.5 - 5.1 MMOL/ L 08/26 4:[address] [facility] Not Available Not Available 08/28/2024 02:22:25 08/27/19 25 08/26/2024 Basic metab olic 2000 panel - Serum or Plasm a chloride [moles/volum e] in serum or plasma 114 text: 97 - 115 mmol/L CHLOR CORDELL S/P/B 114 97 - 115 MMOL/ L 08/26 4:39 AM T [facility] Not Available Not Available 08/28/2024 02:22:25 08/27/19 25 08/26/2024 Basic metab olic 2000 panel - Serum or Plasm a carbon dioxide, total [moles/volum e] in serum or plasma 22.2 text: 21.0 - 32.0 mmol/L CO2 22.2 21.0 - 32.0 MMOL/ L 08/26 4:[address] [facility] Not Available Not Available 08/28/2024 02:22:25 08/27/19 25 08/26/2024 Basic metab olic 2000 panel - Serum or Plasm a glucose [mass/volume ] in serum or plasma 109 text: 74 - 106 mg/dL high GLUCO SE 109 (H) 74 - 106 MG/DL 08/26 4:[address] [facility] Not Available Not Available 08/28/2024 02:22:25 08/27/19 25 08/26/2024 Basic metab olic 2000 panel - Serum or Plasm a urea nitrogen [mass/volume ] in serum or plasma 23 text: 7 - 18 mg/dL high BUN 23 (H) 7 - 18 MG/DL 08/26 4:39 AM T [facility] Not Available Not Available 08/28/2024 02:22:25 08/27/19 25 08/26/2024 Basic metab olic 2000 panel - Serum or Plasm a creatinine [mass/volume ] in serum or plasma 1.49 text: 0.55 - 1.02 mg/dL high CREAT ININE S/P/B 1.49 (H) 0.55 - 1.02 MG/DL 08/26 4:39 AM T [facility] Not Available Not Available 08/28/2024 02:22:25 08/27/1908/26/2024 Basic metab olic 2000 panel - Serum or Plasm a calcium [mass/volume ] in serum or plasma 8.3 text: 8.5 - 10.1 mg/dL low CALCI UM S/P/B 8.3 (L) 8.5 - 10.1 MG/DL 08/26 4:39 AM T [facility] Not Available Not Available 08/28/2024 02:22:25 08/27/1908/26/2024 Basic metab olic 2000 panel - Serum or Plasm a anion gap in serum or plasma by calculation 5.8 text: 2.0 - 10.0 mmol/L ANION GAP 5.8 2.0 - 10.0 MMOL/ L 08/26 4:[address] [facility] Not Available Not Available 08/28/2024 02:22:25 08/27/1908/26/2024 Basic metab olic 2000 panel - Serum or Plasm a osmolality of serum or plasma by calculated by sum of electrolytes 298 text: mOsm/k g OSMOL ALITY (CALC ) 298 MOSM/ KG 08/26 4:[address] [facility] Not Available Not Available 08/28/2024 02:22:25 08/27/1908/26/2024 Basic metab olic 2000 panel - Serum or Plasm a glomerular filtration rate [volume rate/area] in serum, plasma or blood by creatinine-b ased formula (CKD-epi 2020)/1.73 sq M 34 text: >90 mL/min /1.73 M2 low GFR ESTIM ATE 34 (L) >90 ML/NC N/1.7 3 M2 08/26 4:39 AM T [facility] Not Available Not Available 08/28/2024 02:22:25 08/27/19 25 08/26/2024 Basic metab olic 2000 panel - Serum or Plasm a GFR notes GFR REFERE NCES: GFR NOTES GFR REFER ENCES : 08/26 4:39 AM T [facility] Not Available Not Available 08/28/2024 02:22:25 08/27/19 25 08/26/2024 Basic metab olic 2000 panel - Serum or Plasm a interpretati on and review of laboratory results Abnorm al Not Available Not Available 02:22:25 08/27/19 25 08/26/2024 Creat ine kinas e [Enzy matic activ ity/v olume ] in Serum or Plasm a creatine kinase [enzymatic activity/vol ume] in serum or plasma 379 U/L low: 26U/Lh igh: 192U/L high CPK 379 (H) 26 - 192 U/L 08/26 4:39 AM CDT [facility] Not Available Not Available 08/28/2024 02:22:25 08/27/19 25 08/26/2024 Creat ine kinas e [Enzy matic activ ity/v olume ] in Serum or Plasm a interpretati on and review of laboratory results Abnorm al Not Available Not Available 02:22:25 09/13/19 25 09/12/2024 Creat ine kinas e [Enzy matic activ ity/v olume ] in Serum or Plasm a creatine kinase [enzymatic activity/vol ume] in serum or plasma 43 U/L low: 29U/Lh igh: 168U/L CK (CPK) 43 29 - 168 U/L 09/12 1:53 PM CDT [facility] Not Available Not Available 09/13/2024 10:47:15 09/13/19 25 09/12/2024 Creat ine kinas e [Enzy matic activ ity/v olume ] in Serum or Plasm a interpretati on and review of laboratory results Normal Not Available Not Available 09/02 10:47:15 09/13/19 25 09/12/2024 C react madisyn prote in [Mass /volu me] in Serum or Plasm a C reactive protein [mass/volume ] in serum or plasma 0.65 mg/dL high: 0.5mg/ dL high C-MATILDE CTIVE PROTE IN 0.65 (H) <0.50 mg/dL 09/12 1:53 PM CDT [facility] Not Available Not Available 09/13/2024 10:47:15 09/13/1909/12/2024 C react madisyn prote in [Mass /volu me] in Serum or Plasm a interpretati on and review of laboratory results Abnorm al Not Available Not Available 10:47:15 09/13/19 25 09/12/2024 Gas panel - Arter ial blood oxygen gas flow oxygen delivery system 1l 92% (2 out of nose) O2 STATU S 1l 92% (2 out of nose) 09/12 8:49 AM CDT [facility] Not Available Not Available 09/13/2024 10:47:14 09/13/19 25 09/12/2024 Gas panel - Arter ial blood pH of arterial blood 7.46 low: 7.35hi gh: 7.45 high PH ARTER IAL 7.46 (H) 7.35 - 7.45 09/12 8:49 AM CD[facility] Not Available Not Available 09/13/2024 10:47:14 09/13/19 25 09/12/2024 Gas panel - Arter ial blood carbon dioxide [partial pressure] in arterial blood 67 text: 35 - 45 mmHg high PC02 ([place]) 67 (H) 35 - 45 mmHg 09/12 8:49 AM CDT [facility] Not Available Not Available 09/13/2024 10:47:14 09/13/19 25 09/12/2024 Gas panel - Arter ial blood oxygen [partial pressure] in arterial blood 66 text: 75 - 100 mmHg low PO2 ([place] R[place]) 66 (L) 75 - 100 mmHg 09/12 8:49 AM CDT [facility] Not Available Not Available 09/13/2024 10:47:14 09/13/19 25 09/12/2024 Gas panel - Arter ial blood oxygen saturation in arterial blood 90 % low: 94%hig h: 100% low O2 SAT ART, MEASU RED 90 (L) 94 - 100 % 09/12 8:49 AM CD[facility] [email or web address] [facility] Not Available Not Available 09/13/2024 10:47:14 09/13/1909/12/2024 Gas panel - Arter ial blood base arterial 21.3 mmol/ L low: -2mmol /Lhigh : 2mmol/ L high BASE ARTER IAL 21.3 (H) -2.0 - 2.0 mmol/ L 09/12 8:49 AM CDT [facility] [email or web address] [facility] Not Available Not Available 09/13/2024 10:47:14 09/13/1909/12/2024 Gas panel - Arter ial blood bicarbonate [moles/volum e] in blood 48.5 mmol/ L low: 22mmol /Lhigh : 26mmol /L high BICAR BONAT E 48.5 (H) 22.0 - 26.0 mmol/ L 09/12 8:49 AM CDT [facility] [email or web address] [facility] Not Available Not Available 09/13/2024 10:47:14 09/13/1909/12/2024 Gas panel - Arter ial blood arterial patency wrist artery --pre arterial puncture Positi ve - Right Radial RUT 'S TEST RESUL TS Posit madisyn - Right Radia l 09/12 8:49 AM CDT [facility] [email or web address] [facility] Not Available Not Available 09/13/2024 10:47:14 09/13/1909/12/2024 Gas panel - Arter ial blood carboxyhemog lobin/hemogl obin.total in blood 2 % low: 0%high : 5% CARBO XYHEM OGLOB IN 2.0 0.0 - 5.0 % 09/12 8:49 AM CDT [facility] [email or web address] [facility] Not Available Not Available 09/13/2024 10:47:14 09/13/19 25 09/12/2024 Gas panel - Arter ial blood methemoglobi n/hemoglobin .total in blood 0.3 % low: 0%high : 1.5% METHE MOGLO BIN 0.3 0.0 - 1.5 % 09/12 8:49 AM CDT [facility] [employer] [facility] Not Available Not Available 09/13/2024 10:47:14 09/13/19 25 09/12/2024 Gas panel - Arter ial blood interpretati on and review of laboratory results Abnorm al Not Available Not Available 10:47:14 09/13/19 25 09/12/2024 Influ trav virus A and B and SARS- CoV-2 (COVI D-19) and Respi rator y syncy tial virus RNA panel - Respi rator y syste m speci men by DONTAE with probe detec tion influenza virus A RNA [presence] in upper respiratory specimen by DONTAE with probe detection Negati ve text: negati ve, error FLU A Negat madisyn Negat madisyn, Error 09/12 8:21 AM CDT [facility] [employer] [facility] Not Available Not Available 09/13/2024 10:47:15 09/13/19 25 09/12/2024 Influ trav virus A and B and SARS- CoV-2 (COVI D-19) and Respi rator y syncy tial virus RNA panel - Respi rator y syste m speci men by DONTAE with probe detec tion influenza virus B RNA [presence] in upper respiratory specimen by DONTAE with probe detection Negati ve text: negati ve FLU B Negat madisyn Negat madisyn 09/12 8:21 AM CDT [facility] [employer] [facility] Not Available Not Available 09/13/2024 10:47:15 09/13/19 25 09/12/2024 Influ trav virus A and B and SARS- CoV-2 (COVI D-19) and Respi rator y syncy tial virus RNA panel - Respi rator y syste m speci men by DONTAE with probe detec tion respiratory syncytial virus RNA [presence] in respiratory system specimen by DONTAE with probe detection Negati ve text: negati ve RESP SYNC VIRUS Negat madisyn Negat madisyn 09/12 8:21 AM CDT [facility] [employer] [facility] Not Available Not Available 09/13/2024 10:47:15 09/13/19 25 09/12/2024 Influ trav virus A and B and SARS- CoV-2 (COVI D-19) and Respi rator y syncy tial virus RNA panel - Respi rator y syste m speci men by DONTAE with probe detec tion sars-cov-2 (covid-19) N gene [presence] in specimen by DONTAE with probe detection NOT DETECT ED text: (refer ence range for this test IS not detect ed) SARSC OV2 NOT DETEC KATHI (Refe rence Range for this test is Not Detec kathi) 09/12 8:21 AM CDT [facility] [employer] [facility] Not Available Not Available 09/13/2024 10:47:15 09/13/19 25 09/12/2024 Influ trav virus A and B and SARS- CoV-2 (COVI D-19) and Respi rator y syncy tial virus RNA panel - Respi rator y syste m speci men by DONTAE with probe detec tion interpretati on and review of laboratory results Normal Not Available Not Available 09/02 10:47:15 09/13/1909/12/2024 Fibri n D-dim er FEU [Mass /volu me] in Plate let poor plasm a fibrin D-dimer feu [mass/volume ] in platelet poor plasma 3.33 text: <0.50 mcg/mL feu high D DIMER 3.33 (H) <0.50 mcg/m L FEU 09/12 8:14 AM CDT [facility] [employer] [facility] Not Available Not Available 09/13/2024 10:47:15 09/13/19 25 09/12/2024 Fibri n D-dim er FEU [Mass /volu me] in Plate let poor plasm a Unknown Analyte The FDA has approv ed this method to exclud e the diagno sis of DVT and/or PE at the cutoff value of <0.50 mcg/mL FEU. The FDA has appro zulema this metho d to exclu de the diagn osis of DVT and/o r PE at the cutof f value of <0.50 mcg/m L FEU. Not Available Not Available 09/13/2024 10:47:15 09/13/19 25 09/12/2024 Fibri n D-dim er FEU [Mass /volu me] in Plate let poor plasm a interpretati on and review of laboratory results Abnorm al Not Available Not Available 10:47:15 09/13/19 25 09/12/2024 Compr ehens madisyn metab olic 1999 panel - Serum or Plasm a sodium [moles/volum e] in serum or plasma 143 mmol/ L low: 136mmo l/Lhig h: 145mmo l/L SODIU M 143 136 - 145 mmol/ L 09/12 8:02 AM CDT [facility] Not Available Not Available 09/13/2024 10:47:15 09/13/19 25 09/12/2024 Compr ehens madisyn metab olic 1999 panel - Serum or Plasm a potassium [moles/volum e] in serum or plasma 3.5 mmol/ L low: 3.5mmo l/Lhig h: 5.1mmo l/L POTAS SIUM 3.5 3.5 - 5.1 mmol/ L 09/12 8:02 AM CDT [facility] Not Available Not Available 09/13/2024 10:47:15 09/13/19 25 09/12/2024 Compr ehens madisyn metab olic 1999 panel - Serum or Plasm a chloride [moles/volum e] in serum or plasma 95 mmol/ L low: 98mmol /Lhigh : 107mmo l/L low CHLOR CORDELL 95 (L) 98 - 107 mmol/ L 09/12 8:02 AM CDT [facility] Not Available Not Available 09/13/2024 10:47:15 09/13/19 25 09/12/2024 Compr ehens madisyn metab olic 1999 panel - Serum or Plasm a carbon dioxide, total [moles/volum e] in serum or plasma 36 mmol/ L low: 22mmol /Lhigh : 30mmol /L high CO2, VENOU S 36 (H) 22 - 30 mmol/ L 09/12 8:02 AM CDT [facility] Not Available Not Available 09/13/2024 10:47:15 09/13/19 25 09/12/2024 Compr ehens madisyn metab olic 1999 panel - Serum or Plasm a anion gap in serum or plasma by calculation 15.5 mmol/ L high: 18mmol /L ANION GAP 15.5 <18.0 mmol/ L 09/12 8:02 AM CDT [facility] Not Available Not Available 09/13/2024 10:47:15 09/13/19 25 09/12/2024 Compr ehens madisyn metab olic 1999 panel - Serum or Plasm a glucose [mass/volume ] in serum or plasma 144 mg/dL low: 70mg/d Lhigh: 99mg/d L high GLUCO SE 144 (H) 70 - 99 mg/dL 09/12 8:02 AM CDT [facility] Not Available Not Available 09/13/2024 10:47:15 09/13/19 25 09/12/2024 Compr ehens madisyn metab olic 1999 panel - Serum or Plasm a urea nitrogen [mass/volume ] in serum or plasma 25 mg/dL low: 10mg/d Lhigh: 20mg/d L high BUN 25 (H) 10 - 20 mg/dL 09/12 8:02 AM CDT [facility] Not Available Not Available 09/13/2024 10:47:15 09/13/19 25 09/12/2024 Compr ehens madisyn metab olic 1999 panel - Serum or Plasm a creatinine [mass/volume ] in serum or plasma 1.45 mg/dL low: 0.6mg/ dLhigh : 1mg/dL high CREAT ININE , BLOOD 1.45 (H) 0.60 - 1.00 mg/dL 09/12 8:02 AM CDT [facility] Not Available Not Available 09/13/2024 10:47:15 09/13/19 25 09/12/2024 Compr ehens madisyn metab olic 1999 panel - Serum or Plasm a urea nitrogen/cre atinine [mass ratio] in serum or plasma 17 text: 12 - 20 ratio BUN/C REATI NINE RATIO 17 12 - 20 ratio 09/12 8:02 AM CDT [facility] [employer] [facility] Not Available Not Available 09/13/2024 10:47:15 09/13/19 25 09/12/2024 Compr manet[facility] madisyn metab olic 1999 panel - Serum or Plasm a protein [mass/volume ] in serum or plasma 6.7 g/dL low: 6g/dLh igh: 8g/dL TOTAL PROTE IN 6.7 6.0 - 8.0 g/dL 09/12 8:02 AM CDT [facility] [employer] [facility] Not Available Not Available 09/13/2024 10:47:15 09/13/19 25 09/12/2024 Compr [facility] madisyn Tripeese olic 1999 panel - Serum or Plasm a albumin [mass/volume ] in serum or plasma 3.4 g/dL low: 3.5g/d Lhigh: 5g/dL low ALBUM IN 3.4 (L) 3.5 - 5.0 g/dL 09/12 8:02 AM CDT [facility] [employer] [facility] Not Available Not Available 09/13/2024 10:47:15 09/13/19 25 09/12/2024 Compr [facility] madisyn Tripeese olic 1999 panel - Serum or Plasm a albumin/glob ulin [mass ratio] in serum or plasma 1 low: 1high: 2.2 A/G RATIO 1.0 1.0 - 2.2 09/12 8:02 AM CDT [facility] [employer] [facility] Not Available Not Available 09/13/2024 10:47:15 09/13/19 25 09/12/2024 Compr [facility]etchens madisyn Tripeese olic 1999 panel - Serum or Plasm a calcium [mass/volume ] in serum or plasma 8.6 mg/dL low: 8.7mg/ dLhigh : 10.5mg /dL low CALCI UM 8.6 (L) 8.7 - 10.5 mg/dL 09/12 8:02 AM CDT [email or web address] [email or web address] Not Available Not Available 09/13/2024 10:47:15 09/13/1909/12/2024 Compr ehens madisyn metab olic 1999 panel - Serum or Plasm a bilirubin.to bita [mass/volume ] in serum or plasma 0.9 mg/dL low: 0.2mg/ dLhigh : 1.2mg/ dL T BILI 0.9 0.2 - 1.2 mg/dL 09/12 8:02 AM T [email or web address] [email or web address] [facility] Not Available Not Available 09/13/2024 10:47:15 09/13/1909/12/2024 Compr ehens madisyn metab olic 1999 panel - Serum or Plasm a aspartate aminotransfe rase [enzymatic activity/vol ume] in serum or plasma 20 U/L high: 43U/L SGOT (AST) 20 <43 U/L 09/12 8:02 AM [email or web address] [email or web address] R LAB Not Available Not Available 09/13/2024 10:47:15 09/13/19 25 09/12/2024 Compr ehens madisyn metab olic 2000 panel - Serum or Plasm a alanine aminotransfe rase [enzymatic activity/vol ume] in serum or plasma 7 U/L high: 56U/L SGPT (ALT) 7 <56 U/L 09/12 8:02 AM [facility] [email or web address] [facility] LAB Not Available Not Available 09/13/2024 10:47:15 09/13/19 25 09/12/2024 Compr ehens madisyn metab olic 2000 panel - Serum or Plasm a alkaline phosphatase [enzymatic activity/vol ume] in serum or plasma 74 U/L low: 40U/Lh igh: 150U/L ALKAL INE PHOSP HATAS E 74 40 - 150 U/L 09/12 8:02 AM [facility] Not Available Not Available 09/13/2024 10:47:15 09/13/19 25 09/12/2024 Compr ehens madisyn metab olic 2000 panel - Serum or Plasm a glomerular filtration rate [volume rate/area] in serum, plasma or blood by creatinine-b ased formula (CKD-epi 2020)/1.73 sq M 35 low: 60 low GFR, ESTIM ATED 35 (L) >=60 09/12 8:02 AM CDT [facility] [employer] H CENTE R LAB Not Available Not Available 09/13/2024 10:47:15 09/13/1909/12/2024 Compr ehens madisyn metab olic 1999 panel - Serum or Plasm a glomerular filtration rate [volume rate/area] in serum, plasma or blood by creatinine-b ased formula (MDRD)/1.73 sq M among black population 41 low: 60 low GFR, EST. AFRIC AN 41 (L) >=60 09/12 8:02 AM CDT [facility] [employer] CENT[facility] R LAB Not Available Not Available 09/13/2024 10:47:15 09/13/1909/12/2024 Compr ehens madisyn metab olic 1999 panel - Serum or Plasm a glomerular filtration rate [volume rate/area] in serum, plasma or blood by creatinine-b ased formula (MDRD)/1.73 sq M among non black population 34 low: 60 low GFR, EST. NONAF RICAN 34 (L) >=60 09/12 8:02 AM CDT [facility] [employer] H CENTE R LAB Not Available Not Available 09/13/2024 10:47:15 09/13/1909/12/2024 Compr ehens madisyn metab olic 1999 panel - Serum or Plasm a interpretati on and review of laboratory results Abnorm al Not Available Not Available 10:47:15 09/13/19 25 09/12/2024 Natri ureti c pepti de B [Mass /volu me] in Serum or Plasm a natriuretic peptide B [mass/volume ] in serum or plasma 108 pg/mL high: 100pg/ mL high B TYPE NATRI URETI C PEPTI DE 108 (H) <100 pg/mL 09/12 8:14 AM CDT [facility] [employer] [facility] LAB Not Available Not Available 09/13/2024 10:47:14 09/13/19 25 09/12/2024 Natri ureti c pepti de B [Mass /volu me] in Serum or Plasm a interpretati on and review of laboratory results Abnorm al Not Available Not Available 10:47:14 09/14/19 25 09/13/2024 Gluco se [Mass /volu me] in Blood glucose [mass/volume ] in blood 206 mg/dL low: 70mg/d Lhigh: 99mg/d L high GLUCO SE,BE DSIDE POCT 206 (H) 70 - 99 mg/dL 09/13 7:21 AM CDT [facility] [employer] LAB Not Available Not Available 09/13/2024 10:47:15 09/14/19 25 09/13/2024 Gluco se [Mass /volu me] in Blood interpretati on and review of laboratory results Abnorm al Not Available Not Available 10:47:15 09/14/19 25 09/13/2024 Phosp hate [Mass /volu me] in Serum or Plasm a phosphate [mass/volume ] in serum or plasma 4.1 mg/dL low: 2.5mg/ dLhigh : 4.5mg/ dL PHOSP HORUS 4.1 2.5 - 4.5 mg/dL 09/13 5:50 AM CDT [facility] [employer] [facility] [facility] LAB Not Available Not Available 09/13/2024 10:47:15 09/14/19 25 09/13/2024 Phosp hate [Mass /volu me] in Serum or Plasm a interpretati on and review of laboratory results Normal Not Available Not Available 09/02 10:47:15 09/14/19 25 09/13/2024 Magne sium [Mass /volu me] in Serum or Plasm a magnesium [mass/volume ] in serum or plasma 1.6 mg/dL low: 1.6mg/ dLhigh : 2.6mg/ dL MAGNE SIUM 1.6 1.6 - 2.6 mg/dL 09/13 5:50 AM CDT [facility] [employer] LAB Not Available Not Available 09/13/2024 10:47:15 09/14/1909/13/2024 Magne sium [Mass /volu me] in Serum or Plasm a interpretati on and review of laboratory results Normal Not Available Not Available 09/02 10:47:15 09/14/19 25 09/13/2024 Basic metab olic 1999 panel - Serum or Plasm a sodium [moles/volum e] in serum or plasma 138 mmol/ L low: 136mmo l/Lhig h: 145mmo l/L SODIU M 138 136 - 145 mmol/ L 09/13 5:50 AM CDT [facility] Not Available Not Available 09/13/2024 10:47:15 09/14/1909/13/2024 Basic metab olic 1999 panel - Serum or Plasm a potassium [moles/volum e] in serum or plasma 3.8 mmol/ L low: 3.5mmo l/Lhig h: 5.1mmo l/L POTAS SIUM 3.8 3.5 - 5.1 mmol/ L 09/13 5:50 AM CDT [facility] LAB Not Available Not Available 09/13/2024 10:47:15 09/14/1909/13/2024 Basic metab olic 1999 panel - Serum or Plasm a chloride [moles/volum e] in serum or plasma 96 mmol/ L low: 98mmol /Lhigh : 107mmo l/L low CHLOR CORDELL 96 (L) 98 - 107 mmol/ L 09/13 5:50 AM CDT [facility] CENT[facility] R LAB Not Available Not Available 09/13/2024 10:47:15 09/14/19 25 09/13/2024 Basic metab olic 1999 panel - Serum or Plasm a carbon dioxide, total [moles/volum e] in serum or plasma 31 mmol/ L low: 22mmol /Lhigh : 30mmol /L high CO2, VENOU S 31 (H) 22 - 30 mmol/ L 09/13 5:50 AM CDT [facility] Not Available Not Available 09/13/2024 10:47:15 09/14/19 25 09/13/2024 Basic metab olic 1999 panel - Serum or Plasm a anion gap in serum or plasma by calculation 14.8 mmol/ L high: 18mmol /L ANION GAP 14.8 <18.0 mmol/ L 09/13 5:50 AM CDT [facility] [employer] LAB Not Available Not Available 09/13/2024 10:47:15 09/14/19 25 09/13/2024 Basic metab olic 1999 panel - Serum or Plasm a glucose [mass/volume ] in serum or plasma 211 mg/dL low: 70mg/d Lhigh: 99mg/d L high GLUCO SE 211 (H) 70 - 99 mg/dL 09/13 5:50 AM CDT [facility] [employer] [facility] LAB Not Available Not Available 09/13/2024 10:47:15 09/14/19 25 09/13/2024 Basic metab olic 1999 panel - Serum or Plasm a urea nitrogen [mass/volume ] in serum or plasma 27 mg/dL low: 10mg/d Lhigh: 20mg/d L high BUN 27 (H) 10 - 20 mg/dL 09/13 5:50 AM CDT [facility] [employer] [facility] LAB Not Available Not Available 09/13/2024 10:47:15 09/14/19 25 09/13/2024 Basic metab olic 1999 panel - Serum or Plasm a creatinine [mass/volume ] in serum or plasma 1.54 mg/dL low: 0.6mg/ dLhigh : 1mg/dL high CREAT ININE , BLOOD 1.54 (H) 0.60 - 1.00 mg/dL 09/13 5:50 AM CDT [facility] [employer] R LAB Not Available Not Available 09/13/2024 10:47:15 09/14/19 25 09/13/2024 Basic metab olic 1999 panel - Serum or Plasm a urea nitrogen/cre atinine [mass ratio] in serum or plasma 18 text: 12 - 20 ratio BUN/C REATI NINE RATIO 18 12 - 20 ratio 09/13 5:50 AM CDT [facility] [employer] [place] R LAB Not Available Not Available 09/13/2024 10:47:15 09/14/19 25 09/13/2024 Basic metab olic 2000 panel - Serum or Plasm a calcium [mass/volume ] in serum or plasma 8.4 mg/dL low: 8.7mg/ dLhigh : 10.5mg /dL low CALCI UM 8.4 (L) 8.7 - 10.5 mg/dL 09/13 5:50 AM CDT [facility] [employer] R LAB Not Available Not Available 09/13/2024 10:47:15 09/14/19 25 09/13/2024 Basic metab olic 2000 panel - Serum or Plasm a glomerular filtration rate [volume rate/area] in serum, plasma or blood by creatinine-b ased formula (CKD-epi 2020)/1.73 sq M 32 low: 60 low GFR, ESTIM ATED 32 (L) >=60 09/13 5:50 AM CDT [facility] [employer] R LAB Not Available Not Available 09/13/2024 10:47:15 09/14/19 25 09/13/2024 Basic metab olic 2000 panel - Serum or Plasm a glomerular filtration rate [volume rate/area] in serum, plasma or blood by creatinine-b ased formula (MDRD)/1.73 sq M among black population 39 low: 60 low GFR, EST. AFRIC AN 39 (L) >=60 09/13 5:50 AM CDT [facility] [employer] R LAB Not Available Not Available 09/13/2024 10:47:15 09/14/19 25 09/13/2024 Basic metab olic 2000 panel - Serum or Plasm a glomerular filtration rate [volume rate/area] in serum, plasma or blood by creatinine-b ased formula (MDRD)/1.73 sq M among non black population 32 low: 60 low GFR, EST. NONAF RICAN 32 (L) >=60 09/13 5:50 AM CDT [facility] [employer] [place] R LAB Not Available Not Available 09/13/2024 10:47:15 09/14/19 25 09/13/2024 Basic metab olic 2000 panel - Serum or Plasm a interpretati on and review of laboratory results Abnorm al Not Available Not Available 10:47:15 09/14/19 25 09/13/2024 CBC W Auto Diffe bert al panel - Blood leukocytes [#/volume] in blood by automated count 11.31 text: 4.00 - 12.00 10(3)/ mcL WBC 11.31 4.00 - 12.00 10(3) /mcL 09/13 5:28 AM [facility] Not Available Not Available 09/13/2024 10:47:15 09/14/19 25 09/13/2024 CBC W Auto Diffe bert al panel - Blood erythrocytes [#/volume] in blood by automated count 4.02 text: 3.80 - 5.30 10(6)/ mcL RBC 4.02 3.80 - 5.30 10(6) /mcL 09/13 5:28 AM CDT [facility] [email or web address] R LAB Not Available Not Available 09/13/2024 10:47:15 09/14/19 25 09/13/2024 CBC W Auto Diffe bert al panel - Blood hemoglobin [mass/volume ] in blood 12 g/dL low: 12g/dL high: 15.8g/ dL HEMOG LOBIN (HGB) 12.0 12.0 - 15.8 g/dL 09/13 5:28 AM CDT [facility] Not Available Not Available 09/13/2024 10:47:15 09/14/19 25 09/13/2024 CBC W Auto Diffe bert al panel - Blood hematocrit [volume fraction] of blood by automated count 37.6 % low: 36%hig h: 47% HEMAT OCRIT (HCT) 37.6 36.0 - 47.0 % 09/13 5:28 AM CDT [facility] Not Available Not Available 09/13/2024 10:47:15 09/14/19 25 09/13/2024 CBC W Auto Diffe renlew al panel - Blood MCV [entitic mean volume] in red blood cells by automated count 93.5 fL low: 82fLhi gh: 96fL MCV 93.5 82.0 - 96.0 fL 09/13 5:28 AM CDT [facility] [email or web address] [facility] LAB Not Available Not Available 09/13/2024 10:47:15 09/14/19 25 09/13/2024 CBC W Auto Diffe renti al panel - Blood MCH [entitic mass] by automated count 29.9 pg low: 26pghi gh: 34pg MCH 29.9 26.0 - 34.0 pg 09/13 5:28 AM CDT [facility] [email or web address] [facility] LAB Not Available Not Available 09/13/2024 10:47:15 09/14/19 25 09/13/2024 CBC W Auto Diffe renti al panel - Blood MCHC [entitic mass/volume] in red blood cells by automated count 31.9 g/dL low: 31g/dL high: 36g/dL MCHC 31.9 31.0 - 36.0 g/dL 09/13 5:28 AM CDT [facility] [email or web address] [facility] LAB Not Available Not Available 09/13/2024 10:47:15 09/14/19 25 09/13/2024 CBC W Auto Diffe renti al panel - Blood platelets [#/volume] in blood 244 text: 140 - 440 10(3)/ mcL PLATE LET COUNT 244 140 - 440 10(3) /mcL 09/13 5:28 AM CDT [facility] [email or web address] [facility] LAB Not Available Not Available 09/13/2024 10:47:15 09/14/19 25 09/13/2024 CBC W Auto Diffe renti al panel - Blood erythrocyte [distwidth] in red blood cells by automated count 12.9 % low: 11.8%h igh: 15.5% RDW 12.9 11.8 - 15.5 % 09/13 5:28 AM CDT [facility] Not Available Not Available 09/13/2024 10:47:15 09/14/19 25 09/13/2024 CBC W Auto Diffe renti al panel - Blood platelet [entitic mean volume] in blood by automated count 9.9 fL low: 9.7fLh igh: 12.4fL MPV 9.9 9.7 - 12.4 fL 09/13 5:28 AM CDT [facility] Not Available Not Available 09/13/2024 10:47:15 09/14/19 25 09/13/2024 CBC W Auto Diffe renti al panel - Blood neutrophils/ leukocytes in blood by automated count 90 % low: 47%hig h: 73% high NEUTR OPHIL S 90.0 (H) 47.0 - 73.0 % 09/13 5:28 AM CDT [facility] C[facility] R LAB Not Available Not Available 09/13/2024 10:47:15 09/14/19 25 09/13/2024 CBC W Auto Diffe renti al panel - Blood lymphocytes/ leukocytes in blood by automated count 7.5 % low: 18%hig h: 42% low LYMPH OCYTE S 7.5 (L) 18.0 - 42.0 % 09/13 5:28 AM CDT [facility] Not Available Not Available 09/13/2024 10:47:15 09/14/19 25 09/13/2024 CBC W Auto Diffe renti al panel - Blood monocytes/le ukocytes in blood by automated count 2.4 % low: 4%high : 12% low MONOC YTES 2.4 (L) 4.0 - 12.0 % 09/13 5:28 AM CDT [facility] R LAB Not Available Not Available 09/13/2024 10:47:15 09/14/19 25 09/13/2024 CBC W Auto Diffe renti al panel - Blood eosinophils/ leukocytes in blood by automated count 0 % low: 0%high : 5% EOSIN OPHIL S 0.0 0.0 - 5.0 % 09/13 5:28 AM CDT [facility] Not Available Not Available 09/13/2024 10:47:15 09/14/19 25 09/13/2024 CBC W Auto Diffe renti al panel - Blood basophils/le ukocytes in blood by automated count 0.1 % low: 0%high : 1% BASOP HILS 0.1 0.0 - 1.0 % 09/13 5:28 AM CDT [facility] [email or web address] [facility] LAB Not Available Not Available 09/13/2024 10:47:15 09/14/19 25 09/13/2024 CBC W Auto Diffe renti al panel - Blood neutrophils [#/volume] in blood by automated count 10.18 text: 1.60 - 7.70 10(3)/ mcL high ABSOL [place] NEUTR OPHIL S 10.18 (H) 1.60 - 7.70 10(3) /mcL 09/13 5:28 AM CDT [facility] [email or web address] LAB Not Available Not Available 09/13/2024 10:47:15 09/14/19 25 09/13/2024 CBC W Auto Diffe renti al panel - Blood lymphocytes [#/volume] in blood by automated count 0.85 text: 1.30 - 3.20 10(3)/ mcL low ABSOL [place] LYMPH OCYTE S 0.85 (L) 1.30 - 3.20 10(3) /mcL 09/13 5:28 AM CDT [facility] [email or web address] LAB Not Available Not Available 09/13/2024 10:47:15 09/14/19 25 09/13/2024 CBC W Auto Diffe renti al panel - Blood monocytes [#/volume] in blood by automated count 0.27 text: 0.20 - 1.00 10(3)/ mcL ABSOL [place] MONOC YTES 0.27 0.20 - 1.00 10(3) /mcL 09/13 5:28 AM CDT [facility] [email or web address] LAB Not Available Not Available 09/13/2024 10:47:15 09/14/19 25 09/13/2024 CBC W Auto Diffe renti al panel - Blood eosinophils [#/volume] in blood by automated count 0 text: 0.00 - 0.40 10(3)/ mcL ABSOL [place] EOSIN OPHIL 0.00 0.00 - 0.40 10(3) /mcL 09/13 5:28 AM CDT [facility] LAB Not Available Not Available 09/13/2024 10:47:15 09/14/19 25 09/13/2024 CBC W Auto Diffe renti al panel - Blood basophils [#/volume] in blood by automated count 0.01 text: 0.00 - 0.10 10(3)/ mcL ABSOL [place] BASOP HILS 0.01 0.00 - 0.10 10(3) /mcL 09/13 5:28 AM CDT [facility] Not Available Not Available 09/13/2024 10:47:15 09/14/19 25 09/13/2024 CBC W Auto Diffe renti al panel - Blood nucleated erythrocytes /leukocytes [ratio] in blood 0 NRBC PER 100 WBC 0 09/13 5:28 AM CDT [facility] LAB Not Available Not Available 09/13/2024 10:47:15 09/14/19 25 09/13/2024 CBC W Auto Diffe renti al panel - Blood interpretati on and review of laboratory results Abnorm al Not Available Not Available 10:47:15 10/29/19 24 10/28/2023 US, echoc ardio gram, trans thora cic, compl ete No observ ation record ed. [address] [place], [address], 10/29/2023 13:59:27 01/20/2001/20/2024 US, echoc ardio gram, trans thora cic, compl ete No observ ation record ed. [address] [place], [address], 01/21/2024 12:10:45 Result Notes None recorded. Problems No Known Problems Procedures Surgical History Date Name Laterality Status Provider Name and Address Organization Details Recorded Time closed reduction of fracture of upper limb completed Dede Hutson [place] [facility] 10/01/2023 10:07:37 Imaging Results Imaging Date Name Status LastModified by Organiz ation Details LastModified Time 10/28/2023 US, echocardiogra m, transthoracic , complete completed [address] [place], [address], 10/29/2023 13:59:27 01/20/2024 US, echocardiogra m, transthoracic , complete completed [address] [place], [address], 01/21/2024 12:10:45 Procedure Notes None recorded. Medical Equipment None Reported. Allergies No known drug allergies Medications Name Sig Start Date Stop Date Status Note LastModified by Organization Details LastModified Time iron 65mg tab TAKE 1 TABLET BY MOUTH ONCE DAILY active Not Available Not Available No t Available oxybutynin chloride ER 15 mg tablet,exte nded release 24 hr TAKE 1 TABLET BY MOUTH ONCE DAILY active Not Available Not Available No t Available donepezil 5 mg tablet TAKE 1 TABLET BY MOUTH ONCE DAILY DIRECTED active Not Available Not Available No t Available oxybutynin chloride ER 10 mg tablet,exte nded release 24 hr TAKE 1 TABLET BY MOUTH ONCE DAILY 06/25 completed Not Available Not Available Not Available azithromyci n 250 mg tablet TAKE 2 TABLETS BY MOUTH ON DAY 1, AND THEN TAKE 1 TABLET BY MOUTH ONCE A DAY ON DAY 2 THROUGH DAY 5 09/30 completed Not Available Not Available Not Available FreeStyle Lancets 28 gauge USE 1 LANCET TO CHECK GLUCOSE ONCE DAILY active Not Available Not Available No t Available lisinopril 20 mg tablet TAKE 1 TABLET BY MOUTH ONCE DAILY active Not Available Not Available No t Available ondansetron HCl 4 mg tablet TAKE 1 TABLET BY MOUTH TWICE DAILY NEEDED active Not Available Not Available No t Available hydralazine 25 mg tablet TAKE 1 TABLET BY MOUTH TWICE DAILY 02/09 completed Not Available Not Available Not Available amlodipine 2.5 mg tablet TAKE 1 TABLET BY MOUTH ONCE DAILY active Not Available Not Available No t Available levothyroxi ne 25 mcg tablet TAKE 1 TABLET BY MOUTH ONCE DAILY active Not Available Not Available No t Available meclizine 25 mg tablet TAKE 1 TABLET BY MOUTH 4 TIMES DAILY NEEDED active Not Available Not Available No t Available ropinirole 2 mg tablet TAKE 1 TABLET BY MOUTH NIGHTLY active Not Available Not Available No t Available cephalexin 500 mg capsule 09/30 completed Not Available Not Available Not Available metoprolol succinate ER 25 mg tablet,exte nded release 24 hr TAKE 1 TABLET BY MOUTH ONCE DAILY 09/30 completed Not Available Not Available Not Available methylpredn isolone 4 mg tablets in a dose pack TAKE BY MOUTH DIRECTED ON INSIDE OF PACKAGE 09/30 completed Not Available Not Available Not Available ipratropium bromide 21 mcg (0.03 %) nasal spray USE 2 SPRAY(S) IN EACH NOSTRIL TWICE DAILY active Not Available Not Available No t Available escitalopra m 10 mg tablet TAKE 1 TABLET BY MOUTH ONCE DAILY active Not Available Not Available No t Available escitalopra m 20 mg tablet TAKE 1 TABLET BY MOUTH ONCE DAILY FOR 90 DAYS active Not Available Not Available No t Available escitalopra m 5 mg tablet TAKE 1 TABLET BY MOUTH ONCE DAILY 09/30 completed Not Available Not Available Not Available solifenacin 10 mg tablet TAKE 1 TABLET BY MOUTH ONCE DAILY 09/13 completed Not Available Not Available Not Available FeroSul 325 mg (65 mg iron) tablet Take 1 tablet by mouth once daily 2024 active Not Available Not Available Not Avai lable OneTouch Verio test strips USE 1 STRIP TO CHECK GLUCOSE ONCE DAILY active Not Available Not Available No t Available OneTouch Verio Flex Meter USEAS DIRECTED active Not Available Not Available No t Available Vitals Date Recorded Body weight Oxygen saturation Oxygen saturation in Arterial blood by Pulse oximetry Heart rate Body mass index (BMI) Body height Systolic blood pressure Diastolic blood pressure Provider Name and Address Organization Details Last Updated DateTime 4 49789.5 9 g 96 % 96 % 50 /min 30.9 kg/m2 152.4 cm 162 mm[Hg] 60 mm[Hg] Dede Hutson MA [facility] 4 10:12:36 Date Recorded Body height Body mass index (BMI) Body weight Oxygen saturation Oxygen saturation in Arterial blood by Pulse oximetry Heart rate Systolic blood pressure Diastolic blood pressure Provider Name and Address Organization Details Last Updated DateTime 4 152.4 cm 30.9 kg/m2 72339.2 9 g 97 % 97 % 65 /min 134 mm[Hg] 82 mm[Hg] Dede Hutson MA [facility] 4 10:37:31 Date Recorded Body height Body mass index (BMI) Body weight Oxygen saturation Oxygen saturation in Arterial blood by Pulse oximetry Heart rate Systolic blood pressure Diastolic blood pressure Provider Name and Address Organization Details Last Updated DateTime 4 152.4 cm 30.6 kg/m2 55890.2 1 g 95 % 95 % 55 /min 130 mm[Hg] 66 mm[Hg] Dede Hutson MA [facility] 4 11:10:18 Date Recorded Body height Body mass index (BMI) Body weight Respiratory rate Oxygen saturation Oxygen saturation in Arterial blood by Pulse oximetry Heart rate Systolic blood pressure Diastolic blood pressure Provider Name and Address Organization Details Last Updated DateTime 5 152.4 cm 30.9 kg/m2 93258.0 3 g 16 /min 95 % 95 % 64 /min 122 mm[Hg] 74 mm[Hg] Monika Goldman MA [facility] 5 15:52:21 Date Recorded Body height Body mass index (BMI) Body weight Oxygen saturation Oxygen saturation in Arterial blood by Pulse oximetry Heart rate Respiratory rate Systolic blood pressure Diastolic blood pressure Provider Name and Address Organization Details Last Updated DateTime 5 152.4 cm 30.7 kg/m2 73423.4 4 g 95 % 95 % 88 /min 16 /min 138 mm[Hg] 86 mm[Hg] Monika Goldman MA [facility] SI 5 11:14:58 Social History Question Answer Notes LastModified by Organizat ion Details LastModified Time Tobacco Smoking Status Former Smoker Dede Hutson MA [facility] 10/01/2023 10:04:08 Are You Blind Or Do You Have Difficulty Seeing? Yes Information not available 10/01/2023 What Is Your Level Of Caffeine Consumption? Occasional Information not available 10/01/2023 Are You Deaf Or Do You Have Serious Difficulty Hearing? Yes Information not available 10/01/2023 What Type Of Diet Are You Following? REGULAR Information not available 10/01/2023 What Was The Date Of Your Most Recent Tobacco Screening? 07/15/2024 [email or web address] Information not available 07/15/2024 What Is Your Current Pack Years? 20-29packyears Information not available 10/01/2023 What Is Your Relationship Status? Information not available 10/01/2023 Do You Have Smoke And Carbon Monoxide Detectors In Your Home? Yes Information not available 10/01/2023 Are You Passively Exposed To Smoke? No Information no t available 10/01/2023 How Much Tobacco Do You Smoke? 0.25 PPD Information not available 10/01/2023 Do You Use Sunscreen Routinely? Yes Information not available 10/01/2023 Has Tobacco Cessation Counseling Been Provided? No Information not available 10/01/2023 How Many Years Have You Smoked Tobacco? 28 Information not available 10/01/2023 Sex: Female Functional Status Question Answer Note LastModified by Organizat ion Details LastModified Time Do you use any illicit or recreational drugs? No Information not available 10/01/2023 Do you or have you ever used any other forms of tobacco or nicotine? No Information not available 10/01/2023 What is your level of alcohol consumption? None Information not available 10/01/2023 Are you currently employed? No Information not available 10/01/2023 Are you able to care for yourself? Yes Has caregiver Information not available 10/01/2023 What is your exercise level? Occasional Information not available 10/01/2023 Mental Status Question Answer Note LastModified by Organization D etails LastModified Time Do you feel stressed (tense, restless, nervous, or anxious, or unable to sleep at night)? [id number] Information not available 10/01/2023 Family History Relationship Description Onset Age of this Age Resolved Age Notes LastModified by Organization Details LastModified Time Father Blood coagulation disorder [email or web address] Not available 2023 10:03:14 Mother Dementia [email or web address] Not available 10/01/2023 10:03:22 Medical History Condition Response Coronary Artery Disease N Other N High Blood Pressure Y Atrial Fibrillation N Thyroid Problems Y Kidney or Bladder Problems N GI Problems N Depression Y COPD N Blood Clots N Skin Problems N Eating Disorder N Anemia Y Heart Attack (NC) N Anxiety Disorder Y Diabetes Y Muscle, Joint, or Bone Problems Y Arthritis Y Seizures/Epilepsy N Acid Reflux (GERD) N Cancer N Stroke N Asthma N Allergies N ADHD N Substance Abuse N High Cholesterol N Hepatitis N Liver Disease N Schizophrenia N Headaches N Heart Failure N Osteoporosis N Gynecological HistoryNo gynecological history recorded. Obstetrics History GPAL:G 0 P 0 0 0 0 Immunizations Vaccine Type Date Status Note Provider Nam e and Address Organization Details Recorded Time Influenza, high-dose, quadrivalent, PF 1 completed Anca [place], [place] - [facility] 06/01/2024 12:16:51 Influenza, high-dose, quadrivalent, PF 3 completed [place] [facility] 06/01/2024 12:16:51 Influenza, high-dose, quadrivalent, PF 2 completed [place] [facility] 06/01/2024 12:16:51 COVID-19, mRNA, LNP-S, PF, 100 mcg/0.5mL dose or 50 mcg/0.25mL dose 1 completed [place] [facility] 06/01/2024 12:16:51 COVID-19, mRNA, LNP-S, PF, 100 mcg/0.5mL dose or 50 mcg/0.25mL dose 1 completed [place] [facility] 06/01/2024 12:16:51 COVID-19, mRNA, LNP-S, PF, 100 mcg/0.5mL dose or 50 mcg/0.25mL dose 2 completed [place] [facility] 06/01/2024 12:16:51 COVID-19, mRNA, LNP-S, PF, 100 mcg/0.5mL dose or 50 mcg/0.25mL dose 1 completed [place] [facility] 06/01/2024 12:16:51 Pneumococcal conjugate PCV20, polysaccharide [id number] conjugate, adjuvant, PF 4 completed [place] [facility] 06/01/2024 12:16:51 COVID-19, mRNA, LNP-S, bivalent, PF, 50 mcg/0.5 mL or 25mcg/0.25 mL dose 2 completed [place] [facility] 06/01/2024 12:16:51 RSV, recombinant, protein subunit RSVpreF, adjuvant reconstituted, 0.5 mL, PF 4 completed [place] [facility] 06/01/2024 12:16:51 COVID-19, mRNA, LNP-S, PF, 50 mcg/0.5 mL 3 completed [place] [facility] 06/01/2024 12:16:51 pneumococcal polysaccharide PPV23 0 completed [place] [facility] 06/01/2024 12:16:51 Pneumococcal conjugate PCV 13 9 completed [place] [facility] 06/01/2024 12:16:51 Influenza, high-dose, trivalent, PF 9 completed [place] [facility] 06/01/2024 12:16:51 Influenza, split virus, quadrivalent, PF 0 completed [place] [facility] 06/01/2024 12:16:51 Influenza, high-dose, trivalent, PF 4 completed Dede Hutson [place] [facility] 02/10/2024 11:59:08 Past Encounters Encounter ID Performer Location Encounter Start Date Encounter Closed Date Diagnosis/Indication Diagnosis SNOMED-CT Code Diagnosis ICD10 Code Diagnosis Note [id number] Gerardo Tobias MD [facility] [address] [place] [address] 10/01/2023 09:44:40 10/02/2023 15:40:02 Essential hypertension 31004567 I10 DC metoprolol 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 536209241 E11.9 Dyspnea on exertion 6084 5006 R06.09 Hypothyroidism 67135005 E03.9 [id number] Gerardo Tobias MD [facility] [address] [place] [address] 10/15/2023 10:23:11 10/23/2023 21:42:29 Chronic systolic heart failure 996220560 I50.22 Essential hypertension 55957238 I10 DC metoprolol Overweight 554274271 E66 .3 [id number] Casie Fuentes PA-C [facility] [address] [place] [address] 02/10/2024 10:51:45 02/12/2024 16:00:48 Administration of influenza vaccine 38961941 Z23 Diverticul ar disease of colon 103355746 K57.30 Iron defic iency anemia 92115671 D50.0 Nausea 518021999 R11.0 Overweight 852314749 E66 .3 [id number] Gerardo Tobias MD [facility] [address] [place] [address] 07/09/2024 15:26:31 07/12/2024 16:50:30 Benign paroxysmal positional vertigo 550887230 H81.13 [id number] Gerardo Tobias MD [facility] [address] [place] [address] 07/15/2024 11:07:51 07/16/2024 08:09:22 Hyperglycemia 16573242 R73.9 Congestion of nasal sinus 54558277 R09.81 Intermitte nt confusion 320498584 R41.0 Health Concerns Section Related Observation LastModified by Organization Detai ls LastModified Time None Recorded Concern Status LastModified by Organization Details LastModified Time None Recorded Advance Directives Directive None Recorded Payers Encounter Date Sequence Insurance Name Policy Number Policy Gates Covered Member ID Gates Member ID Guarantor Name 10/01/2023 1 [facility] (MEDICARE REPLACEMENT/A DVANTAGE - HMO) [id number] Jennifer Thornton [id number] Jennifer Thornton 10/15/2023 1 [facility] (MEDICARE REPLACEMENT/A DVANTAGE - HMO) [id number] Jennifer Thornton [id number] Jennifer Thornton 02/10/2024 1 [facility] (MEDICARE REPLACEMENT/A DVANTAGE - HMO) [id number] Jennifer Thornton [id number] Jennifer Thornton 07/09/2024 1 [facility] (MEDICARE REPLACEMENT/A DVANTAGE - HMO) [id number] Jennifer Munroeon [id number] Jennifer Thornton 07/15/2024 1 [facility] (MEDICARE REPLACEMENT/A DVANTAGE - O) [id number] Jennifer Norberto [id number] Jennifer Thornton Notes Date Note Type Note Provider Name and Address Organization Details Recorded Time 10/01/2023 text/html transfer from [facility]...htn and hypothyroid...dep ression...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 Casie Fuentes PA-C Attn: [address] [place], [address], [facility] 10/01/2023 10:42:00 10/15/2023 text/html follow up from last week...see BNP...echo and cardiology upcoming...doing better bp bess and fluid bess... Casie Fuentes PA-C Attn: [address] [place], [address], [facility] 10/15/2023 10:53:21 02/10/2024 text/html admiited for bad diverticulitis... no follow up was scheduled...relea sed with cbc at less than 8...cant hold food down at times... Casie Fuentes PA-C Attn: [address] [place], [address], [facility] 02/10/2024 11:46:55 07/09/2024 text/html dizzy...just started...used to take meclizine for this...feels like she is going to fall..was at chiro and stood up and thought she was going to fall down...no headache..no abnormal PITT.. Casie Fuentes PA-C Attn: [address] [place], [address], [facility] 07/09/2024 16:22:57 07/15/2024 text/html dizzy achy sinus congestion meclizine is not helping...describ es some urinary urgency Casie Fuentes PA-C Attn: Accounting,[address] [facility], [place], [address], [facility] 07/15/2024 11:57:05 OBGyn Episode No OBEpisode recorded.
--- OUTSIDE RECORDS SUMMARY | 2024-09-24 10:42 | XMS_ITS | Referral Summary ---
Author Organization [facility] [address] [facility] [address] Address [address] [place] [address] Phone Care Team Providers Care Geoduck Diver Name Role Phone Pierre Fuentes Primary Care Provider [phone] Encounters Date Type Department Care Team Description 08/30/2024 Telephone [facility] Orthopedics and Sports Medicine [address] [facility] [address] [place] [address] Humble Marquis MD 08/21/2024 9:21 PM CDT - 08/21/2024 11:59 PM CDT Hospital Encounter [facility] Emergency, Room R Discharge Disposition: Discharge to home or self care 08/21/2024 2:03 PM CDT - 08/21/2024 9:21 PM CDT Emergency [facility] Emergency Department [address] [place] [address] Willie Noe MD Elbow fracture, left, closed, initial encounter (Primary Dx); Head injury, initial encounter; Fall, initial encounter; Inability to access health care due to transportation insecurity Discharge Disposition: Discharge to a short term hospital for IP from Last 3 Months Allergies Active Allergy Reactions Criticality Noted Date [...] do not want to refer her to [facility] to her Ear Nose and Throat or medical engineer take a look at this so we will for for her to Dr. Xavier at [facility] Persistent cough 08/26/2023 Assessment & Plan [...] acute findings on exam. Keep follows with courtesy car driver. Encouraged flonase and antihistamine as needed for rhinitis. Assessment & Plan (05/16/2022 5:59 PM AR MANAGER): Patient did follow through in see the courtesy car driver. 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 Assessment & Plan (06/15/2021 2:32 PM AR MANAGER): History and physical completed patient's health risk [...] walking. Assessment & Plan (04/06/2018 6:26 PM AR MANAGER): Patient in the past with complaint of [...] . She was referred to Neurology at [facility] Patient not going to follow through on [...] that. Assessment & Plan (04/06/2018 6:26 PM AR MANAGER): Patient on previous visits frequently complained of dyspnea today this is not a problem. Assessment & Plan (06/21/2017 4:55 PM AR MANAGER): Nonspecific dyspnea check a BNP level Type [...] 6.5 Assessment & Plan (05/16/2022 5:57 PM AR MANAGER): Diabetes very well controlled hemoglobin HgbA1c 6.5 Assessment & Plan (04/19/2022 12:23 PM AR MANAGER): Diabetes remains well controlled HgbA1c 6.5 no change in therapy Assessment & Plan (11/17/2021 3:40 PM CDT): Update patient's hemoglobin HgbA1c get a BMP would like to know patient's renal functions.. Assessment & Plan (06/15/2021 2:33 PM AR MANAGER): Patient's diabetes is well controlled past 4 [...] today Assessment & Plan (03/10/2020 5:27 PM AR MANAGER): Check patient's HgbA1c today. Is not bring her glucometer today. Assessment & Plan (11/19/2019 2:55 PM CDT): Glucometer was reviewed blood pressure well control no change in therapy Assessment & Plan (10/07/2019 5:05 PM CDT): Diabetes is continues to be well controlled metformin discontinue. Assessment & Plan (05/06/2019 10:54 AM AR MANAGER): Patient's HgbA1c is been excellent him discontinue [...] 160S.. Assessment & Plan (04/06/2018 6:25 PM AR MANAGER): Patient glucometer readings very good in the [...] range Assessment & Plan (03/10/2020 5:26 PM AR MANAGER): TSH levels have been in therapeutic range will update lab today. Assessment & Plan (07/19/2019 6:07 PM CDT): Update patient's TSH level Assessment & Plan (03/03/2019 2:21 PM CDT): Patient's hypothyroid remains a well controlled Assessment & Plan (08/10/2018 5:57 PM CDT): TSH level in therapeutic range recheck on the next visit. Assessment & Plan (04/06/2018 6:24 PM AR MANAGER): TSH level will be checked today. Assessment [...] hypertension. Assessment & Plan (04/19/2022 12:22 PM AR MANAGER): Blood pressure is elevated today will make no changes. Here back in one-month Assessment & Plan (11/17/2021 3:40 PM CDT): Blood pressure well controlled patient continues present therapy. Assessment & Plan (06/15/2021 2:35 PM AR MANAGER): Hypertension remains well control no change in therapy Assessment & Plan (03/27/2021 4:47 PM AR MANAGER): Blood pressure remains well controlled increase in pain over joint special left hip. Assessment & Plan (02/12/2021 5:48 PM CDT): Hypertension remains well control no change in therapy Assessment & Plan (03/10/2020 5:25 PM AR MANAGER): Blood pressure well controlled patient has no [...] CDT): I received several phone calls from [facility] last week in a week for [...] therapy. Assessment & Plan (04/06/2018 6:24 PM AR MANAGER): Hypertension is unchanged. Continue current treatment regimen. [...] pressure. Assessment & Plan (03/09/2017 9:20 PM AR MANAGER): Hypertension is unchanged. Continue current treatment regimen. Dietary sodium restriction. Continue current medications. Blood pressure will be reassessed at the next regular appointment. Patient's patient's blood pressure is well controlled. Diverticulosis of intestine 03/09/2012 Overview (08/09/2016): Diverticulosis Osteoarthritis 03/09/2012 Overview (08/09/2016): Osteoarthritis Assessment & Plan (03/27/2021 4:46 PM AR MANAGER): Patient a of increasing pain in left [...] 08/22/2020 Assessment & Plan (06/22/2019 4:25 PM AR MANAGER): S/p fall that occurred greater than one month. She reports numbness and tingling associated in the RLE. Reflex intact, ROM normal, pulses present and no discoloration. Given known injury we will do xray to r/o any acute fracture. Localized edema 06/22/2019 02/12/2021 Assessment & Plan (06/22/2019 4:24 PM AR MANAGER): Patient with bilateral lower extremity R>L that [...] 08/22/2020 Assessment & Plan (03/10/2020 5:26 PM AR MANAGER): Patient's nonspecific hip pain very mild. Tylenol as needed. Patient is very concerned about her gait. Patient's gait is normal and consistent with someone 85 years of age. Head congestion 05/06/2019 11/19/2019 Assessment & Plan (05/06/2019 10:51 AM AR MANAGER): Patient having a lot head congestion mainly [...] 08/20/2022 Assessment & Plan (05/16/2022 5:58 PM AR MANAGER): Lexapro has made a significant improvement in his patient's mood anxiety is less depression is gone will continue 5 mg daily. Assessment & Plan (04/19/2022 12:22 PM AR MANAGER): Patient is not having outbreaks of anger diabetes gotten worse and depression symptoms I am going to discontinue BuSpar start her on Lexapro 5 mg daily see her back in one-month Assessment & Plan (11/17/2021 3:41 PM CDT): Patient's recently diet he been sick for several years. Her anxiety level least 50-75%. Patient is here with her medical power personal injury attorney who concurs that since her passed patient's more focused and anxiety levels down. Assessment & Plan (06/15/2021 2:35 PM AR MANAGER): Patient's anxiety days focus on her 's [...] is not right. Patient is seen the assembler watch train as sure vision she informs me that [...] feeling tired she is not any more [place] than this. He has had this complaint [...] 07/19/2019 Assessment & Plan (05/06/2019 10:52 AM AR MANAGER): Advised patient totally stop metformin and simvastatin. 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 Call pharmacist [place] pharmacy to give this patient Metamucil/FiberCon type [...] 07/20/2017 Assessment & Plan (06/21/2017 4:54 PM AR MANAGER): Patient may very well have acute cystitis I am going to not wait for urine results started on doxycycline 100 milligrams twice a day. See assessment on the left flank pain Left lower quadrant pain 05/30/2017 Assessment & Plan (06/21/2017 4:50 PM AR MANAGER): Patient complains of urinary urgency frequency and [...] deficiency Hypercholesterolemia 02/25/2012 019 Overview (08/09/2016): Hypercholesteremia Immunizations Immunization Administration Dates Next Due Influenza, [...] Adjuvanted, PF, IM (Arexvy) 09/02/2023 Tdap 10/26/2013 Social History Tobacco Use Types Packs/Day Years Used Date Smoking Tobacco: Former Smokeless Tobacco: Never Tobacco Cessation:Counseling Given: Not Answered Comments:Smoking History Packs/day: 1 Packs Alcohol Use Standard Drinks/Week Comments No 0 (1 standard drink = 0.6 oz pur e alcohol) [facility] Utilities Answer Date Recorded In the past 12 months has [email or web address], gas, oil, or water [employer] threatened to shut off services in your [...] often do you attend chur ch or gnosticism services? Never 01/19/2024 Do you belong to any clubs o r organizations such as cheondoism groups, unions, fraternal or athletic groups, or [...] any time in the past 12 m [facility], were you homeless or living in a fpc (including now)? No 01/19/2024 Personal Safety Answer Date Recorded Have you ever been in or are you currently in a harmful physical or emotional relationship or is someone making you feel afraid or unsafe? Denies 08/21/2024 Comments No Sex and Gender Information Value Date Recorded Sex Assigned at Not on file Legal Sex Female 7:40 PM AR MANAGER Gender Identity Not on file Sexual Orientation Not on file Last Filed Vital Signs Vital Sign Reading [...] 08/21/2024 2:06 PM CDT Plan of Treatment Not on file Procedures Procedure Name Priority Date/Time Associated Diagnosis Comments [place] CRITICAL CARE ILL/INJURED PATIENT INIT 30-74 MIN [...] Menopause LIPID PANEL Routine 03/10/2020 1:58 PM AR MANAGER Type 2 diabetes mellitus with hyperosmolarity without coma, without long-term current use of insulin (HCC) ALBUMIN CREATININE RATIO, URINE Routine 03/02/2019 2:52 PM CDT Type 2 diabetes mellitus with hyperosmolarity without coma, without long-term current use of insulin (HCC) from Last 3 Months or Most Recently Relevant to Health Maintenance Results * [place] CRITICAL CARE ILL/INJURED PATIENT INIT 30-74 MIN [...] Noe MD LAB BLOOD ORDERABLES Final Result [facility] ([place]) [address] [facility] Department [place] [address] * Influenza A/B, RSV, and COVID-19 PCR Nasopharyngeal (08/21/2024 7:03 PM CDT) COVID-19 RNA Negative Negative Influenza A RNA Negative Negative [facility] ([facility]) Influenza B RNA Negative Negative [facility] ([facility]) RSV RNA Negative Negative [facility] ([facility]) Comment: Interpretive data: Testing performed by [facility]. This test is performed using the [employer] Xpert Xpress CoV-2/Flu/RSV plus assay. This is a multiplex, real- time reverse transcriptase PCR assay intended for the qualitative detection of nucleic acid from SARS-CoV-2, influenza A, influenza B, and respiratory syncytial virus. This assay has been cleared by the [place] Food and Drug administration. The performance characteristics have been verified by the [facility]. Results must be considered in the clinical context, and a negative result does not rule out infection. Interpretive Data last revised 2023 Nasopharyngeal 08/21/2024 7: 03 PM CDT 08/21/2024 7:06 PM CDT Narrative [facility] ([place]) - 08/21/2024 7:56 PM CDT Is the Patient experiencing symptoms consistent with COVID?->Yes Willie Noe MD LAB MICROBIOLOGY - GENERAL ORDERABLES Final Result Performing Organization Address [facility] de Phone Number [facility] ([place]) [address] [facility] [place] [address] * ECG 12 lead (08/21/2024 6:48 PM CDT) 08/21/2024 6:48 PM CDT Narrative [facility] - 08/23/2024 7:01 AM CDT Vent Rate: 63 bpm RR Interval: 940 msec [place] Interval: 164 msec QRS Duration: 77 msec QT Interval: 325 msec QTC Interval: 333 msec P-R-T Tabor: 131 - 174 - 108 degrees IMPRESSION: SINUS RHYTHM ARM LEADS REVERSED [INVERTED P AND QRS IN I] NORMAL ECG NO CHANGE FROM PREVIOUS TRACING NOTED Electronically Signed By: Carlos Alberto Avery MD us Willie Noe MD ECG ORDERABLES Final Resul t Performing Organization Address [facility] de Phone Number [facility] [employer] * (ABNORMAL) Troponin T high-sensitivity 4-hour (08/21/2024 [...] 6:42 PM CDT 08/21/2024 6:59 PM CDT us Willie Noe MD LAB BLOOD ORDERABLES Final Result Performing Organization Address [facility] Co de Phone Number [facility] ([place]) [address] [facility] [place] [address] * (ABNORMAL) Troponin T high-sensitivity 2-hour (08/21/2024 4:50 PM CDT) Trop T hs 30(H) <=14 ng/L Comment: Interpretive Data For further hscTnT resources including the diagnostic algorithm and an aid in interpretation, copy and paste this link: https://nrl.testcatalog.org/show/hsTrop Current Interpretive Data last revised 2020. Trop T hs delta 0 ng/L [facility] ([facility]) Trop T hs interp Insignificant [facility] ([place]) Blood 08/21/2024 4:50 PM CDT 08/21/2024 4:55 PM CDT us Willie Noe MD LAB BLOOD ORDERABLES Final Result [facility] ([place]) [address] [facility] [place] [address] * CT Chest Abdomen Pelvis WO Contrast [...] German Sotelo M.D. KR: HIEN Report ID: [id number] Reading Location: [place] [address] Procedure Note German Sotelo MD - 08/21/2024 [...] German Sotelo M.D. KR: HIEN Report ID: [id number] Reading Location: [id number] Willie Noe MD IMG CT PROCEDURES Final [...] Electronically signed by German Sotelo M.D. KR: KR Report ID: [id number] Reading Location: [place] [address] Procedure Note German Sotelo MD - 08/21/2024 [...] German Sotelo M.D. KR: HIEN Report ID: [id number] Reading Location: [id number] Willie Noe MD IMG CT PROCEDURES Final Res ult * ECG 12 lead (08/21/2024 2:44 PM CDT) 08/21/2024 2:44 PM CDT Narrative [facility] - 08/23/2024 7:01 AM CDT Vent Rate: 74 bpm RR Interval: 803 msec [place] Interval: 0 msec QRS Duration: 81 msec QT Interval: 318 msec QTC Interval: 346 msec P-R-T Tabor: [address]2815 - 29 - 52 degrees IMPRESSION: Baseline artifact, probable sinus rhythm with first-degree AV block LOW QRS VOLTAGE IN PRECORDIAL LEADS [QRS DEFLECTION < 1.0 mV IN CHEST LEADS] NONSPECIFIC ST \T\ T-WAVE ABNORMALITY Recommend repeat EKG with stable baseline for accurate rhythm assessment Electronically Signed By: Carlos Alberto Avery MD Willie Noe MD ECG ORDERABLES Final Resul t [facility] * XR Chest 1 Vw Portable [...] Erik Poon M.D. MZ: RUEL Report ID: [id number] Reading Location: [place] [address] Procedure Note Erik Poon MD - 08/21/2024 [...] Erik Poon M.D. MZ: RUEL Report ID: [id number] Reading Location: [place] [address] us Willie Noe MD IMG XR PROCEDURES [...] Erik Poon M.D. MZ: RUEL Report ID: [id number] Reading Location: [id number] Procedure Note Erik Poon MD - 08/21/2024 [...] Erik Poon M.D. MZ: RUEL Report ID: [id number] Reading Location: [id number] us Willie Noe MD IMG XR PROCEDURES [...] Erik Poon M.D. MZ: RUEL Report ID: [id number] Reading Location: [id number] Procedure Note Erik Poon MD - 08/21/2024 [...] Erik Poon M.D. MZ: MZ Report ID: [id number] Reading Location: [place] [address] Willie Noe MD IMG XR PROCEDURES Final Res ult * (ABNORMAL) Troponin T high-sensitivity series (baseline, 2hr, 4hr, 6hr) (08/21/2024 2:31 PM CDT) Pathologist [facility] Trop T hs 30(H) <=14 ng/L Comment: Interpretive Data For further hscTnT resources including the diagnostic algorithm and an aid in interpretation, copy and paste this link: https://nrl.testcatalog.org/show/hsTrop Current Interpretive Data last revised 2020. Blood 08/21/2024 2:31 PM CDT 08/21/2024 2:35 PM CDT Willie Noe MD LAB BLOOD ORDERABLES Final Result [facility] [place]) [address] [facility] [place] [address] * (ABNORMAL) eGFR (08/21/2024 2:31 PM CDT) Pathologist [facility] eGFR 38(L) >=60 mL/min/1. 73 m2 Comment: [...] Noe MD LAB BLOOD ORDERABLES Final Result [facility] ([place]) [address] [facility] [place] [address] * (ABNORMAL) Differential, auto (08/21/2024 2:31 PM [...] MD LAB BLOOD ORDERABLES Final Result [facility] ([place]) [address] [facility] Department [place] [address] * (ABNORMAL) Pro B-type natriuretic peptide (08/21/2024 [...] as advanced age. - References: 1. Molly GRANT et.al. Eur Heart J. 2006:27:330-337. 2. Gage RW, Leny RICE. J. AM Cris Cardiol: Cardiovasc Imag. 2009;2: 216- 225. Interpretive Data Last Revised Date: 2017. Blood 08/21/2024 2:31 PM CDT 08/21/2024 5:50 PM CDT us Willie Noe MD LAB BLOOD ORDERABLES Final Result [facility] ([place]) [address] [facility] Department [place] [address] * (ABNORMAL) CBC with auto differential (08/21/2024 2:31 PM CDT) WBC 14.81(H) 3.80 - 9.90 K/cumm Hgb 13.2 11.9 - 15.5 g/dL [facility] ([facility]) Hct 39.8 35.6 - 45.5 % [facility] ([facility]) Plt 271 150 - 400 K/cumm [facility] ([facility]) MPV 9.2 9.1 - 12.3 fL [facility] ([facility]) RBC 4.42 3.90 - 5.20 M/cumm [facility] ([place]) MCV 90.0 81.3 - 96.4 fL [facility] ([place]) MCH 29.9 27.1 - 33.3 pg [facility] ([place]) MCHC 33.2 32.3 - 35.7 g/dL [facility] ([place]) RDW CV 12.4 11.1 - 14.9 % [facility] ([place]) RDW SD 41.4 35.7 - 48.1 fL [facility] ([place]) NRBC abs 0.00 0.00 - 0.01 K/cumm [facility] ([place]) Blood 08/21/2024 2:31 PM CDT 08/21/2024 2:34 PM CDT Willie Noe MD LAB BLOOD ORDERABLES Final Result Performing Organization Address [facility] de Phone Number [facility] ([place]) [address] [facility] [address] * Protime-INR (08/21/2024 2:31 PM CDT) PT [...] BLOOD ORDERABLES Final Result Performing Organization Address City/[facility]/ZIP Co de Phone Number [facility] ([place]) [address] [facility] [place] [address] * (ABNORMAL) Creatine kinase (CK), total (08/21/2024 2:31 PM CDT) CK 1,102(H) 30 - 200 Units/L Blood 08/21/2024 2:31 PM CDT 08/21/2024 2:35 PM CDT Willie Noe MD LAB BLOOD ORDERABLES Final Result [facility] ([facility]) [address] [facility] Department [place] [address] * (ABNORMAL) Comprehensive metabolic panel (08/21/2024 2:31 PM CDT) Sodium 137 135 - 145 mmol/L Potassium, pl 3.6 3.3 - 4.9 mmol/L [facility] ([place]) Chloride 98 97 - 110 mmol/L [facility] ([place]) CO2 26 22 - 32 mmol/L [facility] ([place]) Anion gap 13 2 - 15 mmol/L [facility] ([place]) BUN 14 6 - 25 mg/dL [facility] ([place]) Creatinine 1.34(H) 0.60 - 1.10 mg/dL [facility] ([place]) Glucose 157 70 - 199 mg/dL [facility] ([facility]) Comment: Interpretive Data Fasting glucose >/= [...] 2022. Calcium 8.9 8.5 - 10.3 mg/dL [facility] ([place]) Bilirubin, total 1.0 0.1 - 1.2 mg/dL [facility] ([place]) Protein, pl 6.5 6.5 - 8.5 g/dL [facility] ([place]) Albumin 3.5 3.5 - 5.0 g/dL [facility] ([facility]) Alk phos 83 40 - 130 Units/L [facility] ([place]) ALT 18 7 - 45 Units/L [facility] ([place]) AST 41 10 - 45 Units/L [facility] ([facility]) Comment:Slightly Hemolyzed S pecimen Blood 08/21/2024 2:31 PM CDT 08/21/2024 2:35 PM CDT us Willie Noe MD LAB BLOOD ORDERABLES Final Result [facility] ([place]) [address] [facility] [place] [address] * (ABNORMAL) Hemoglobin A1c (08/25/2023 2:54 PM CDT) Hgb A1C 6.5(H) 4.0 - 5.6 % Comment:Testing performed by : [facility], [address] [place] [address]., [id number] Estimated Average Glucose 140 mg/dL JIN Comment: The ADA recommends reporting an estimated Average Glucose (eAG) with all Hemoglobin A1c results using the equation derived from a study of 507 normal and diabetic adults. Minority populations were underrepresented and children were not included. (Diabetes Care 31:6175-7539, 2008). The eAG is not equivalent to a fasting glucose. Testing performed by: [address] [address] Blood 08/25/2023 2:54 PM CDT 08/25/2023 5:36 PM CDT us Quincy Butt MD LAB BLOOD ORDERABLES Final Result Performing Organization Address [facility]/ZIP Co de Phone Number [address] [place] [place] [address] * Dexa Axial Skeleton Bone Density 1 or 2 Site (02/15/2021 10:53 AM CDT) Anatomical Region Laterality Modality Body N/A Other 02/15/2021 12:5 0 PM CDT Narrative 02/15/2021 12:52 PM CDT EXAM DESCRIPTION: DEXA AXIAL SKELETON BONE DENSITY 1 OR MORE SITES REASON FOR STUDY: 86 year old female with given history of osteoarthritis, postmenopausal state. 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 MD: Report ID: [id number] Reading Location: [id number] Procedure Note Tavon Ferrera MD - 02/15/2021 EXAM DESCRIPTION: DEXA AXIAL SKELETON BONE DENSITY 1 OR MORE SITES REASON FOR STUDY: 86 year old female with given history ofosteoarthritis, postmenopausal state. 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 MD: Report ID: [id number] Reading Location: [id number] Quincy Butt MD IMG DXA PROCEDURES Final R esult * (ABNORMAL) Lipid panel (03/10/2020 1:58 PM AR MANAGER) Cholesterol 233(H) 30 - 199 mg/dL JIN Comment: Interpretive Data Ages < [...] on 2017. Triglycerides 216(H) <=149 mg/dL JIN Comment: Interpretive Data Ages < [...] on 2017. HDL 56 >=40 mg/dL JIN MENDOZA Comment: Interpretive Data Ages [...] 2017. LDL, calculated 134(H) <=129 mg/dL JIN MENDOZA Comment: Interpretive Data Ages [...] revised on 2017. Non-HDL Cholesterol 177 mg/dL JNI MENDOZA Comment: Interpretive Data Ages < or [...] revised on 2017. Chol/HDL ratio 4 JIN MENDOZA Blood specimen (specimen) 03/10/2020 1:58 PM AR MANAGER 03/10/2020 4:49 PM AR MANAGER us Quincy Butt MD LAB BLOOD ORDERABLES Final Result [facility] [id number] [place] [address] * Albumin Creatinine Ratio, Urine (03/02/2019 2:52 PM CDT) Albumin Ur 28.1 mg/L JIN Comment: Interpretive Data No reference range established. Current interpretive data was last revised 2018. Creatinine Ur 148.4 mg/dL JIN Comment: Interpretive Data No reference range established. Current interpretive data was last revised 2018. Albumin Creatinine Ratio, Ur 19 1 - 29 mg/g JIN Urine 03/02/2019 2:52 PM CDT 03/02/2019 8:54 PM CDT Quincy Butt MD LAB URINE ORDERABLES Final Result [facility] [id number] [place] [address] from Last 3 Months or Most Recently Relevant to Health Maintenance Insurance COMMERCIAL GENERIC MEDICARE MEDICARE ADVANTAGE MEDICARE ADVANTAGE Advance Directives For more information, please contact: [phone] * Full Code (Latest Code Status on File) Date Activated Date Inactivated Comments 01/20/2024 4:19 PM 01/24/2024 6:00 PM * Full Code Date Activated Date Inactivated Comments 01/16/2024 9:42 PM 01/20/2024 4:19 PM Care Teams Geoduck Diver Relationship Specialty Start Date End Date Pierre Fuentes PA [address] [place] [address] PCP - General Family Practice 10/01/23
--- OUTSIDE RECORDS SUMMARY | 2024-09-24 10:43 | XMS_ITS | Encounter Summary ---
[facility] [address] [place] [address] Phone Care Team Providers Care Press Service Reader Name Role Phone Quincy Butt MD Primary Care Provider [phone] Pierre Fuentes Primary Care Provider [phone] Encounter Details Date Type Department Care Team (Late st Contact Info) Description 07/20/2021 Orders Only [facility] [address] [address] Scanning, Provider Social History Tobacco Use Types Packs/Day Years Used Date Smoking Tobacco: Former Smokeless Tobacco: Never Comments:Smoking History Pac ks/day: 1 Packs Alcohol Use Standard Drinks/Week Comments No 0 (1 standard drink = 0.6 oz pur e alcohol) PHQ-2 Answer Date Recorded PHQ-2 Total Score (If total score is 3 or more points, staff should administer the PHQ-9) 6 06/15/2021 Comments No Sex and Gender Information Value Date Recorded Sex Assigned at Not on file Legal Sex Female 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 Gender Identity Not on file Sexual Orientation Not on file documented as of this encounter Plan of Treatment Not on file documented as of this encounter Procedures Procedure Name Priority Date/Time Associated Diagnosis Comments PROCEDURE - RESULT 07/20/2021 documented in this encounter Results * PROCEDURE - RESULT (07/20/2021) us Provider Scanning Final Result documented in this encounter Visit Diagnoses Not on filedocumented in this encounter Additional Health Concerns Infection Onset Date Last Indicated Resolved Time COVID: Suspected 08/21/2024 08/21/202408/21/2024 7:57 PM CDT documented as of this encounter Care Teams Press Service Reader Relationship Specialty Start Date End Date Quincy Butt MD PCP - General 08/02/16 09/30/23 Pierre Fuentes PA [address] [place] [address] PCP - General Family Practice 10/01/23 documented as of this encounter
--- OUTSIDE RECORDS SUMMARY | 2024-09-24 10:43 | XMS_ITS | Clinical Summary ---
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
--- OUTSIDE RECORDS SUMMARY | 2024-09-24 10:43 | XMS_ITS | Encounter Summary ---
Author Organization [employer] Address [address] [place] [address] Care Team Providers Care Statistical Financial Analyst Name Role Phone Unavailable Primary Care Provider Unavailabl e Encounter Details Date Type Department Care Team (Late st Contact Info) Description 03/26/1998 Outpatient Historical [facility] Jack Olguin MD [address] [place] [id number] [address], Authorized P NO ADDRESS ON FILE Procedure not carried out for other reasons (Primary Dx) Social History Tobacco Use Types Packs/Day Years Used Date Smoking Tobacco: Never Assessed Comments Unknown Sex and Gender Information Value Date Recorded Sex Assigned at Not on file 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
--- OUTSIDE RECORDS SUMMARY | 2024-09-24 10:43 | XMS_ITS | Clinical Summary ---
Author Organization [facility] Address [address] [place] [address] Phone Care Team Providers Care Nitrate Operator Name Role Phone Quincy Butt MD Primary Care Provider Allergies Active Allergy Reactions Criticality Noted Date Comments Penicillin G Other (see Comments),Itching Low 09/12/2024 [place] DOESN'T REMEMBER Sulfa Antibiotics Other (see Comments) DOESN'T REMEMBER Medications levothyroxine (SYNTHROID) 25 MCG Tablet Take 25 mcg by mouth daily. 07/22/19 18 Active lisinopril (PRINIVIL, ZESTRIL) 20 MG Tablet Take 20 mg by mouth daily. 07/22/19 18 Active meclizine (ANTIVERT) 25 MG Tablet Take 25 mg by mouth 4 times daily as needed for Dizziness. 07/15/19 18 Active metoprolol Succinate (TOPROL-XL) 25 MG TABLET SR 24 HR Take 25 mg by mouth daily. 09/12/19 19 Active amLODIPine (NORVASC) 2.5 MG Tablet Take 2.5 mg by mouth daily. Active donepezil (ARICEPT) 5 MG Tablet Take 5 mg by mouth nightly. 09/22/19 24 Active escitalopram (LEXAPRO) 10 MG Tablet Take 10 mg by mouth daily. 09/09/19 24 Active FeroSul 325 (65 Fe) MG Tablet Take 325 mg by mouth daily. 08/19/19 25 Active oxybutynin (DITROPAN XL) 15 MG TABLET SR 24 HR Take 15 mg by mouth daily. Active rOPINIRole (REQUIP) 2 MG Tablet Take 2 mg by mouth nightly. 04/20/20 24 Active tolterodine (DETROL LA) 4 MG CAPSULE SR 24 HR Take 4 mg by mouth daily. 08/28/19 25 Active aspirin EC 81 MG Tablet Delayed Response Take 1 Tablet by mouth daily. 100 Tablet 09/18/19 25 Active Empagliflozin (JARDIANCE) 10 MG Tablet Take 1 Tablet by mouth daily. 30 Tablet 09/18/19 25 Active furosemide (LASIX) 40 MG Tablet Take 1 Tablet by mouth daily as needed for Other (weight gain of 2 lbs or more or increased lower extremitiy swelling or shortness of breath). 90 Tablet 09/17/19 25 Active magnesium oxide (MAG-OX) 400 (240 Mg) MG Tablet Take 1 Tablet by mouth daily. 30 Tablet 09/18/19 25 Active spironolactone (ALDACTONE) 25 MG Tablet Take 1 Tablet by mouth daily. 90 Tablet 09/18/19 25 Active melatonin 3 MG Tablet Take 1 Tablet by mouth nightly as needed for Other (sleep). 30 Tablet 09/19/19 25 Active busPIRone (BUSPAR) 5 MG Tablet Take 5 mg by mouth 2 times daily. 05/22/19 18 025 Discontinued(Me d List Clean Up) metFORMIN (GLUCOPHAGE) 1000 MG Tablet Take 1,000 mg by mouth 2 times daily. 05/26/19 025 Discontinued(Me d List Clean Up) simvastatin (ZOCOR) 20 MG Tablet Take 20 mg by mouth nightly. 07/02/19 18 025 Discontinued(Me d List Clean Up) Cholecalcifero l (VITAMIN D PO) Take 1,000 Int'l Units by mouth daily. 025 Discontinued(Me d List Clean Up) aspirin EC 81 MG Tablet Delayed Response Take 81 mg by mouth daily. 09/17/19 025 Discontinued(Du plicate Order) acetaminophen (TYLENOL 8 HOUR) 650 MG Tablet Controlled Release Take 650 mg by mouth every 6 hours as needed for Mild or more severe pain. 09/30/192 025 Discontinued(Me d List Clean Up) fluorometholon e (FML) 0.1 % Suspension Place 1 Drop in affected eye(s) 4 times daily. 025 Discontinued(Me d List Clean Up) glycerin-hypro mellose-PEG 400 (HM DRY EYE RELIEF) 0.2-0.2-1 % Solution Place 1 Drop in affected eye(s) as needed for Other (Dry eyes). 025 Discontinued(Me d List Clean Up) furosemide (LASIX) 40 MG Tablet Take 40 mg by mouth daily. 09/05/19 25 025 Discontinued Active Problems Problem Noted Date Diagnosed Date Bradycardia 09/18/2024 COPD exacerbation 09/16/2024 Chronic diastolic (congestive) heart failure CKD (chronic kidney disease) stage 3, GFR 30-59 ml/min 09/16/2024 Acute respiratory failure with hypoxia and hyper capnia 09/12/2024 Closed fracture of olecranon process of right ulna with routine healing 09/01/2018 Pigmented skin lesions 10/23/2017 Encounters Date Type Department Care Team Description 09/12/2024 7:07 AM CDT - 09/19/2024 12:54 PM CDT Hospital Encounter [facility] Med Surg [address] [id number] Opal Anthony MD Patel, Satyen V, MD Dianati, Behfar, MD Acute respiratory failure with hypoxia and hypercapnia (HCC) Discharge Disposition: Discharged/Transferr ed to [facility] 09/12/2024 Travel from Last 3 Months Family History Medical History Relation Name Comments Heart Attack Father Relation Name Status Comments Father Mother Social History Tobacco Use Types Packs/Day Years Used Date Smoking Tobacco: Former Cigarettes 1 30 0 10/23/1969 - 10/24/1999 Smokeless Tobacco: Never Alcohol Use Standard Drinks/Week Comments No 0 (1 standard drink = 0.6 oz pur e alcohol) [facility] Utilities Answer Date Recorded In the past 12 months has e electric, gas, oil, or water company threatened to shut off services in your home? Patient declined 09/12/2024 Social Connection and Isolation Panel [NHANES] A nswer Date Recorded In a typical week, how many times do you talk on the phone with family, friends, or neighbors? Patient declined 09/12/2024 How often do you get togethe r with friends or relatives? Patient declined 09/12/2024 How often do you attend druze or hoahaoism serv ices? Patient declined 09/12/2024 Do you belong to any clubs o r organizations such as druze groups, unions, fraternal or athletic groups, or school groups? Patient declined 09/12/2024 How often do you attend meet ings of the clubs or organizations you belong to? Patient declined 09/12/2024 Are you , , di vorced, , never , or living with a partner? Patient declined 09/12/2024 AUDIT-C Answer Date Recorded Q1: How often do you have a drink containing alc ohol? Patient declined 09/12/2024 Q2: How many drinks containi ng alcohol do you have on a typical day when you are drinking? Patient declined 09/12/2024 Q3: How often do you have si x or more drinks on one occasion? Patient declined 09/12/2024 Overall Financial Resource Strain (CARDIA) Answe r Date Recorded How hard is it for you to pa y for the very basics like food, housing, medical care, and heating? Patient declined 09/12/2024 [facility] - Occupational Stress Questionnaire Answer Date Recorded Do you feel stress - tense, restless, nervous, or anxious, or unable to sleep at night because your mind is troubled all the time - these days? Patient declined 09/12/2024 Exercise Vital Sign Answer Date Recorde d On average, how many days pe r week do you engage in moderate to strenuous exercise (like a brisk walk)? Patient declined On average, how many minutes do you engage in exercise at this level? Patient declined 09/12/2024 Hunger Vital Sign Answer Date Recorded Within the past 12 months, y ou worried that your food would run out before you got the money to buy more. Patient declined Within the past 12 months, t he food you bought just didn't last and you didn't have money to get more. Patient declined 03/2025 PRAPARE - Transportation Answer Date Re corded In the past 12 months, has l ack of transportation kept you from medical appointments or from getting medications? Patient declined 09/12/2024 In the past 12 months, has l ack of transportation kept you from meetings, work, or from getting things needed for daily living? Patient declined 09/12/2024 Housing Stability Vital Sign Answer Josafat e Recorded In the last 12 months, was t here a time when you were not able to pay the mortgage or rent on time? Patient declined 09/13/19 25 In the past 12 months, how m any times have you moved where you were living? 1 09/12/2024 At any time in the past 12 m [facility], were you homeless or living in a long term (including now)? Patient declined 09/12/2024 Comments No Sex and Gender Information Value Date Recorded Sex Assigned at Not on file Legal Sex Female 12:32 AM CDT Gender Identity Not on file Sexual Orientation Not on file Last Filed Vital Signs Vital Sign Reading Time Taken Comments Blood Pressure 148/66 09/19/2024 7:22 AM CDT Pulse 60 09/19/2024 7:22 AM CDT Temperature 36.5 C (97.7 F) 09/19/2024 7:22 AM CDT Respiratory Rate 20 09/19/2024 7:22 AM CDT Oxygen Saturation 95% 09/19/2024 7:22 AM CDT Inhaled Oxygen Concentration - - Weight 72.4 kg (159 lb 11.2 oz) 09/19/2024 4:05 AM CDT Height 157.5 cm (5' 2 ) 09/12/2024 2:20 PM CDT Body Mass Index 29.21 09/12/2024 2:20 PM CDT Plan of Treatment Health Maintenance Due Date Last Done Comments Hepatitis C Virus (HCV) Screening 1935 Zoster Immunization (1 of 2) 02/05/1986 DEXA Bone Density 02/15/2023 02/15/2021 SARS-COV-2 Immunization ( season) 2024 02/27/2024, 02/18/2023, 04/23/2022, Additional history exists DTaP/Tdap/Td Immunization Discontinued 10/26/2013 TdaP Immunization Completed 10/26/2013 Pneumococcal Immunization (50+ years) Completed 09/02/2023, 03/10/2020, 03/02/2019 Pneumococcal Immunization Combined Discontinued 09/02/2023, 03/10/2020, 03/02/2019 Respiratory Syncytial Virus (RSV) Immunization (Adult) Completed 09/02/2023 Influenza Immunization Completed , 02/18/2023, 02/27/2022, Additional history exists Hepatitis B Immunization Aged Out No longer eligible based on patient's age to complete this topic Human Papillomavirus (HPV) Immunization Aged Out No longer eligible based on patient's age to complete this topic Meningococcal Immunization (ACWY) Aged Out No longer eligible based on patient's age to complete this topic Rotavirus Immunization Aged Out No lo nger eligible based on patient's age to complete this topic Medical Devices Implanted Type Area Global Ceo Device Identifier Shelf Expiration Date Model / Serial / Lot Plate Bone Olecranon 4 Hole Right - [id number] Implanted:Qty: 1 on 09/01/2018 at [facility] IMPLANT Right: [employer] [id number] / [id number] / [id number] Screw Locking T10 Full Thread 3.5mm/10mm - [id number] Implanted:Qty: 1 on 09/01/2018 at [facility] IMPL[facility] Right: [employer] [id number] / [id number] / [id number] Screw Locking T10 Full Thread 3.5mm/14mm - [id number] Implanted:Qty: 1 on 09/01/2018 at [facility] IMPL[facility] Right: [employer] [id number] / [id number] / [id number] Screw Locking T10 Full Thread 3.5mm/16mm - [id number] Implanted:Qty: 1 on 09/01/2018 at [facility] IMPL[facility] Right: [employer] [id number] / [id number] / [id number] Screw Locking T10 Full Thread 3.5mm/18mm - [id number] Implanted:Qty: 1 on 09/01/2018 at [facility] IMPL[facility] Right: [employer] [id number] / [id number] / [id number] Screw Locking T10 Full Thread 3.5mm/20mm - [id number] Implanted:Qty: 1 on 09/01/2018 at [facility] IMPL[facility] Right: [employer] [id number] / [id number] / [id number] 3.5 X 20mm Non Locking Screw Implanted:Qty: 2 on 09/01/2018 at [facility] Right: [employer] [id number] / [id number] / [id number] 3.5 X 22mm Non Locking Screw Implanted:Qty: 1 on 09/01/2018 at [facility] Right: [employer] [id number] / [id number] / [id number] 3.5 X 50mm Nonlocking Screw Implanted:Qty: 1 on 09/01/2018 at [facility] Right: [employer] [id number] / [id number] / [id number] Procedures Procedure Name Priority Date/Time Associated Diagnosis Comments POCT GLUCOSE Routine 09/19/2024 11:19 AM CDT POCT GLUCOSE Routine 09/19/2024 7:10 AM CDT CBC WITH AUTO DIFFERENTIAL Routine 09/19/2024 4:41 AM CDT PHOSPHORUS (PO4) Routine 09/19/2024 4:41 AM CDT MAGNESIUM (MG) Routine 09/19/2024 4:41 AM CDT COMPLETE BLOOD COUNT (CBC) WITH DIFF Routine 09/19/2024 4:41 AM CDT BASIC METABOLIC PANEL W/ CALCIUM TOTAL Routine 09/19/2024 4:41 AM CDT POCT GLUCOSE Routine 09/18/2024 8:05 PM CDT POCT GLUCOSE Routine 09/18/2024 4:11 PM CDT POCT GLUCOSE Routine 09/18/2024 11:00 AM CDT POCT GLUCOSE Routine 09/18/2024 7:38 AM CDT CBC WITH AUTO DIFFERENTIAL Routine 09/18/2024 6:06 AM CDT BASIC METABOLIC PANEL W/ CALCIUM TOTAL Routine 09/18/2024 6:06 AM CDT COMPLETE BLOOD COUNT (CBC) WITH DIFF Routine 09/18/2024 6:06 AM CDT MAGNESIUM (MG) Routine 09/18/2024 6:06 AM CDT PHOSPHORUS (PO4) Routine 09/18/2024 6:06 AM CDT RHYTHM STRIP 09/18/2024 12:00 AM CDT RHYTHM STRIP 09/18/2024 12:00 AM CDT POCT GLUCOSE Routine 09/17/2024 8:57 PM CDT POCT GLUCOSE Routine 09/17/2024 4:39 PM CDT POCT GLUCOSE Routine 09/17/2024 12:25 PM CDT POCT GLUCOSE Routine 09/17/2024 7:58 AM CDT CBC WITH AUTO DIFFERENTIAL Routine 09/17/2024 6:36 AM CDT BASIC METABOLIC PANEL W/ CALCIUM TOTAL Routine 09/17/2024 6:36 AM CDT COMPLETE BLOOD COUNT (CBC) WITH DIFF Routine 09/17/2024 6:36 AM CDT MAGNESIUM (MG) Routine 09/17/2024 6:36 AM CDT PHOSPHORUS (PO4) Routine 09/17/2024 6:36 AM CDT RHYTHM STRIP 09/17/2024 12:00 AM CDT RHYTHM STRIP 09/17/2024 12:00 AM CDT RHYTHM STRIP 09/17/2024 12:00 AM CDT RHYTHM STRIP 09/17/2024 12:00 AM CDT EKG 12 LEAD STAT 09/16/2024 10:40 PM CDT POCT GLUCOSE Routine 09/16/2024 10:29 PM CDT POCT GLUCOSE Routine 09/16/2024 4:14 PM CDT EKG 12 LEAD Routine 09/16/2024 1:41 PM CDT POCT GLUCOSE Routine 09/16/2024 11:36 AM CDT CBC WITH AUTO DIFFERENTIAL Routine 09/16/2024 4:49 AM CDT COMPLETE BLOOD COUNT (CBC) WITH DIFF Routine 09/16/2024 4:49 AM CDT PHOSPHORUS (PO4) Routine 09/16/2024 4:49 AM CDT MAGNESIUM (MG) Routine 09/16/2024 4:49 AM CDT BASIC METABOLIC PANEL W/ CALCIUM TOTAL Routine 09/16/2024 4:49 AM CDT EKG SCAN 09/16/2024 12:00 AM CDT POCT GLUCOSE Routine 09/15/2024 7:45 PM CDT POCT GLUCOSE Routine 09/15/2024 4:10 PM CDT POCT GLUCOSE Routine 09/15/2024 11:52 AM CDT POCT GLUCOSE Routine 09/15/2024 9:22 AM CDT CBC WITH AUTO DIFFERENTIAL Routine 09/15/2024 3:20 AM CDT COMPLETE BLOOD COUNT (CBC) WITH DIFF Routine 09/15/2024 3:20 AM CDT PHOSPHORUS (PO4) Routine 09/15/2024 3:20 AM CDT MAGNESIUM (MG) Routine 09/15/2024 3:20 AM CDT BASIC METABOLIC PANEL W/ CALCIUM TOTAL Routine 09/15/2024 3:20 AM CDT POCT GLUCOSE Routine 09/14/2024 7:47 PM CDT POCT GLUCOSE Routine 09/14/2024 3:59 PM CDT POCT GLUCOSE Routine 09/14/2024 11:33 AM CDT POCT GLUCOSE Routine 09/14/2024 7:09 AM CDT CBC WITH AUTO DIFFERENTIAL Routine 09/14/2024 4:31 AM CDT FERRITIN Routine 09/14/2024 4:31 AM CDT PHOSPHORUS (PO4) Routine 09/14/2024 4:31 AM CDT MAGNESIUM (MG) Routine 09/14/2024 4:31 AM CDT PHOSPHORUS (PO4) Routine 09/14/2024 4:31 AM CDT MAGNESIUM (MG) Routine 09/14/2024 4:31 AM CDT BASIC METABOLIC PANEL W/ CALCIUM TOTAL Routine 09/14/2024 4:31 AM CDT COMPLETE BLOOD COUNT (CBC) WITH DIFF Routine 09/14/2024 4:31 AM CDT POCT GLUCOSE Routine 09/13/2024 9:25 PM CDT POCT GLUCOSE Routine 09/13/2024 4:44 PM CDT XR FOREARM LEFT Stat with Interpretation 09/13/2024 3:48 PM CDT POCT GLUCOSE Routine 09/13/2024 11:58 AM CDT POCT GLUCOSE Routine 09/13/2024 7:16 AM CDT PHOSPHORUS (PO4) Routine 09/13/2024 5:21 AM CDT MAGNESIUM (MG) Routine 09/13/2024 5:21 AM CDT BASIC METABOLIC PANEL W/ CALCIUM TOTAL Routine 09/13/2024 5:21 AM CDT CBC WITH AUTO DIFFERENTIAL Routine 09/13/2024 5:19 AM CDT COMPLETE BLOOD COUNT (CBC) WITH DIFF Routine 09/13/2024 5:19 AM CDT POCT GLUCOSE Routine 09/13/2024 1:32 AM CDT AEROSOL NEBULIZER-INITIAL Routine 09/13/2024 12:[address] ANGIO CHEST W/WO CONTRAST WITH PP (POST PROCESSING) Stat with Interpretation 09/12/2024 10:47 AM CDT CREATINE KINASE (CK) TOTAL STAT 09/12/2024 8:50 AM CDT C-REACTIVE PROTEIN (CRP) QUANT STAT 09/12/2024 8:50 AM CDT TROPONIN I, HIGH SENSITIVITY (HSTRP) STAT 09/12/2024 8:50 AM CDT BLOOD GASES, ARTERIAL W/ O2 SATURATION STAT 09/12/2024 8:36 AM CDT XR CHEST SINGLE VIEW PORTABLE STAT 09/12/2024 7:49 AM CDT CBC WITH AUTO DIFFERENTIAL STAT 09/12/2024 7:33 AM CDT HEMOGLOBIN A1C W/ ESTIMATED GLUCOSE STAT 09/12/2024 7:33 AM CDT D-DIMER STAT 09/12/2024 7:33 AM CDT MAGNESIUM (MG) STAT 09/12/2024 7:33 AM CDT B-TYPE NATRIURETIC PEPTIDE (BNP) STAT 09/12/2024 7:33 AM CDT TROPONIN I, HIGH SENSITIVITY (HSTRP) STAT 09/12/2024 7:33 AM CDT CMP (COMPREHENSIVE METABOLIC PANEL) STAT 09/12/2024 7:33 AM CDT COMPLETE BLOOD COUNT (CBC) WITH DIFF STAT 09/12/2024 7:33 AM CDT RSV,SARS-COV-2,INF LUENZA A&B BY PCR STAT 09/12/2024 7:33 AM CDT CRITICAL CARE Routine 09/12/2024 7:31 AM CDT EKG 12 LEAD STAT 09/12/2024 7:11 AM CDT RHYTHM STRIP 09/12/2024 12:00 AM CDT EKG SCAN 09/12/2024 12:00 AM CDT from Last 3 Months Results * (ABNORMAL) POCT Glucose (09/19/2024 11:19 AM CDT) Only the most recent of26 resultswithin the time period is included. GLUCOSE,BEDSID E POCT 139(H) 70 - 99 mg/dL 09/19/2024 11:26 AM CDT [facility] Blood 09/19/2024 11:1 9 AM CDT 09/19/2024 11:26 AM CDT us None Provider POINT OF CARE TESTING Final Resu lt [facility] [place] [address] * (ABNORMAL) CBC with Auto Differential (09/19/2024 4:41 AM CDT) Only the most recent of8 resultswithin the time period is included. WBC 10.34 4.00 - 12.00 10(3)/mcL 09/19/2024 5:35 AM CDT [facility] RBC 4.26 3.80 - 5.30 10(6)/[facility] 09/19/2024 5:35 AM CDT [facility] HEMOGLOBIN (HGB) 12.7 12.0 - 15.8 g/dL 09/19/2024 5:35 AM CDT [facility] HEMATOCRIT (HCT) 39.5 36.0 - 47.0 % 09/19/2024 5:35 AM CDT [facility] MCV 92.7 82.0 - 96.0 fL 09/19/2024 5:35 AM CDT [facility] MCH 29.8 26.0 - 34.0 pg 09/19/2024 5:35 AM CDT [facility] MCHC 32.2 31.0 - 36.0 g/dL 09/19/2024 5:35 AM CDT [facility] PLATELET COUNT 253 140 - 440 10(3)/[facility] 09/19/2024 5:35 AM CDT [facility] RDW 13.2 11.8 - 15.5 % 09/19/2024 5:35 AM CDT [facility] MPV 10.2 9.7 - 12.4 fL 09/19/2024 5:35 AM CDT [facility] NEUTROPHILS 73.6(H) 47.0 - 73.0 % 09/19/2024 5:35 AM CDT [facility] LYMPHOCYTES 16.2(L) 18.0 - 42.0 % 09/19/2024 5:35 AM CDT [facility] MONOCYTES 8.1 4.0 - 12.0 % 09/19/2024 5:35 AM CDT [facility] EOSINOPHILS 1.8 0.0 - 5.0 % 09/19/2024 5:35 AM CDT [facility] BASOPHILS 0.3 0.0 - 1.0 % 09/19/2024 5:35 AM CDT [facility] ABSOLUTE NEUTROPHILS 7.61 1.60 - 7.70 10(3)/mcL 09/19/2024 5:35 AM CDT [facility] ABSOLUTE LYMPHOCYTES 1.67 1.30 - 3.20 10(3)/[facility] 09/19/2024 5:35 AM CDT [facility] ABSOLUTE MONOCYTES 0.84 0.20 - 1.00 10(3)/[facility] 09/19/2024 5:35 AM CDT [facility] ABSOLUTE EOSINOPHIL 0.19 0.00 - 0.40 10(3)/[facility] 09/19/2024 5:35 AM CDT [facility] ABSOLUTE BASOPHILS 0.03 0.00 - 0.10 10(3)/[facility] 09/19/2024 5:35 AM CDT [facility] NRBC PER 100 WBC 0 09/20/19 5:35 AM CDT [facility] Blood BLOOD SPECIMEN / Unknown Venipuncture / Unknown 09/19/2024 4:41 AM CDT 09/19/2024 5:25 AM CDT us Karissa Bowen OILING MACHINE OPERATOR, PRIVATE HOUSEHOLD WORKER HEMATOLOGY ORDERABLES Fin al Result [facility] [place] [address] * PHOSPHORUS (PO4) (09/19/2024 4:41 AM CDT) Only the most recent of8 resultswithin the time period is included. PHOSPHORUS 4.4 2.5 - 4.5 mg/dL 09/19/2024 5:57 AM CDT [facility] Blood BLOOD SPECIMEN / Unknown Venipuncture / Unknown 09/19/2024 4:41 AM CDT 09/19/2024 5:26 AM CDT Karissa Jessi KELLEY, PRIVATE HOUSEHOLD WORKER CHEMISTRY ORDERABLES Alena l Result Performing Organization Address City/[facility]/ZIP Co de Phone Number [facility] [address] [place] [address] * MAGNESIUM (MG) (09/19/2024 4:41 AM CDT) Only the most recent of9 resultswithin the time period is included. MAGNESIUM 2.0 1.6 - 2.6 mg/dL 09/19/2024 5:57 AM CDT [facility] Blood BLOOD SPECIMEN / Unknown Venipuncture / Unknown 09/19/2024 4:41 AM CDT 09/19/2024 5:26 AM CDT Karissa Bowen APRN, PRIVATE HOUSEHOLD WORKER CHEMISTRY ORDERABLES Alena l Result Performing Organization Address [facility] de Phone Number [facility] [address] [place] [address] * (ABNORMAL) BMP AM (09/19/2024 4:41 AM CDT) Only the most recent of7 resultswithin the time period is included. SODIUM 135(L) 136 - 145 mmol/L 09/19/2024 5:57 AM CDT [facility] POTASSIUM 4.5 3.5 - 5.1 mmol/L 09/19/2024 5:57 AM CDT [facility] CHLORIDE 98 98 - 107 mmol/L 09/19/2024 5:57 AM CDT [facility] CO2, VENOUS 27 22 - 30 mmol/L 09/19/2024 5:57 AM CDT [facility] ANION GAP 14.5 <18.0 mmol/L 09/19/2024 5:57 AM CDT [facility] GLUCOSE 114(H) 70 - 99 mg/dL 09/19/2024 5:57 AM CDT [facility] BUN 44(H) 10 - 20 mg/dL 09/19/2024 5:57 AM CDT [facility] CREATININE, BLOOD 1.94(H) 0.60 - 1.00 mg/dL 09/19/2024 5:57 AM CDT [facility] BUN/CREATININE RATIO 23(H) 12 - 20 ratio 09/19/2024 5:57 AM CDT [facility] CALCIUM 8.4(L) 8.7 - 10.5 mg/dL 09/19/2024 5:57 AM CDT [facility] GFR, ESTIMATED 24(L) >=60 09/19/2024 5:57 AM CDT [facility] Comment: Creatinine Clearance is the preferred criteria for selecting drug dose adjustments in renally impaired patients. The GFR is provided as additional pertinent clinical information. GFR is reported in mL/min/1.73 sq m. Calculation based on the Chronic Kidney Disease Epidemiology Collaboration (CKD- EPI) equation refit without adjustment for race. GFR, EST. 30(L) >=60 025 5:57 AM CDT [facility] GFR, EST. NONAFRICAN 24(L) >=60 09/19/2024 5:57 AM CDT [facility] Blood BLOOD SPECIMEN / Unknown Venipuncture / Unknown 09/19/2024 4:41 AM CDT 09/19/2024 5:26 AM CDT us Karissa Bowen APRN, [employer]IVATE [employer]SEH[employer] WORKER CHEMISTRY ORDERABLES Alena l Result [facility] [address] [place] [address] * RHYTHM STRIP (09/18/2024 12:00 AM CDT) Only the most recent of7 resultswithin the time period is included. 09/18/2024 us Provider Scan IMG ECG ORDERABLES Final Result Performing Organization Address City/[facility] Co de Phone Number RESULTING AGENCY * EKG 12 LEAD (09/16/2024 10:40 PM CDT) Only the most recent of3 resultswithin the time period is included. Ventricular Rate 41 BPM EXTERNAL EKG Atrial Rate 41 BPM EXTERNAL EKG P-R Interval 148 ms EXTERNAL EKG QRS Duration 74 ms EXTERNAL EKG Q-T Duration 452 ms EXTERNAL EKG QTC CALCULATION 372 ms EXTERNAL EKG P [place] -10 degrees EXTERNAL EKG R [place] 7 degrees EXTERNAL EKG T [place] 53 degrees EXTERNAL EKG 09/16/2024 10:4 0 PM CDT Impressions EXTERNAL EKG - 09/21/2024 10:21 AM CDT Marked sinus bradycardia Low voltage QRS Abnormal ECG When compared with ECG of 16-SEP-2024 13:41, (Unconfirmed) PAC is no longer present Confirmed by Maddison Blankenship ([id number]) on 09/21/2024 10:21:27 AM Narrative Procedure Note Maddison Blankenship DO - 09/21/2024 IMPRESSION: Marked sinus bradycardia Low voltage QRS Abnormal ECG When compared with ECG of 16-SEP-2024 13:41, (Unconfirmed) PAC is no longer present Confirmed by Maddison Blankenship ([id number]) on 09/21/2024 10:21:27 AM us Marina Fisher Wyatt [employer], [employer] IMG ECG ORDERABLES Fi nal Result Performing Organization Address City/[facility]/ZIP Co de Phone Number EXTERNAL EKG * EKG SCAN (09/16/2024 12:00 AM CDT) Only the most recent of2 resultswithin the time period is included. 09/16/2024 us Provider Scan IMG ECG ORDERABLES Final Result RESULTING AGENCY * Ferritin (09/14/2024 4:31 AM CDT) FERRITIN 127 5 - 204 ng/mL 09/14/2024 5:14 PM CDT [facility] Blood Venipuncture / Unknown 09/14/2024 4:31 AM CDT 09/14/2024 4:52 AM CDT Nickie Hayward MD CHEMISTRY ORDERABLES Final Res ult Performing Organization Address City/[facility] Co de Phone Number [facility] [place] [address] * XR FOREARM LEFT (09/13/2024 3:48 PM CDT) Anatomical Region Laterality Modality UPPER EXTREMITY, forearm Left Digital Radiography 09/13/2024 4:06 PM CDT Impressions 09/13/2024 4:09 PM CDT IMPRESSION: Grossly stable comminuted fracture of the olecranon with 1.8 cm of distraction. Elbow joint effusion is grossly similar. Narrative 09/13/2024 4:09 PM CDT EXAM DESCRIPTION: XR FOREARM LEFT REASON FOR STUDY: Left elbow pain worse with movement. TECHNIQUE: AP and lateral views of the left forearm COMPARISON: Left elbow radiographs 08/21/2024 FINDINGS: BONES/JOINTS: Grossly stable comminuted fracture of the olecranon with 1.8 cm of distraction. No dislocation is seen. SOFT TISSUES: Elbow joint effusion is grossly similar. Rounded calcific densities subcutaneous densities posterior to the radius are grossly unchanged. THIS IS AN ELECTRONICALLY VERIFIED FINAL REPORT 09/13/2024 4:06 PM - Electronically signed by Fuentes Coates M.D. LB: JAQUELINE Report ID: [id number] Reading Location: [id number] Procedure Note Fuentes Coates MD - 09/13/2024 EXAM DESCRIPTION: XR FOREARM LEFT REASON FOR STUDY: Left elbow pain worse with movement. TECHNIQUE: AP and lateral views of the left forearm COMPARISON: Left elbow radiographs 08/21/2024 FINDINGS: BONES/JOINTS: Grossly stable comminuted fracture of the olecranon with 1.8 cm of distraction. No dislocation is seen. SOFT TISSUES: Elbow joint effusion is grossly similar. Rounded calcific densities subcutaneous densities posterior to the radius are grossly unchanged. THIS IS AN ELECTRONICALLY VERIFIED FINAL REPORT 09/13/2024 4:06 PM - Electronically signed by Fuentes Coates M.D. LB: LB Report ID: [id number] Reading Location: [id number] IMPRESSION: Grossly stable comminuted fracture of the olecranon with 1.8 cm of distraction. Elbow joint effusion is grossly similar. Shirin Holt MD IM DIAGNOSTIC ORDERABLES Fin al Result * CT ANGIO CHEST W/WO CONTRAST WITH PP (POST PROCESSING) (09/12/2024 10:47 AM CDT) Anatomical Region Laterality Modality vascular N/A Computed Tomogra phy 09/12/2024 11:5 7 AM CDT Impressions 09/12/2024 11:59 AM CDT IMPRESSION: 1. No CT evidence of pulmonary embolism. 2. Right lower lobe noncalcified solid pulmonary nodule measuring 3 mm. According to updated Fleischner Society guidelines, if the patient is at high risk for development lung cancer, follow-up chest CT in 12 months could be considered. Reference: Radiographics. 2018 Jan-Feb;38(5):5147-7453 Narrative 09/12/2024 11:59 AM CDT EXAM DESCRIPTION: CT ANGIO CHEST W/WO CONTRAST WITH PP (POST PROCESSING) REASON FOR STUDY: Positive D-dimer TECHNIQUE: CT angiogram of the chest performed with intravenous contrast using helical scanning technique with dynamic intravenous contrast injection. Reconstructed coronal and sagittal MPR images reviewed. All images stored on PACS. 3D MIP images rendered on scanning unit and reviewed at time of interpretation. Automated exposure control was used as a dose optimization technique for this examination. CONTRAST TYPE/DOSE: 75mL of IOPAMIDOL 76 % IV SOLN injected COMPARISON: Radiographs 09/12/2024 and 08/31/2018 FINDINGS: VASCULATURE: No CT evidence of pulmonary embolism. Mild enlargement of the right and left main pulmonary arteries which can be seen in pulmonary hypertension. No aortic aneurysm or aortic dissection. Atherosclerotic calcification of the thoracic aorta and its branches including the coronary arteries. LUNGS: Mild upper lobe predominant bilateral pulmonary emphysema. Scattered regions of mild bilateral pulmonary parenchymal scarring. There is a 3 mm noncalcified right lower lobe pulmonary nodule at slice position 78. Bilateral bronchial wall thickening. Left lower lobe calcified granulomas. PLEURA: No pleural effusion. No pneumothorax. MEDIASTINUM/ABDULLAHI: No identified masses or lymphadenopathy. No supraclavicular lymphadenopathy the esophagus is within normal limits. HEART: Heart size is normal with no pericardial effusion. AXILLA: No adenopathy. CHEST WALL: No masses. No subcutaneous air. HARDWARE/LINES/TUBES: None. UPPER ABDOMEN: Calcified hepatic and splenic granulomas. Hypoattenuating bilateral renal lesions may reflect cysts measuring 11 mm in the right kidney and measuring up to 15 mm in the imaged portions in the right kidney. Colonic diverticulosis. Tiny hiatal hernia. MUSCULOSKELETAL: No acute fractures or aggressive osseous lesions. THIS IS AN ELECTRONICALLY VERIFIED FINAL REPORT 09/12/2024 11:57 AM - Electronically signed by Brody James M.D. AT: AT Report ID: [id number] Reading Location: [place] [address] Procedure Note Brody James MD - 09/12/2024 EXAM DESCRIPTION: CT ANGIO CHEST W/WO CONTRAST WITH PP (POST PROCESSING) REASON FOR STUDY: Positive D-dimer TECHNIQUE: CT angiogram of the chest performed with intravenous contrast using helical scanning technique with dynamic intravenous contrast injection. Reconstructed coronal and sagittal MPR images reviewed. All images stored on PACS. 3D MIP images rendered on scanning unit and reviewed at time of interpretation. Automated exposure control was used as a dose optimization technique for this examination. CONTRAST TYPE/DOSE: 75mL of IOPAMIDOL 76 % IV SOLN injected COMPARISON: Radiographs 09/12/2024 and 08/31/2018 FINDINGS: VASCULATURE: No CT evidence of pulmonary embolism. Mild enlargement of the right and left main pulmonary arteries which can be seen in pulmonary hypertension. No aortic aneurysm or aortic dissection. Atherosclerotic calcification of the thoracic aorta and its branches including the coronary arteries. LUNGS: Mild upper lobe predominant bilateral pulmonary emphysema. Scattered regions of mild bilateral pulmonary parenchymal scarring. There is a 3 mm noncalcified right lower lobe pulmonary nodule at slice position 78. Bilateral bronchial wall thickening. Left lower lobe calcified granulomas. PLEURA: No pleural effusion. No pneumothorax. MEDIASTINUM/ABDULLAHI: No identified masses or lymphadenopathy. No supraclavicular lymphadenopathy the esophagus is within normal limits. HEART: Heart size is normal with no pericardial effusion. AXILLA: No adenopathy. CHEST WALL: No masses. No subcutaneous air. HARDWARE/LINES/TUBES: None. UPPER ABDOMEN: Calcified hepatic and splenic granulomas. Hypoattenuating bilateral renal lesions may reflect cysts measuring 11 mm in the right kidney and measuring up to 15 mm in the imaged portions in the right kidney. Colonic diverticulosis. Tiny hiatal hernia. MUSCULOSKELETAL: No acute fractures or aggressive osseous lesions. THIS IS AN ELECTRONICALLY VERIFIED FINAL REPORT 09/12/2024 11:57 AM - Electronically signed by Brody James M.D. AT: AT Report ID: [id number] Reading Location: [place] [address] IMPRESSION: 1. No CT evidence of pulmonary embolism. 2. Right lower lobe noncalcified solid pulmonary nodule measuring 3 mm. According to updated Fleischner Society guidelines, if the patient is at high risk for development lung cancer, follow-up chest CT in 12 months could be considered. Reference: Radiographics. 2018 Jan-Feb;38(5):4747-6445 Opal Anthony MD [employer] [employer] CT ORDERABLES Final Resul t * (ABNORMAL) TROPONIN I, HIGH SENSITIVITY (HSTRP) (09/12/2024 8:50 AM CDT) Only the most recent of2 resultswithin the time period is included. TROPONIN I, HIGH SENSITIVITY- AN 15(H) <=14 ng/L 09/12/2024 9:23 AM CDT [facility] Comment: High-sensitivity troponin I results are reported in ng/L making the result appear to be 1,000 times higher than the contemporary troponin I value which is reported in ng/ml. Results from An. Blood Venipuncture / Unknown 09/12/2024 8:50 AM CDT 09/12/2024 8:58 AM CDT Opal Anthony MD CHEMISTRY ORDERABLES Final Re sult Performing Organization Address [facility] Co de Phone Number [facility] [address] [place] [address] * Creatine Kinase (CK) Total (09/12/2024 8:50 AM CDT) CK (CPK) 43 29 - 168 U/L 09/12/2024 1:53 PM CDT [facility] Blood Venipuncture / Unknown 09/12/2024 8:50 AM CDT 09/12/2024 8:58 AM CDT Shirin Holt MD HEMATOLOGY ORDERABLES Final R esult Performing Organization Address [facility] de Phone Number [facility] [address] [place] [address] * (ABNORMAL) C-Reactive Protein (CRP) Quant (09/12/2024 8:50 AM CDT) C-REACTIVE PROTEIN 0.65(H) <0.50 mg/dL 09/12/2024 1:53 PM CDT [facility] Blood Venipuncture / Unknown 09/12/2024 8:50 AM CDT 09/12/2024 8:58 AM CDT Shirin Holt MD CHEMISTRY ORDERABLES Final Re sult Performing Organization Address City/[facility]/ZIP Co de Phone Number [facility] [address] [place] [address] * (ABNORMAL) Blood Gases, Arterial w/ O2 Saturation [id number] (09/12/2024 8:36 AM CDT) O2 STATUS 1l 92% (2 out of nose) 09/12/2024 8:49 AM CDT [facility] PH ARTERIAL 7.46(H) 7.35 - 7.45 09/12/2024 8:49 AM CDT [facility] PC02 (ARTERIAL) 67(H) 35 - 45 mmHg 09/12/2024 8:49 AM CDT [facility] PO2 (ARTERIAL) 66(L) 75 - 100 mmHg 09/12/2024 8:49 AM CDT [facility] O2 SAT ART, MEASURED 90(L) 94 - 100 % 09/12/2024 8:49 AM CDT [facility] BASE ARTERIAL 21.3(H) -2.0 - 2.0 mmol/L 09/12/2024 8:49 AM CDT [facility] BICARBONATE 48.5(H) 22.0 - 26.0 mmol/L 09/12/2024 8:49 AM CDT [facility] RUT'S TEST RESULTS Positive - Right Radial 09/12/2024 8:49 AM CDT [facility] CARBOXYHEMOGLOBIN 2.0 0.0 - 5.0 % 09/12/2024 8:49 AM CDT [facility] METHEMOGLOBIN 0.3 0.0 - 1.5 % 09/12/2024 8:49 AM CDT [facility] ART Blood Gas Arterial Punctur e / Unknown 09/12/2024 8:36 AM CDT 09/12/2024 8:36 AM CDT us Opal Anthony MD CHEMISTRY ORDERABLES Final Re sult [facility] [address] [place] [address] * XR CHEST SINGLE VIEW PORTABLE (09/12/2024 7:49 AM CDT) Anatomical Region Laterality Modality Chest N/A Digital Radiogra phy 09/12/2024 8:16 AM CDT Impressions 09/12/2024 8:19 AM CDT IMPRESSION: No acute cardiopulmonary abnormality. Narrative 09/12/2024 8:19 AM CDT EXAM DESCRIPTION: XR CHEST SINGLE VIEW PORTABLE REASON FOR STUDY: Patient is from a shelter , she is here with increased shortness of breath today. Hx. HTN, DM TECHNIQUE: Frontal radiographic view(s) of the chest. COMPARISON: Chest radiograph dated 08/31/2018. FINDINGS: LUNGS: No focal opacity, pleural effusion, or pneumothorax. HEART/MEDIASTINUM: Cardiac silhouette normal in size. Thoracic atherosclerosis. Mediastinal and hilar contours appear normal. LINES/TUBES: None. BONES: No acute osseous abnormality. THIS IS AN ELECTRONICALLY VERIFIED FINAL REPORT 09/12/2024 8:16 AM - Electronically signed by Gagandeep PITTMAN: TOYA Report ID: [id number] Reading Location: [id number] Procedure Note Gagandeep Carroll, DO - 09/12/2024 EXAM DESCRIPTION: XR CHEST SINGLE VIEW PORTABLE REASON FOR STUDY: Patient is from a shelter , she is here with increased shortness of breath today. Hx. HTN, DM TECHNIQUE: Frontal radiographic view(s) of the chest. COMPARISON: Chest radiograph dated 08/31/2018. FINDINGS: LUNGS: No focal opacity, pleural effusion, or pneumothorax. HEART/MEDIASTINUM: Cardiac silhouette normal in size. Thoracic atherosclerosis. Mediastinal and hilar contours appear normal. LINES/TUBES: None. BONES: No acute osseous abnormality. THIS IS AN ELECTRONICALLY VERIFIED FINAL REPORT 09/12/2024 8:16 AM - Electronically signed by Gagandeep Carroll M.D. MF: TOYA Report ID: [id number] Reading Location: [place] [address] IMPRESSION: No acute cardiopulmonary abnormality. Opal Anthony MD IMG DIAGNOSTIC ORDERABLES Fin al Result * (ABNORMAL) Hemoglobin A1C w/ Estimated Glucose (09/12/2024 7:33 AM CDT) HGB-A1C 6.9(H) 4.0 - 6.0 % 09/12/2024 5:04 PM CDT [facility] Est Average Glucose 151.3 mg/dL 09/12/2024 5:04 PM CDT [facility] Blood Venipuncture / Unknown 09/12/2024 7:33 AM CDT 09/12/2024 7:33 AM CDT Narrative [facility] - 09/12/2024 5:04 PM CDT HEMOGLOBIN A1C: DIABETIC PATIENTS: WELL-CONTROLLED: 6.2 - 7.0 INTERMEDIATE WELL-CONTROLLED: 7.0 - 9.0 POORLY-CONTROLLED: >9.0 Specimens containing greater than 5% of Hemoglobin F may result in lower than expected % HbA1C results. Shirin Holt MD CHEMISTRY ORDERABLES Final Re sult [facility] [address] [place] [address] * rsv,flu,covid (09/12/2024 7:33 AM CDT) FLU A Negative Negative, Error 09/12/2024 8:21 AM CDT [facility] FLU B Negative Negative 09/12/2024 8:21 AM CDT [facility] RESP SYNC VIRUS Negative Negative 8:21 AM CDT [facility] SARSCOV2 NOT DETECTED (Reference Range for this test is Not Detected) 09/12/2024 8:21 AM CDT [facility] Comment:This test was perfor med by a Reverse Assistant To The Vice President PCR Method. Swab NASOPHARYNGEAL STRUCTURE / Unknown Non-Phlebotomy Collection / Unknown 09/12/2024 7:33 AM CDT 09/12/2024 7:33 AM CDT Opal Anthony MD MICROBIOLOGY - GENERAL ORDERA BLES Final Result Performing Organization Address [facility] Co de Phone Number [facility] [address] [place] [address] * (ABNORMAL) D-DIMER [id number] (09/12/2024 7:33 AM CDT) D DIMER 3.33(H) <0.50 mcg/mL FEU 09/12/2024 8:14 AM CDT [facility] Blood Venipuncture / Unknown 09/12/2024 7:33 AM CDT 09/12/2024 7:34 AM CDT Narrative [facility] - 09/12/2024 8:14 AM CDT The FDA has approved this method to exclude the diagnosis of DVT and/or PE at the cutoff value of <0.50 mcg/mL FEU. Opal Anthony MD HEMATOLOGY ORDERABLES Final R esult Performing Organization Address City/[facility] Co de Phone Number [facility] [address] [place] [address] * (ABNORMAL) CMP (Comprehensive Metabolic Panel) (09/12/2024 7:33 AM CDT) SODIUM 143 136 - 145 mmol/L 09/12/2024 8:02 AM CDT [facility] POTASSIUM 3.5 3.5 - 5.1 mmol/L 09/12/2024 8:02 AM CDT [facility] CHLORIDE 95(L) 98 - 107 mmol/L 09/12/2024 8:02 AM CDT [facility] CO2, VENOUS 36(H) 22 - 30 mmol/L 09/12/2024 8:02 AM [facility] ANION GAP 15.5 <18.0 mmol/L 09/12/2024 8:02 AM [facility] GLUCOSE 144(H) 70 - 99 mg/dL 09/12/2024 8:02 AM [facility] BUN 25(H) 10 - 20 mg/dL 09/12/2024 8:02 AM [facility] CREATININE, BLOOD 1.45(H) 0.60 - 1.00 mg/dL 09/12/2024 8:02 AM [facility] BUN/CREATININE RATIO 17 12 - 20 ratio 09/12/2024 8:02 AM [facility] TOTAL PROTEIN 6.7 6.0 - 8.0 g/dL 09/12/2024 8:02 AM [facility] ALBUMIN 3.4(L) 3.5 - 5.0 g/dL 09/12/2024 8:02 AM [facility] A/G RATIO 1.0 1.0 - 2.2 09/12/2024 8:02 AM [facility] CALCIUM 8.6(L) 8.7 - 10.5 mg/dL 09/12/2024 8:02 AM [facility] T BILI 0.9 0.2 - 1.2 mg/dL 09/12/2024 8:02 AM [facility] SGOT (AST) 20 <43 U/L 09/12/2024 8:02 AM [facility] SGPT (ALT) 7 <56 U/L 09/12/2024 8:02 AM [facility] ALKALINE PHOSPHATASE 74 40 - 150 U/L 09/12/2024 8:02 AM [facility] GFR, ESTIMATED 35(L) >=60 09/12/2024 8:02 AM [facility] Comment: Creatinine Clearance is the preferred criteria for selecting drug dose adjustments in renally impaired patients. The GFR is provided as additional pertinent clinical information. GFR is reported in mL/min/1.73 sq m. Calculation based on the Chronic Kidney Disease Epidemiology Collaboration (CKD- EPI) equation refit without adjustment for race. GFR, EST. 41(L) >=60 025 8:02 AM CDT [facility] GFR, EST. NONAFRICAN 34(L) >=60 09/12/2024 8:02 AM CDT [facility] Blood Venipuncture / Unknown 09/12/2024 7:33 AM CDT 09/12/2024 7:34 AM CDT us Opal Anthony MD CHEMISTRY ORDERABLES Final Re sult Performing Organization Address [facility] Co de Phone Number [facility] [address] [place] [address] * (ABNORMAL) B-Type Natriuretic Peptide (BNP) (09/12/2024 7:33 AM CDT) B TYPE NATRIURETIC PEPTIDE 108(H) <100 pg/mL 09/12/2024 8:14 AM CDT [facility] Blood Venipuncture / Unknown 09/12/2024 7:33 AM CDT 09/12/2024 7:33 AM CDT us Opal Anthony MD CHEMISTRY ORDERABLES Final Re sult Performing Organization Address [facility] Co de Phone Number [facility] [address] [place] [address] * Critical Care (09/12/2024 7:31 AM CDT) Narrative Opal Anthony MD - 09/12/2024 7:31 AM CDT Opal Anthony MD 09/12/2024 1:35 PM Critical Care Performed by: Opal Anthony MD Authorized by: Opal Anthony MD Critical care provider statement: Critical care time (minutes): 35 Critical care time was exclusive of: Separately billable procedures and treating other patients Critical care was necessary to treat or prevent imminent or life-threatening deterioration of the following conditions: Respiratory failure Critical care was time spent personally by me on the following activities: Development of treatment plan with patient or surrogate, evaluation of patient's response to treatment, examination of patient, ordering and performing treatments and interventions, ordering and review of laboratory studies, ordering and review of radiographic studies, pulse oximetry and re-evaluation of patient's condition Care discussed with: admitting provider Comments: Supplemental O2 for hypoxia Opal Anthony MD PROCEDURE/MINOR SURGICAL SILVIA BERNARDO Final Result from Last 3 Months Insurance [employer] GENERIC MEDICARE C [facility] Advance Directives * Full Code (Latest Code Status on File) Date Activated Date Inactivated Comments 09/12/2024 4:32 PM CPR-Full Treat ment: FULL ARREST: Attempt Resuscitation/CPR wit intubation and mechanical ventilation. PRE-ARREST: Use entire range of life support measures to stabilize the patient. * Full Code Date Activated Date Inactivated Comments 09/16/2018 8:39 AM 09/12/2024 4:32 PM Care Teams Nitrate Operator Relationship Specialty Start Date End Date Quincy Butt MD [address] [place] [address] [place] [place] [id number] PCP - General Internal Medicine 07/24/17
--- OUTSIDE RECORDS SUMMARY | 2024-09-24 10:43 | XMS_ITS | Encounter Summary ---
Author Organization [facility] Address [address] [place] [address] Phone Care Team Providers Care Mobile Homes Repairer Name Role Phone Quincy Butt MD Primary Care Provider [phone] Pierre Fuentes Primary Care Provider [phone] Encounter Details Date Type Department Care Team (Late st Contact Info) Description 02/14/2017 Orders Only [facility] [address] [address] Rama Beard MA Social History Tobacco Use Types Packs/Day Years Used Date Smoking Tobacco: Former Cigarettes Q uit: 05/05/1995 Comments:Smoking History Pac ks/day: 1 Packs Alcohol Use Standard Drinks/Week Comments No 0 (1 standard drink = 0.6 oz pur e alcohol) Comments Unknown Sex and Gender Information Value Date Recorded Sex Assigned at Not on file 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 Gender Identity Not on file Sexual Orientation Not on file documented as of this encounter Plan of Treatment Not on file documented as of this encounter Visit Diagnoses Not on filedocumented in this encounter Additional Health Concerns Infection Onset Date Last Indicated Resolved Time COVID: Suspected 08/21/2024 08/21/2024 08/21/2024 7:57 PM CDT documented as of this encounter Care Teams Mobile Homes Repairer Relationship Specialty Start Date End Date Quincy Butt MD PCP - General 08/02/16 09/30/23 Pierre Fuentes PA [address] [place] [address] PCP - General Family Practice 10/01/23 documented as of this encounter
--- OUTSIDE RECORDS SUMMARY | 2024-09-24 10:43 | XMS_ITS | Encounter Summary ---
Author Organization [facility] Healthcare Address [address] [place] [address] Care Team Providers Care Head Resident Name Role Phone Quincy Butt MD Primary Care Provider [phone] Pierre Fuentes Primary Care Provider [phone] Reason for Visit * Reason Onset Date Comments Scheduling Appointments 02/14/2021 confirme d dexa Encounter Details Date Type Department Care Team (Late st Contact Info) Description 02/14/2021 Telephone [facility] [address] [place] [phone] Marianela Ferguson RT Scheduling Appointments (confirmed dexa) Social History Tobacco Use Types Packs/Day Years Used Date Smoking Tobacco: Former Smokeless Tobacco: Never Comments:Smoking History Pac ks/day: 1 Packs Alcohol Use Standard Drinks/Week Comments No 0 (1 standard drink = 0.6 oz pur e alcohol) PHQ-2 Answer Date Recorded PHQ-2 Score 0 03/02/2019 Comments No Sex and Gender Information Value Date Recorded Sex Assigned at Not on file 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 Gender Identity Not on file Sexual Orientation Not on file documented as of this encounter Plan of Treatment Not on file documented as of this encounter Visit Diagnoses Not on filedocumented in this encounter Additional Health Concerns Infection Onset Date Last Indicated Resolved Time COVID: Suspected 08/21/2024 08/21/2024 08/21/2024 7:57 PM CDT documented as of this encounter Care Teams Head Resident Relationship Specialty Start Date End Date Quincy Butt MD PCP - General 08/02/16 09/30/23 Pierre Fuentes PA [address] [place] [address] PCP - General Family Practice 10/01/23 documented as of this encounter
[2024-09-24 11:32] LABS: Hematocrit 40.1 % (35.0-42.0); Hemoglobin 12.4 g/dL (11.7-13.8); Mean Corpuscular HGB Conc 30.9 g/dL (32-36); Mean Corpuscular Volume 93.7 fL (78.0-102.0); Mean Platelet Volume 9.6 fl (9.2-11.8); Platelet Count Result 233 K/mm3 (150-420); Red Blood Count 4.28 M/mm3 (4.20-5.40); Red Cell Distribution Width 13.3 % (11.6-14.4); White Blood Count 10.2 K/mm3 (4.8-10.8)
[2024-09-24 13:13] LABS: Alanine Aminotransferase 11 U/L (6-35); Albumin Level 3.3 g/dL (3.5-5.1); Alkaline Phosphatase 73 U/L (38-126); Anion Gap 2 mmol/L (4-12); Aspartate Amino Transferase 21 U/L (14-36); Bilirubin Direct < 0.1 mg/dL (0-0.3); Bilirubin,Total 0.5 mg/dL (0.2-1.3); Blood Urea Nitrogen 38 mg/dL (7-17); Calcium 8.5 mg/dL (8.4-10.2); Carbon Dioxide 29 mmol/L (22-30); Chloride 101 mmol/L (98-107); Cholesterol 182 mg/dL (0-200); Estimated Glomerular Filt Rate 27; Glucose 146 mg/dL (65-110); HDL Direct 46 mg/dL; LDL Cholesterol Calculated 96 mg/dL (<130); Osmolality Calculated 286 mOsm/kg (285-295); Sodium 132 mmol/L (137-145); Total Protein 5.6 g/dL (6.3-8.2); Triglycerides 201 mg/dL (<150)
== END 2024-09-24 10:36 | disposition home or self-care (01) ==
LOC: CHSLAB 10:38
PROVIDERS: PCP Family Medicine; Visit Provider Family Medicine
DX: D51.0 Vitamin B12 deficiency anemia due to intrinsic factor deficiency (principal); D45 Polycythemia vera; I67.9 Cerebrovascular disease, unspecified; R94.6 Abnormal results of thyroid function studies; R94.5 Abnormal results of liver function studies; E78.5 Hyperlipidemia, unspecified
CPT/HCPCS: 36415; 80053; 80061; 82248; 82607; 84443; 85027